=== PATIENT | male | born 1935 | race Caucasian/White ===

== ENCOUNTER 2017-09-14 07:45 | Inpatient (IN) | payer MEDICARE ==
[2017-09-14 08:38] VITALS: BP 132/70
[2017-09-14] MEDS ORDERED: Hydrocodone/APAP 5mg/325mg Tab PO PRN (09:46)
[2017-09-14] MEDS ORDERED: Maalox 30 mL Cup PO PRN (09:46)
[2017-09-14] MEDS ORDERED: Ipratropium Neb 0.5 mg/2.5 mL UD IH PRN (09:46)
[2017-09-14] MEDS ORDERED: Albuterol Nebulizer 2.5mg/3mL HHN PRN (09:46)
[2017-09-14] MEDS ORDERED: Meperidine 50 mg/mL 1mL Syr ONE ×2 (09:49→10:35)
[2017-09-14] MEDS ORDERED: Midazolam 1mg/ml 2 ml vial IV ONE (09:49)
[2017-09-14] MEDS ORDERED: Atropine Sulfate 1 mg/mL 1 mL Vial IVP PRN (11:01)
[2017-09-14] MEDS ORDERED: Metoclopramide 5 mg/mL 2mL Vial IVP PRN (11:01)
[2017-09-14] MEDS ORDERED: Hydrocodone/APAP 5mg/325mg Tab GT PRN (11:01)
[2017-09-14] MEDS ORDERED: Morphine Sulfate 2 mg/mL 1mL Syr IVP PRN (11:01)
[2017-09-14] MEDS ORDERED: Lactulose 10 Gm/15 mL 30mL UDC GT PRN (11:01)
[2017-09-14] MEDS ORDERED: Meperidine 25 mg/mL 1mL Syr IVP PRN (11:08)
[2017-09-14] MEDS ORDERED: Lactated Ringer 1,000 ML IV SCH (11:15)
--- NOTE | 2017-09-14 11:47 | Operative Report ---
DATE OF SURGERY: 09/14/2017 PREOPERATIVE DIAGNOSES: 1. Stage IV sacral decubitus ulcer. 2. Incontinence. 3. Cervical fracture, C2 with paraplegia. 4. End-stage renal disease. 5. Pneumonia. 6. Dementia. POSTOPERATIVE DIAGNOSES: 1. Stage IV sacral decubitus ulcer. 2. Incontinence. 3. Cervical fracture, C2 with paraplegia. 4. End-stage renal disease. 5. Pneumonia. 6. Dementia. OPERATION DONE: 1. Diverting colostomy. 2. Excisional debridement of sacral decubitus ulcer, size 15 x 12 cm. 3. Application of wound VAC. SURGEON: Thony Alfonso M.D. ANESTHESIA: General. ANESTHESIOLOGIST: Wade Gandara M.D. Informed consent discussed extensively with the and daughter prior to the operation in the condition of fever and fecal contamination as a result of incontinence. ESTIMATED BLOOD LOSS: 10 mL. DESCRIPTION OF ILLNESS: The patient was given general anesthesia. The abdomen was prepped with Betadine and draped in appropriate manner. An incision was made at the midline below the umbilicus to the suprapubic area. ____ to coagulate. Some fluid in the abdominal cavity was aspirated. This was serous. The descending colon was dissected free from the lateral abdominal wall to allow for the descending colon to be freed. The sigmoid was then transected with the LATA instrument and the staple line was reinforced with 3-0 silk. The ascending portion was brought out as a colostomy in the left lower quadrant of the abdomen. The mesentery was sutured to the lateral abdominal wall with 3-0 silk to prevent internal herniation. The colon was then sutured to the anterior abdominal wall utilizing 3-0 silk. The abdominal incision was closed with running suture of #1 PDS and the skin was closed with subcuticular suture of 4-0 Vicryl. Dermabond was placed over this for dressing. The colostomy was matured utilizing an inverting suture of 4-0 Vicryl and colostomy bag was placed over this. The patient then turned on the right lateral decubitus physician and the sacral decubitus ulcer was debrided with scissors. Following satisfactory debridement, silver foam was applied over the wound, which was then connected to wound VAC. The patient tolerated the procedure well and will be sent to ICU for further observation. JOB# [id number]
--- NOTE | 2017-09-14 12:17 | Diagnostic Imaging Report ---
CHEST X-RAY: AP view INDICATION: ET tube placement COMPARISON: None FINDINGS: ET tube is seen with tip 4.8 cm above the josé miguel. NG tube is visualized the spinal distal tip not seen. Bilateral effusions and hazy infiltrates are noted. Mild cardiomegaly is noted with atherosclerosis. There is evidence of prior median sternotomy. Postsurgical changes of the lower cervical and cervical thoracic spine are noted. IMPRESSION: ET tube with tip 4.8 cm above the José Miguel. Bilateral pleural effusions with diffuse bilateral infiltrates. Postsurgical changes.
[2017-09-14 13:13] LABS: BE(B) 3.3 mEq/L (-3.0-3.0); HCO3 27.6 mEq/L (20.0-26.0); pH 7.44 (7.35-7.45)
[2017-09-14 13:14] LABS: ABG SOURCE Arterial; ALLEN TEST Positive; CRITICAL VALUES REPORTED BY DM; FIO2 100; MECH RATE 14; MECH VT 500
--- NOTE | 2017-09-14 14:09 | Diagnostic Imaging Report ---
Portable chest x-ray HISTORY: Shortness of breath, endotracheal tube placement Compared with prior exam performed earlier in the day (1126 hours), an endotracheal tube tip is approximately 5.0 cm above the josé miguel. There is density in the left lower hemithorax suggesting a small effusion. IMPRESSION: 1. Endotracheal tube tip approximately 5.0 cm above the josé miguel. This may be advanced approximately 2.0 cm.
[2017-09-14] MEDS ORDERED: Piperacillin/Tazobact 2.25 gm in 0.9% NS 50 ML IV SCH (14:30)
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
[2017-09-14 14:45] LABS: HEMATOCRIT 29.6 % (41.0-60); HEMOGLOBIN 9.8 gm/dL (12-16); MEAN CELL VOLUME 90.6 fl (80-99); MEAN CORPUSCULAR HGB CONC 33.2 pg (28.0-36.0); PLATELET COUNT 274 Th/cmm (150-400); RED BLOOD COUNT 3.27 Mil/cmm (3.80-5.80); RED CELL DISTRIBUTION WIDTH 15.8 % (11.5-20.0)
[2017-09-14 14:57] LABS: WHITE BLOOD COUNT 27.2 Th/cmm (4.8-10.8)
[2017-09-14 15:02] LABS: ANION GAP 14.3 (7.0-16.0); BUN/CREATININE RATIO 24.9; CALCIUM SERUM 9.5 mg/dL (8.6-10.3); CARBON DIOXIDE 24.4 mEq/L (21.0-31.0); CHLORIDE 97 mEq/L (98-107); GLUCOSE 175 mg/dL (70-105); POTASSIUM SERUM 4.7 mEq/L (3.5-5.1); SODIUM SERUM 131 mEq/L (136-145)
[2017-09-14] MEDS: Ipratropium Neb 0.5 mg/2.5 mL UD IH SCH ×2 (15:06→18:45)
[2017-09-14] MEDS: Albuterol Nebulizer 2.5mg/3mL HHN SCH ×2 (15:06→18:45)
[2017-09-14 15:11] LABS: BUN - UREA NITROGEN 112 mg/dL (7-25)
[2017-09-14 15:12] LABS: CREATININE - SERUM 4.5 mg/dL (0.7-1.3)
[2017-09-14 15:38] LABS: BAND NEUTROPHILE 5 % (0-10); BASOPHIL 0 % (0-3); EOSINOPHIL 0 % (0-5); NEUTROPHILS 87 % (40-80); PLATELET ESTIMATE ADEQUATE (NORMAL); PLATELET MORPHOLOGY NORMAL (NORMAL); TOTAL CELLS COUNTED 100
[2017-09-14] MEDS: INSULIN ASPART, RECOMBINANT 100 UNITS/ML SUBQ SCH ×3 (18:56→20:59)
[2017-09-14] MEDS: Lactobacillus Rhamnosus 10 Billion CFU Capsule GT SCH (19:03)
[2017-09-14] MEDS: D5-0.9%NS 1,000 ML IV SCH (19:05)
[2017-09-14] MEDS: Meropenem 500 MG in Sodium Chloride 0.9% 100 ML IV SCH (19:10)
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
[2017-09-14] MEDS: Chlorhexidine Gluconate 0.12% 15mL Mouthwash MM SCH (20:33)
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
[2017-09-15] MEDS: Meropenem 500 MG in Sodium Chloride 0.9% 100 ML IV SCH ×2 (04:50→18:21)
[2017-09-15 07:17] LABS: HEMATOCRIT 26.7 % (41.0-60); MEAN CELL VOLUME 88.6 fl (80-99); MEAN CORPUSCULAR HEMOGLOBIN 29.8 pg (27.0-31.0); MEAN CORPUSCULAR HGB CONC 33.7 pg (28.0-36.0); MEAN PLATELET VOLUME 8.8 fl; PLATELET COUNT 247 Th/cmm (150-400); RED BLOOD COUNT 3.01 Mil/cmm (3.80-5.80)
[2017-09-15 07:42] LABS: WHITE BLOOD COUNT 29.1 Th/cmm (4.8-10.8)
[2017-09-15 07:45] LABS: ALB/GLOB RATIO 0.6 (1.0-1.8); ALKALINE PHOSPHATASE 238 U/L (34-104); ANION GAP 17.6 (7.0-16.0); BILIRUBIN,TOTAL 0.6 mg/dL (0.3-1.0); BUN/CREATININE RATIO 23.5; CALCIUM SERUM 9.2 mg/dL (8.6-10.3); CARBON DIOXIDE 22.5 mEq/L (21.0-31.0); CHLORIDE 98 mEq/L (98-107); GLUCOSE 221 mg/dL (70-105); MAGNESIUM 2.7 mg/dL (1.9-2.7); PHOSPHOROUS 3.7 mg/dL (2.5-5.0); POTASSIUM SERUM 5.1 mEq/L (3.5-5.1); SGOT 20 U/L (13-39); SGPT/ALT 42 U/L (7-52); SODIUM SERUM 133 mEq/L (136-145)
[2017-09-15] MEDS: INSULIN ASPART, RECOMBINANT 100 UNITS/ML SUBQ SCH ×4 (07:48→21:00)
[2017-09-15] MEDS: Ipratropium Neb 0.5 mg/2.5 mL UD IH SCH ×4 (07:50→19:18)
[2017-09-15] MEDS: Albuterol Nebulizer 2.5mg/3mL HHN SCH ×4 (07:50→19:18)
[2017-09-15 08:33] LABS: BUN - UREA NITROGEN 115 mg/dL (7-25); CREATININE - SERUM 4.9 mg/dL (0.7-1.3)
[2017-09-15 08:40] LABS: ANISOCYTOSIS 1+; BAND NEUTROPHILE 5 % (0-10); NEUTROPHILS 91 % (40-80); PLATELET ESTIMATE ADEQUATE (NORMAL); PLATELET MORPHOLOGY NORMAL (NORMAL); TOTAL CELLS COUNTED 100
[2017-09-15] MEDS: Venelex 60gm Tube TP SCH ×3 (08:45→16:35)
[2017-09-15] MEDS ORDERED: Multivitamin 5 mL UDC GT SCH (09:00)
[2017-09-15] MEDS ORDERED: COLLAGENASE CLOSTRIDIUM HIST MC SCH (09:00)
[2017-09-15] MEDS: Lactobacillus Rhamnosus 10 Billion CFU Capsule GT SCH (09:51)
[2017-09-15] MEDS: Chlorhexidine Gluconate 0.12% 15mL Mouthwash MM SCH ×2 (09:55→20:46)
[2017-09-15] MEDS: D5-0.9%NS 1,000 ML IV SCH ×2 (10:01→12:00)
--- NOTE | 2017-09-15 11:27 | Consultation ---
Consult Note - Consult Note Service Date: 09/15/17 Referring Physician: Eusebio Alvares Consult Note: PHYSICIAN Consultation Note: Date of Admission: 09/14/17 Purpose of Consultation: ESRD Chief Complaint: History of Present Illness: Patient MAURICE RUTLEDGE was admitted to location Intensive Care Unit with SACRUM WOUND. HE WAS TRANSFERRED FROM [facility] FOR DIVERTING COLOSTOMY, EXCISIONAL DEBRIDEMENT OF SACRAL DECUB ULCER AND APPLICATION OF WOUND VAC. HE UNDERWENT SURGERY YESTERDAY AND IS DUE FOR HIS DIALYSIS TODAY. CURRENTLY HE IS SEEN & EXAMINED, INTUBATED IN THE ICU. Past Medical History: PER HPI, AND DIAGNOSES SEEN BELOW Diagnoses SEPSIS, UNSPECIFIED ORGANISM (09/14/17) ANEMIA, UNSPECIFIED (09/14/17) TYPE 2 DIABETES MELLITUS W DIABETIC CHRONIC KIDNEY DISEASE (09/14/17) HYPERLIPIDEMIA, UNSPECIFIED (09/14/17) HYPOKALEMIA (09/14/17) UNSPECIFIED DEMENTIA WITHOUT BEHAVIORAL DISTURBANCE (09/14/17) NICOTINE DEPENDENCE, CIGARETTES, UNCOMPLICATED (09/14/17) PARAPLEGIA, UNSPECIFIED (09/14/17) HYP CHR KIDNEY DISEASE W STAGE 5 CHR KIDNEY DISEASE OR ESRD (09/14/17) ATHSCL HEART DISEASE OF [place] CORONARY ARTERY W/O ANG PCTRS (09/14/17) OLD MYOCARDIAL INFARCTION (09/14/17) UNSPECIFIED ATRIAL FLUTTER (09/14/17) UNSPECIFIED DIASTOLIC (CONGESTIVE) HEART FAILURE (09/14/17) PNEUMONITIS DUE TO INHALATION OF FOOD AND VOMIT (09/14/17) ACUTE RESPIRATORY FAILURE, UNSP W HYPOXIA OR HYPERCAPNIA (09/14/17) PRESSURE ULCER OF SACRAL REGION, STAGE 4 (09/14/17) END STAGE RENAL DISEASE (09/14/17) UNSPECIFIED URINARY INCONTINENCE (09/14/17) GASTROSTOMY STATUS (09/14/17) PRESENCE OF AORTOCORONARY BYPASS GRAFT (09/14/17) DEPENDENCE ON RENAL DIALYSIS (09/14/17) Allergies Allergy/AdvReac Type Severity Reaction Status Date / Time No Known Allergies Allergy Verified 09/14/17 08:12 Vital Signs Temp 97.3 F 09/15/17 07:00 Pulse 86 09/15/17 11:00 Resp 18 09/15/17 11:00 BP 126/67 09/15/17 11:00 Pulse Ox 100 09/15/17 11:00 Intake & Output 09/14/17 09/15/17 09/15/17 18:59 06:59 18:59 Intake Total 1073.333 126.667 Output Total 0 30 Balance 0 1043.333 126.667 Weight (lbs) 71.169 kg 71.214 kg 71.214 kg Intake: Intake, IV Amount 1073.333 126.667 D5-0.9%Ns 1,000 ml @ 80 873.333 126.667 mls/hr IV .[id number] [facility] Rx #:[id number] Meropenem 500 mg In 200 Sodium Chloride 0.9% 100 ml @ 100 mls/hr IV Q12H [facility]I Rx#:[id number] Oral 0 Output: Urine 0 0 Other 30 Other: # Bowel Movements 0 0 Laboratory Results - last 24 hr 09/14/17 09/14/17 09/14/17 13:01 14:29 14:29 WBC 27.2 H* RBC 3.27 L Hgb 9.8 L Hct 29.6 L MCV 90.6 MCH 30.0 MCHC Differential 33.2 RDW 15.8 Plt Count 274 MPV 9.0 Band Neutrophils % 5 Neutrophils (Manual) 87 H Lymphocytes 3 L Monocytes 5 Eosinophils 0 Basophils 0 Platelet Estimate ADEQUATE Platelet Morphology NORMAL Anisocytosis RBC Morph Micro Appear NORMAL Specimen Source Arterial Sample Site Right Radial pH 7.44 pCO2 41.0 pO2 343.0 H HCO3 27.6 H Base Excess 3.3 H O2 Saturation 100.0 Willi Test Positive Vent Rate 14 Inspired O2 100 Tidal Volume 500 PEEP 5 Pressure (ins/psv/peep) N/A Critical Value DM Sodium 131 L Potassium 4.7 Chloride 97 L Carbon Dioxide 24.4 Anion Gap 14.3 BUN 112 H* Creatinine 4.5 H* Est GFR ( Amer) TNP Est GFR (Non-Af Amer) TNP BUN/Creatinine Ratio 24.9 Glucose 175 H POC Glucose Hemoglobin A1c % Calcium 9.5 Phosphorus Magnesium Total Bilirubin AST ALT Alkaline Phosphatase B-Natriuretic Peptide Total Protein Albumin Globulin Albumin/Globulin Ratio Random Vancomycin 09/14/17 09/14/17 09/14/17 14:30 14:30 18:54 WBC RBC Hgb Hct MCV MCH MCHC Differential RDW Plt Count MPV Band Neutrophils % Neutrophils (Manual) Lymphocytes Monocytes Eosinophils Basophils Platelet Estimate Platelet Morphology Anisocytosis RBC Morph Micro Appear Specimen Source Sample Site pH pCO2 pO2 HCO3 Base Excess O2 Saturation Willi Test Vent Rate Inspired O2 Tidal Volume PEEP Pressure (ins/psv/peep) Critical Value Sodium Potassium Chloride Carbon Dioxide Anion Gap BUN Creatinine Est GFR ( Amer) Est GFR (Non-Af Amer) BUN/Creatinine Ratio Glucose POC Glucose 128 H Hemoglobin A1c % Calcium Phosphorus Magnesium Total Bilirubin AST ALT Alkaline Phosphatase B-Natriuretic Peptide 4140.0 H Total Protein Albumin Globulin Albumin/Globulin Ratio Random Vancomycin 17.0 09/14/17 09/15/17 09/15/17 20:37 06:35 06:39 WBC 29.1 H* RBC 3.01 L Hgb 9.0 L Hct 26.7 L MCV 88.6 MCH 29.8 MCHC Differential 33.7 RDW 16.0 Plt Count 247 MPV 8.8 Band Neutrophils % 5 Neutrophils (Manual) 91 H Lymphocytes 3 L Monocytes 1 L Eosinophils Basophils Platelet Estimate ADEQUATE Platelet Morphology NORMAL Anisocytosis 1+ RBC Morph Micro Appear ABNORMAL Specimen Source Sample Site pH pCO2 pO2 HCO3 Base Excess O2 Saturation Willi Test Vent Rate Inspired O2 Tidal Volume PEEP Pressure (ins/psv/peep) Critical Value Sodium Potassium Chloride Carbon Dioxide Anion Gap BUN Creatinine Est GFR ( Amer) Est GFR (Non-Af Amer) BUN/Creatinine Ratio Glucose POC Glucose 183 H Hemoglobin A1c % 6.5 H Calcium Phosphorus Magnesium Total Bilirubin AST ALT Alkaline Phosphatase B-Natriuretic Peptide Total Protein Albumin Globulin Albumin/Globulin Ratio Random Vancomycin 09/15/17 09/15/17 06:39 07:46 WBC RBC Hgb Hct MCV MCH MCHC Differential RDW Plt Count MPV Band Neutrophils % Neutrophils (Manual) Lymphocytes Monocytes Eosinophils Basophils Platelet Estimate Platelet Morphology Anisocytosis RBC Morph Micro Appear Specimen Source Sample Site pH pCO2 pO2 HCO3 Base Excess O2 Saturation Willi Test Vent Rate Inspired O2 Tidal Volume PEEP Pressure (ins/psv/peep) Critical Value Sodium 133 L Potassium 5.1 Chloride 98 Carbon Dioxide 22.5 Anion Gap 17.6 H BUN 115 H* Creatinine 4.9 H* Est GFR ( Amer) TNP Est GFR (Non-Af Amer) TNP BUN/Creatinine Ratio 23.5 Glucose 221 H POC Glucose 233 H Hemoglobin A1c % Calcium 9.2 Phosphorus 3.7 Magnesium 2.7 Total Bilirubin 0.6 AST 20 ALT 42 Alkaline Phosphatase 238 H B-Natriuretic Peptide Total Protein 6.3 Albumin 2.3 L Globulin 4.0 Albumin/Globulin Ratio 0.6 L Random Vancomycin Home Medication Medication Instructions Recorded Type Albuterol Nebulizer 2.5mg/3mL 3 ml INH Q6HR PRN 09/14/17 History [Albuterol Neb UD*] Amlodipine Besylate 5 mg GT DAILY 09/14/17 History Atropine Sulfate [Atropine] 1 mg IVP Q4HR PRN 09/14/17 History Collagenase Clostridium Hist. 1 each MC DAILY 09/14/17 History [Collagenase] Dextrose 50% 50 ml IVP PRN 09/14/17 History Dextrose [Glucose Gel] 38 gm PRN 09/14/17 History Enalaprilat [Vasotec] 2.5 mg IV Q4HR PRN 09/14/17 History Famotidine [Pepcid] 20 mg GT BID 09/14/17 History Folic Acid [Folate*] 1 mg GT DAILY 09/14/17 History Hydralazine HCl 10 mg IVP Q4HR PRN 09/14/17 History Hydrocodone/Acetaminophen [Lortab 1 tab GT Q6HR PRN 09/14/17 History 5/325 325 mg-5 mg*] Insulin Human Isophane (NPH) 12 units SQ BID 09/14/17 History [NovoLIN N] Insulin Human Regular [NovoLIN R*] SQ 09/14/17 History Lactobacillus Acidophilus 1 each GT Q8HR 09/14/17 History [Acidophilus Lactobacillus] Lactulose 10 gm GT Q12HR PRN 09/14/17 History Losartan/Hydrochlorothiazide 100 mg GT DAILY 09/14/17 History [Losartan-Hctz 100-25 mg Tab] Metoclopramide [Reglan] 10 mg IVP Q6HR PRN 09/14/17 History Metoprolol Tartrate [Lopressor] 50 mg GT BID 09/14/17 History Morphine Sulfate/0.9% NaCl/Pf 2 mg IVP Q6HR PRN 09/14/17 History [Morphine 2 mg/2 ml-0.9% NaCl] Multivitamin [Tab-A-Cirilo] 1 tab GT DAILY 09/14/17 History Current Medications Generic Name Dose Route Start Last Admin Trade Name Freq PRN Reason Stop Dose Admin Acetaminophen 650 mg 09/14/17 09:46 Tylenol PO 11/13/17 09:45 Q4H PRN Pain Or Fever above 101 Acetaminophen/Hydrocodone Bitart 1 tab 09/14/17 09:46 Albia 5mg/325mg PO 11/13/17 09:45 Q4H PRN Pain (Severe) Acetaminophen/Hydrocodone Bitart 1 tab 09/14/17 11:01 Albia 5mg/325mg GT 11/13/17 11:00 Q6HR PRN Pain (Mild) Al Hydrox/Mg Hydrox/Simethicone 30 ml 09/14/17 09:46 Maalox PO 11/13/17 09:45 Q6H PRN Dyspepsia Albuterol Sulfate 2.5 mg 09/14/17 09:46 Albuterol 2.5mg/3ml Neb Ud HHN 11/13/17 09:45 Q2HRT PRN Shortness of Breath or Wheeze Albuterol Sulfate 2.5 mg 09/14/17 15:00 09/15/17 07:50 Albuterol 2.5mg/3ml Neb Ud HHN 11/13/17 14:59 2.5 mg QIDRT MAGI Administration Amlodipine Besylate 5 mg 09/15/17 09:00 09/15/17 10:14 Norvasc GT 11/14/17 08:59 Not Given DAILY MAGI Atropine Sulfate 1 mg 09/14/17 11:01 Atropine IVP 11/13/17 11:00 Q4HR PRN BRADYCARDIA Chlorhexidine Gluconate 15 ml 09/14/17 20:00 09/15/17 09:55 Peridex MM 11/13/17 19:59 15 ml 0800,2000 MAGI Administration Famotidine 20 mg 09/15/17 09:00 09/15/17 09:51 Pepcid IVP 11/14/17 08:59 20 mg Q12H MAGI Administration Folic Acid 1 mg 09/15/17 09:00 09/15/17 09:52 Folate GT 11/14/17 08:59 1 mg DAILY MAGI Administration Hydrochlorothiazide 25 mg 09/15/17 09:00 09/15/17 10:14 Hctz GT 11/14/17 08:59 Not Given DAILY MAGI Dextrose/Sodium Chloride 1,000 mls @ 80 mls/hr 09/14/17 10:00 09/15/17 10:01 D5-0.9%Ns IV 11/13/17 09:59 80 mls/hr .[id number] MAGI Administration Meropenem 500 mg/ Sodium 100 mls @ 100 mls/hr 09/14/17 17:00 09/15/17 06:55 Chloride IV 11/13/17 16:59 Infused Q12H MAGI Infusion Amikacin Sulfate 350 mg/ 101.4 mls @ 100 mls/hr 09/15/17 14:00 Sodium Chloride IV 09/15/17 18:00 1400 [facility] Vancomycin HCl 500 mg/ Sodium 100 mls @ 100 mls/hr 09/15/17 15:00 Chloride IV 09/15/17 18:00 1500 [facility] Insulin Aspart 0 units 09/14/17 11:30 09/15/17 07:48 Novolog SUBQ 11/13/17 11:29 Not Given ACHS [facility] Protocol Ipratropium Thornton 0.5 mg 09/14/17 09:46 Atrovent Neb 0.5mg/2.5ml 11/13/17 09:45 Q2HRT PRN Shortness of Breath or Wheeze Ipratropium Thornton 0.5 mg 09/14/17 15:00 09/15/17 07:50 Atrovent Neb 0.5mg/2.5ml 11/13/17 14:59 0.5 mg QIDRT MAGI Administration Lactobacillus Rhamnosus 1 each 09/14/17 13:00 09/15/17 09:51 Culturelle GT 11/13/17 12:59 1 each DAILY MAGI Administration Lactulose 10 gm 09/14/17 11:01 Cephulac GT Q12HR PRN CONSTIPATION Losartan Potassium 100 mg 09/15/17 09:00 09/15/17 10:14 Cozaar GT 11/14/17 08:59 Not Given DAILY [facility]I Metoclopramide HCl 10 mg 09/14/17 11:01 Reglan IVP 11/13/17 11:00 Q6HR PRN Nausea / Vomiting Metoprolol Tartrate 50 mg 09/14/17 17:00 09/15/17 10:14 Lopressor GT 11/13/17 16:59 Not Given BID MAGI Miscellaneous 1 each 09/15/17 09:00 Collagenase Clostridium Hist. [Collagenase] 11/14/17 08:59 DAILY MAGI Miscellaneous 1 ea 09/14/17 13:30 Vancomycin Iv Per Pharmacy 11/13/17 13:29 PRN MAGI Miscellaneous 1 ea 09/14/17 15:03 Amikacin Iv Per Pharmacy MC 11/13/17 15:02 PRN PRN PROTOCOL Morphine Sulfate 2 mg 09/14/17 09:46 Morphine IVP 11/13/17 09:45 Q4H PRN Pain (Severe) Morphine Sulfate 2 mg 09/14/17 11:01 Morphine IVP Q6HR PRN PAIN Multivitamins/Vitamin C 1 tab 09/15/17 09:44 Theragran GT 11/14/17 08:59 DAILY MAGI Ondansetron HCl 4 mg 09/14/17 09:46 Zofran IV 11/13/17 09:45 Q8H PRN Nausea / Vomiting Review of Systems: A 12 point ROS was reviewed with the pertinent positive and negatives noted in the HPI. Social History Smoking Status Smoker, status unknown Physical Exam: General: INTUBATED, AROUSABLE HEENT: SCLERAE ANICTERIC, OP MOIST Neck: SUPPLE +CERVICAL COLLAR Cardio: S1S2 RRR Respiratory: BIBASILAR RALES Abdominal: SOFT +COLOSTOMY Genital/Urinary: NOT DONE Extremities: NO EDEMA Neurological: N/A Assessment: 1. ESRD/DIALYSIS STATUS 2. ANEMIA W ESRD 3. ACUTE RESP FAILURE 4. INFECTED SACRAL DECUB S/P EXCISIONAL DEBRIDEMENT AND PLACEMENT OF WOUND VAC 5. DM2 WITH ESRD 6. HTN W ESRD 7. DIVERTING COLOSTOMY STATUS Plan: 1. DIALYSIS THIS PM 2. CONT ABX 3. WOUND CARE 4. WEAN VENT PER PULM Signed, Gill Vu [id number]
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
--- NOTE | 2017-09-15 13:36 | General Progress Note ---
Subjective - Review of Systems Service Date: 09/15/17 Events since last encounter: for possible extubation today right hip ulcer need debridement Objective - Results Result Diagrams: 09/15/17 06:39 09/15/17 06:39 Recent Labs: Laboratory Last Values WBC 29.1 Th/cmm (4.8-10.8) H* 09/15/17 06:39 RBC 3.01 Mil/cmm (3.80-5.80) L 09/15/17 06:39 Hgb 9.0 gm/dL (12-16) L 09/15/17 06:39 Hct 26.7 % (41.0-60) L 09/15/17 06:39 MCV 88.6 fl (80-99) 09/15/17 06:39 MCH 29.8 pg (27.0-31.0) 09/15/17 06:39 MCHC Differential 33.7 pg (28.0-36.0) 09/15/17 06:39 RDW 16.0 % (11.5-20.0) 09/15/17 06:39 Plt Count 247 Th/cmm (150-400) 09/15/17 06:39 MPV 8.8 fl 09/15/17 06:39 Band Neutrophils % 5 % (0-10) 09/15/17 06:39 Neutrophils (Manual) 91 % (40-80) H 09/15/17 06:39 Lymphocytes 3 % (20-50) L 09/15/17 06:39 Monocytes 1 % (2-10) L 09/15/17 06:39 Eosinophils 0 % (0-5) 09/14/17 14:29 Basophils 0 % (0-3) 09/14/17 14:29 Platelet Estimate ADEQUATE (NORMAL) 09/15/17 06:39 Platelet Morphology NORMAL (NORMAL) 09/15/17 06:39 Anisocytosis 1+ 09/15/17 06:39 RBC Morph Micro Appear ABNORMAL (NORMAL) 09/15/17 06:39 Specimen Source Arterial 09/14/17 13:01 Sample Site Right Radial 09/14/17 13:01 pH 7.44 (7.35-7.45) 09/14/17 13:01 pCO2 41.0 mmHg (35.0-45.0) 09/14/17 13:01 pO2 343.0 mmHg (80.0-100.0) H 09/14/17 13:01 HCO3 27.6 mEq/L (20.0-26.0) H 09/14/17 13:01 Base Excess 3.3 mEq/L (-3.0-3.0) H 09/14/17 13:01 O2 Saturation 100.0 % (92.0-100.0) 09/14/17 13:01 Willi Test Positive 09/14/17 13:01 Vent Rate 14 09/14/17 13:01 Inspired O2 100 09/14/17 13:01 Tidal Volume 500 09/14/17 13:01 PEEP 5 09/14/17 13:01 Pressure (ins/psv/peep) N/A 09/14/17 13:01 Critical Value DM 09/14/17 13:01 Sodium 133 mEq/L (136-145) L 09/15/17 06:39 Potassium 5.1 mEq/L (3.5-5.1) 09/15/17 06:39 Chloride 98 mEq/L (98-107) 09/15/17 06:39 Carbon Dioxide 22.5 mEq/L (21.0-31.0) 09/15/17 06:39 Anion Gap 17.6 (7.0-16.0) H 09/15/17 06:39 BUN 115 mg/dL (7-25) H* 09/15/17 06:39 Creatinine 4.9 mg/dL (0.7-1.3) H* 09/15/17 06:39 Est GFR ( Amer) TNP 09/15/17 06:39 Est GFR (Non-Af Amer) TNP 09/15/17 06:39 BUN/Creatinine Ratio 23.5 09/15/17 06:39 Glucose 221 mg/dL (70-105) H 09/15/17 06:39 POC Glucose 251 MG/DL (70 - 105) H 09/15/17 12:26 Hemoglobin A1c % 6.5 % (4.0-6.0) H 09/15/17 06:35 Calcium 9.2 mg/dL (8.6-10.3) 09/15/17 06:39 Phosphorus 3.7 mg/dL (2.5-5.0) 09/15/17 06:39 Magnesium 2.7 mg/dL (1.9-2.7) 09/15/17 06:39 Total Bilirubin 0.6 mg/dL (0.3-1.0) 09/15/17 06:39 AST 20 U/L (13-39) 09/15/17 06:39 ALT 42 U/L (7-52) 09/15/17 06:39 Alkaline Phosphatase 238 U/L (34-104) H 09/15/17 06:39 B-Natriuretic Peptide 4140.0 pg/mL (5.0-100.0) H 09/14/17 14:30 Total Protein 6.3 gm/dL (6.0-8.3) 09/15/17 06:39 Albumin 2.3 gm/dL (4.2-5.5) L 09/15/17 06:39 Globulin 4.0 gm/dL 09/15/17 06:39 Albumin/Globulin Ratio 0.6 (1.0-1.8) L 09/15/17 06:39 Random Vancomycin 17.0 ug/mL (5.0-40.0) 09/14/17 14:30 - Physical Exam Vitals and I&O: Vital Signs Temp 97.3 F 09/15/17 07:00 Pulse 84 09/15/17 11:58 Resp 18 09/15/17 11:00 BP 126/67 09/15/17 11:00 Pulse Ox 100 09/15/17 11:58 Intake & Output 09/14/17 09/15/17 09/15/17 18:59 06:59 18:59 Intake Total 1073.333 126.667 Output Total 0 30 Balance 0 1043.333 126.667 Weight (lbs) 71.169 kg 71.214 kg 71.214 kg Intake: Intake, IV Amount 1073.333 126.667 D5-0.9%Ns 1,000 ml @ 80 873.333 126.667 mls/hr IV .[id number] [facility] Rx #:[id number] Meropenem 500 mg In 200 Sodium Chloride 0.9% 100 ml @ 100 mls/hr IV Q12H [facility] Rx#:[id number] Oral 0 Output: Urine 0 0 Other 30 Other: # Bowel Movements 0 0 Active Medications: Current Medications Acetaminophen (Tylenol) 650 mg PO Q4H PRN PRN Reason: Pain Or Fever above 101 Stop: 11/13/17 09:45 Acetaminophen/Hydrocodone Bitart ([place] 5mg/325mg) 1 tab PO Q4H PRN PRN Reason: Pain (Severe) Stop: 11/13/17 09:45 Acetaminophen/Hydrocodone Bitart ([place] 5mg/325mg) 1 tab GT Q6HR PRN PRN Reason: Pain (Mild) Stop: 11/13/17 11:00 Al Hydrox/Mg Hydrox/Simethicone (Maalox) 30 ml PO Q6H PRN PRN Reason: Dyspepsia Stop: 11/13/17 09:45 Albuterol Sulfate (Albuterol 2.5mg/3ml Neb Ud) 2.5 mg HHN Q2HRT PRN PRN Reason: Shortness of Breath or Wheeze Stop: 11/13/17 09:45 Albuterol Sulfate (Albuterol 2.5mg/3ml Neb Ud) 2.5 mg HHN QIDRT [facility] Stop: 11/13/17 14:59 Last Admin: 09/15/17 11:59 Dose: 2.5 mg Amlodipine Besylate (Norvasc) 5 mg GT DAILY [facility] Stop: 11/14/17 08:59 Last Admin: 09/15/17 10:14 Dose: Not Given Atropine Sulfate (Atropine) 1 mg IVP Q4HR PRN PRN Reason: BRADYCARDIA Stop: 11/13/17 11:00 Chlorhexidine Gluconate (Peridex) 15 ml MM 0800,2000 [facility] Stop: 11/13/17 19:59 Last Admin: 09/15/17 09:55 Dose: 15 ml Famotidine (Pepcid) 20 mg IVP Q12H [facility] Stop: 11/14/17 08:59 Last Admin: 09/15/17 09:51 Dose: 20 mg Folic Acid (Folate) 1 mg GT DAILY [facility] Stop: 11/14/17 08:59 Last Admin: 09/15/17 09:52 Dose: 1 mg Hydrochlorothiazide (Hctz) 25 mg GT DAILY [facility] Stop: 11/14/17 08:59 Last Admin: 09/15/17 10:14 Dose: Not Given Meropenem 500 mg/ Sodium (Chloride) 100 mls @ 100 mls/hr IV Q12H [facility] Stop: 11/13/17 16:59 Last Infusion: 09/15/17 06:55 Dose: Infused Amikacin Sulfate 350 mg/ (Sodium Chloride) 101.4 mls @ 100 mls/hr IV 1800 [facility] Stop: 09/15/17 23:00 Vancomycin HCl 500 mg/ Sodium (Chloride) 100 mls @ 100 mls/hr IV 2000 [facility] Stop: 09/15/17 23:59 Dextrose/Sodium Chloride (D5-0.9%Ns) 1,000 mls @ 40 mls/hr IV .Q24H [facility] Stop: 11/13/17 09:59 Insulin Aspart (Novolog) 0 units SUBQ ACHS [facility] PRN Reason: Protocol Stop: 11/13/17 11:29 Last Admin: 09/15/17 07:48 Dose: Not Given Ipratropium [place] (Atrovent Neb 0.5mg/2.5ml) 0.5 mg IH Q2HRT PRN PRN Reason: Shortness of Breath or Wheeze Stop: 11/13/17 09:45 Ipratropium [place] (Atrovent Neb 0.5mg/2.5ml) 0.5 mg IH QIDRT [facility] Stop: 11/13/17 14:59 Last Admin: 09/15/17 11:58 Dose: 0.5 mg Lactobacillus Rhamnosus (Culturelle) 1 each GT DAILY [facility] Stop: 11/13/17 12:59 Last Admin: 09/15/17 09:51 Dose: 1 each Lactulose (Cephulac) 10 gm GT Q12HR PRN PRN Reason: CONSTIPATION Losartan Potassium (Cozaar) 100 mg GT DAILY [facility] Stop: 11/14/17 08:59 Last Admin: 09/15/17 10:14 Dose: Not Given Metoclopramide HCl (Reglan) 10 mg IVP Q6HR PRN PRN Reason: Nausea / Vomiting Stop: 11/13/17 11:00 Metoprolol Tartrate (Lopressor) 50 mg GT BID [facility] Stop: 11/13/17 16:59 Last Admin: 09/15/17 10:14 Dose: Not Given Miscellaneous (Collagenase Clostridium Hist. [Collagenase]) 1 each MC DAILY [facility] Stop: 11/14/17 08:59 Miscellaneous (Vancomycin Iv Per Pharmacy) 1 ea MC PRN [facility] Stop: 11/13/17 13:29 Miscellaneous (Amikacin Iv Per Pharmacy) 1 ea MC PRN PRN PRN Reason: PROTOCOL Stop: 11/13/17 15:02 Morphine Sulfate (Morphine) 2 mg IVP Q4H PRN PRN Reason: Pain (Severe) Stop: 11/13/17 09:45 Morphine Sulfate (Morphine) 2 mg IVP Q6HR PRN PRN Reason: PAIN Multivitamins/Vitamin C (Theragran) 1 tab GT DAILY [facility] Stop: 11/14/17 08:59 Ondansetron HCl (Zofran) 4 mg IV Q8H PRN PRN Reason: Nausea / Vomiting Stop: 11/13/17 09:45 - Procedures Procedures: Procedures Procedure Code Date BYPASS ASCENDING COLON TO CUTANEOUS, OPEN APPROACH [id number] 09/14/17 COLOSTOMY 67032 09/14/17 [place] SUBQ TISSUE 20 SQ CM/< 38584 09/14/17 EXCISION OF BACK SUBCU/FASCIA, OPEN APPROACH [id number] 09/14/17 RESPIRATORY VENTILATION, 24-96 CONSECUTIVE HOURS [id number] 09/14/17 Nutritional Asmnt/Malnutr-PDOC - Dietary Evaluation Malnutrition Findings (Please click <Entered> for more info): Nutritional Asmnt/Malnutrition Start: 09/15/17 12: 18 Text: Status: Active Freq: Document 09/15/17 12:18 MMULHERN (Rec: 09/15/17 12:29 MMULHERN [facility]) Nutritional Asmnt/Malnutrition Patient General Information Nutritional Screening High Risk Screening Diagnosis sacrum wound Subjective Information Per nursing notes, patient with multiple pressure wounds, 09/14 had surgery for diverting colostomy and wound vac appliaction. Patient remains intubated. Patient receives hemodialysis. G tube to low intermitent suction. Current Diet Order/ Nutrition Support NPO Patient / S.O Not Indicated Pertinent Medications maalox, D5-0.9% NS @ 80ml/hr, pepcid, folate, novolog, culturelle, lactulose, cozaar, reglan, vancomycin, theragran , zofran Pertinent Labs (09/15) Na 133, K 5.1, BUN 115 , Cr 4.9 (HD patient), Glucose 128-233, HGA1C 6.5, alkaline phosphatase 238, BNP 4140, albumin 2.3 Nutritional Hx/Data Height 1.98 m Height (Calculated Centimeters) 198.1 Current Weight (lbs) 71.214 kg Weight (Calculated Kilograms) 71.2 Weight (Calculated Grams) 36140.0 [place] Body Weight 214 % [place] Body Weight 73 Weight Status Underweight GI Symptoms Difficult in: Swallowing Food Allergies No Cultural/Ethnic/Jew Belief Noen indicated Skin Integrity/Comment: [place] 11, decubitus ulcer on left hip, right heel, right thigh, sacrum Current %PO intubated Nutritional Problem 2. Problem Problem Altered nutrition related lab values related to Etiology renal dysfunction/ electrolyte imbalance aeb Signs/Symptoms: Na 133, K 5.1, BUN 115, Cr 4.9 (HD patient), Glucose 128-233 1. Problem Problem Increased nutrient needs related to Etiology impaired skin integrity/ hypermetabolic state aeb Signs/Symptoms: patient receives HD and has multiple decubitus ulcers, S/p wound vac application Intervention/Recommendation Comments 1. When medically appropriate, [facility] [place] [facility] Expected Outcomes/Goals Expected Outcomes/Goals Patient receives nutrition within 48 hours, nutrition related labs normalize, weight remains stable or trends toward ideal body weight. F/U as HR 09/17-
--- NOTE | 2017-09-15 16:42 | Infectious Disease Prog Note ---
Infectious Disease Subjective - Review of Systems Service Date: 09/15/17 Subjective: Nonew change, no fever. Infectious Disease Objective - Results Result Diagrams: 09/15/17 06:39 09/15/17 06:39 Recent Labs: Laboratory Last Values WBC 29.1 Th/cmm (4.8-10.8) H* 09/15/17 06:39 RBC 3.01 Mil/cmm (3.80-5.80) L 09/15/17 06:39 Hgb 9.0 gm/dL (12-16) L 09/15/17 06:39 Hct 26.7 % (41.0-60) L 09/15/17 06:39 MCV 88.6 fl (80-99) 09/15/17 06:39 MCH 29.8 pg (27.0-31.0) 09/15/17 06:39 MCHC Differential 33.7 pg (28.0-36.0) 09/15/17 06:39 RDW 16.0 % (11.5-20.0) 09/15/17 06:39 Plt Count 247 Th/cmm (150-400) 09/15/17 06:39 MPV 8.8 fl 09/15/17 06:39 Band Neutrophils % 5 % (0-10) 09/15/17 06:39 Neutrophils (Manual) 91 % (40-80) H 09/15/17 06:39 Lymphocytes 3 % (20-50) L 09/15/17 06:39 Monocytes 1 % (2-10) L 09/15/17 06:39 Eosinophils 0 % (0-5) 09/14/17 14:29 Basophils 0 % (0-3) 09/14/17 14:29 Platelet Estimate ADEQUATE (NORMAL) 09/15/17 06:39 Platelet Morphology NORMAL (NORMAL) 09/15/17 06:39 Anisocytosis 1+ 09/15/17 06:39 RBC Morph Micro Appear ABNORMAL (NORMAL) 09/15/17 06:39 Specimen Source Arterial 09/14/17 13:01 Sample Site Right Radial 09/14/17 13:01 pH 7.44 (7.35-7.45) 09/14/17 13:01 pCO2 41.0 mmHg (35.0-45.0) 09/14/17 13:01 pO2 343.0 mmHg (80.0-100.0) H 09/14/17 13:01 HCO3 27.6 mEq/L (20.0-26.0) H 09/14/17 13:01 Base Excess 3.3 mEq/L (-3.0-3.0) H 09/14/17 13:01 O2 Saturation 100.0 % (92.0-100.0) 09/14/17 13:01 Willi Test Positive 09/14/17 13:01 Vent Rate 14 09/14/17 13:01 Inspired O2 100 09/14/17 13:01 Tidal Volume 500 09/14/17 13:01 PEEP 5 09/14/17 13:01 Pressure (ins/psv/peep) N/A 09/14/17 13:01 Critical Value DM 09/14/17 13:01 Sodium 133 mEq/L (136-145) L 09/15/17 06:39 Potassium 5.1 mEq/L (3.5-5.1) 09/15/17 06:39 Chloride 98 mEq/L (98-107) 09/15/17 06:39 Carbon Dioxide 22.5 mEq/L (21.0-31.0) 09/15/17 06:39 Anion Gap 17.6 (7.0-16.0) H 09/15/17 06:39 BUN 115 mg/dL (7-25) H* 09/15/17 06:39 Creatinine 4.9 mg/dL (0.7-1.3) H* 09/15/17 06:39 Est GFR ( Amer) TNP 09/15/17 06:39 Est GFR (Non-Af Amer) TNP 09/15/17 06:39 BUN/Creatinine Ratio 23.5 09/15/17 06:39 Glucose 221 mg/dL (70-105) H 09/15/17 06:39 POC Glucose 251 MG/DL (70 - 105) H 09/15/17 12:26 Hemoglobin A1c % 6.5 % (4.0-6.0) H 09/15/17 06:35 Calcium 9.2 mg/dL (8.6-10.3) 09/15/17 06:39 Phosphorus 3.7 mg/dL (2.5-5.0) 09/15/17 06:39 Magnesium 2.7 mg/dL (1.9-2.7) 09/15/17 06:39 Total Bilirubin 0.6 mg/dL (0.3-1.0) 09/15/17 06:39 AST 20 U/L (13-39) 09/15/17 06:39 ALT 42 U/L (7-52) 09/15/17 06:39 Alkaline Phosphatase 238 U/L (34-104) H 09/15/17 06:39 B-Natriuretic Peptide 4140.0 pg/mL (5.0-100.0) H 09/14/17 14:30 Total Protein 6.3 gm/dL (6.0-8.3) 09/15/17 06:39 Albumin 2.3 gm/dL (4.2-5.5) L 09/15/17 06:39 Globulin 4.0 gm/dL 09/15/17 06:39 Albumin/Globulin Ratio 0.6 (1.0-1.8) L 09/15/17 06:39 Random Vancomycin 17.0 ug/mL (5.0-40.0) 09/14/17 14:30 - Physical Exam Vitals and I&O: Vital Signs Temp 97.4 F 09/15/17 12:00 Pulse 85 09/15/17 15:46 Resp 18 09/15/17 14:00 BP 103/54 09/15/17 14:00 Pulse Ox 100 09/15/17 15:46 Intake & Output 09/14/17 09/15/17 09/15/17 18:59 06:59 18:59 Intake Total 1073.333 126.667 Output Total 0 30 Balance 0 1043.333 126.667 Weight (lbs) 71.169 kg 71.214 kg 71.214 kg Intake: Intake, IV Amount 1073.333 126.667 D5-0.9%Ns 1,000 ml @ 80 873.333 126.667 mls/hr IV .[id number] [facility] Rx #:[id number] Meropenem 500 mg In 200 Sodium Chloride 0.9% 100 ml @ 100 mls/hr IV Q12H [facility] Rx#:[id number] Oral 0 Output: Urine 0 0 Other 30 Other: # Bowel Movements 0 0 Active Medications: Current Medications Acetaminophen (Tylenol) 650 mg PO Q4H PRN PRN Reason: Pain Or Fever above 101 Stop: 11/13/17 09:45 Acetaminophen/Hydrocodone Bitart ([place] 5mg/325mg) 1 tab PO Q4H PRN PRN Reason: Pain (Severe) Stop: 11/13/17 09:45 Acetaminophen/Hydrocodone Bitart ([place] 5mg/325mg) 1 tab GT Q6HR PRN PRN Reason: Pain (Mild) Stop: 11/13/17 11:00 Al Hydrox/Mg Hydrox/Simethicone (Maalox) 30 ml PO Q6H PRN PRN Reason: Dyspepsia Stop: 11/13/17 09:45 Albuterol Sulfate (Albuterol 2.5mg/3ml Neb Ud) 2.5 mg HHN Q2HRT PRN PRN Reason: Shortness of Breath or Wheeze Stop: 11/13/17 09:45 Albuterol Sulfate (Albuterol 2.5mg/3ml Neb Ud) 2.5 mg HHN QIDRT [facility] Stop: 11/13/17 14:59 Last Admin: 09/15/17 15:43 Dose: 2.5 mg Amlodipine Besylate (Norvasc) 5 mg GT DAILY [facility] Stop: 11/14/17 08:59 Last Admin: 09/15/17 10:14 Dose: Not Given Atropine Sulfate (Atropine) 1 mg IVP Q4HR PRN PRN Reason: BRADYCARDIA Stop: 11/13/17 11:00 Budesonide (Pulmicort) 0.5 mg HHN BIDRT [facility] Stop: 11/14/17 18:59 Chlorhexidine Gluconate (Peridex) 15 ml MM 0800,2000 [facility] Stop: 11/13/17 19:59 Last Admin: 09/15/17 09:55 Dose: 15 ml Famotidine (Pepcid) 20 mg IVP Q12H [facility] Stop: 11/14/17 08:59 Last Admin: 09/15/17 09:51 Dose: 20 mg Folic Acid (Folate) 1 mg GT DAILY [facility] Stop: 11/14/17 08:59 Last Admin: 09/15/17 09:52 Dose: 1 mg Hydrochlorothiazide (Hctz) 25 mg GT DAILY [facility] Stop: 11/14/17 08:59 Last Admin: 09/15/17 10:14 Dose: Not Given Meropenem 500 mg/ Sodium (Chloride) 100 mls @ 100 mls/hr IV Q12H [facility] Stop: 11/13/17 16:59 Last Infusion: 09/15/17 06:55 Dose: Infused Amikacin Sulfate 350 mg/ (Sodium Chloride) 101.4 mls @ 100 mls/hr IV 1800 [facility] Stop: 09/15/17 23:00 Vancomycin HCl 500 mg/ Sodium (Chloride) 100 mls @ 100 mls/hr IV 2000 [facility] Stop: 09/15/17 23:59 Dextrose/Sodium Chloride (D5-0.9%Ns) 1,000 mls @ 40 mls/hr IV .Q24H [facility] Stop: 11/13/17 09:59 Last Admin: 09/15/17 12:00 Dose: 40 mls/hr Insulin Aspart (Novolog) 0 units SUBQ ACHS [facility] PRN Reason: Protocol Stop: 11/13/17 11:29 Last Admin: 09/15/17 13:30 Dose: 4 units Ipratropium [place] (Atrovent Neb 0.5mg/2.5ml) 0.5 mg IH Q2HRT PRN PRN Reason: Shortness of Breath or Wheeze Stop: 11/13/17 09:45 Ipratropium [place] (Atrovent Neb 0.5mg/2.5ml) 0.5 mg IH QIDRT [facility] Stop: 11/13/17 14:59 Last Admin: 09/15/17 15:43 Dose: 0.5 mg Lactobacillus Rhamnosus (Culturelle) 1 each GT DAILY [facility] Stop: 11/13/17 12:59 Last Admin: 09/15/17 09:51 Dose: 1 each Lactulose (Cephulac) 10 gm GT Q12HR PRN PRN Reason: CONSTIPATION Losartan Potassium (Cozaar) 100 mg GT DAILY [facility] Stop: 11/14/17 08:59 Last Admin: 09/15/17 10:14 Dose: Not Given Metoclopramide HCl (Reglan) 10 mg IVP Q6HR PRN PRN Reason: Nausea / Vomiting Stop: 11/13/17 11:00 Metoprolol Tartrate (Lopressor) 50 mg GT BID [facility] Stop: 11/13/17 16:59 Last Admin: 09/15/17 10:14 Dose: Not Given Miscellaneous (Collagenase Clostridium Hist. [Collagenase]) 1 each MC DAILY [facility] Stop: 11/14/17 08:59 Miscellaneous (Vancomycin Iv Per Pharmacy) 1 ea PRN [facility] Stop: 11/13/17 13:29 Miscellaneous (Amikacin Iv Per Pharmacy) 1 ea PRN PRN PRN Reason: PROTOCOL Stop: 11/13/17 15:02 Morphine Sulfate (Morphine) 2 mg IVP Q4H PRN PRN Reason: Pain (Severe) Stop: 11/13/17 09:45 Morphine Sulfate (Morphine) 2 mg IVP Q6HR PRN PRN Reason: PAIN Multivitamins/Vitamin C (Theragran) 1 tab GT DAILY [facility] Stop: 11/14/17 08:59 Ondansetron HCl (Zofran) 4 mg IV Q8H PRN PRN Reason: Nausea / Vomiting Stop: 11/13/17 09:45 General: no acute distress, well developed, well nourished, cachectic HEENT: atraumatic, normocephalic, PERRLA, EOMI Neck: supple, no thyromegaly Cardiovascular: S1S2, regular Lungs: clear to auscultation bilaterally, clear to percussion Abdomen: soft, no tender, no distended Extremities: no cyanosis, no clubbing, no edema Neurological: awake, alert - Procedures Procedures: Procedures Procedure Code Date BYPASS ASCENDING COLON TO CUTANEOUS, OPEN APPROACH [id number] 09/14/17 COLOSTOMY 31397 09/14/17 [place] SUBQ TISSUE 20 SQ CM/< 81308 09/14/17 EXCISION OF BACK SUBCU/FASCIA, OPEN APPROACH [id number] 09/14/17 RESPIRATORY VENTILATION, 24-96 CONSECUTIVE HOURS [id number] 09/14/17 Nutritional Asmnt/Malnutr-PDOC - Dietary Evaluation Malnutrition Findings (Please click <Entered> for more info): Nutritional Asmnt/Malnutrition Start: 09/15/17 12: 18 Text: Status: Active Freq: Document 09/15/17 12:18 MMULADRIANA (Rec: 09/15/17 12:29 MMULADRIANA BLACK- [email or web address]) Nutritional Asmnt/Malnutrition Patient General Information Nutritional Screening High Risk Screening Diagnosis sacrum wound Subjective Information Per nursing notes, patient with multiple pressure wounds, 09/14 had surgery for diverting colostomy and wound vac appliaction. Patient remains intubated. Patient receives hemodialysis. G tube to low intermitent suction. Current Diet Order/ Nutrition Support NPO Patient / S.O Not Indicated Pertinent Medications maalox, D5-0.9% NS @ 80ml/hr, pepcid, folate, novolog, culturelle, lactulose, cozaar, reglan, vancomycin, theragran , zofran Pertinent Labs (09/15) Na 133, K 5.1, BUN 115 , Cr 4.9 (HD patient), Glucose 128-233, HGA1C 6.5, alkaline phosphatase 238, BNP 4140, albumin 2.3 Nutritional Hx/Data Height 1.98 m Height (Calculated Centimeters) 198.1 Current Weight (lbs) 71.214 kg Weight (Calculated Kilograms) 71.2 Weight (Calculated Grams) 17634.0 [place] Body Weight 214 % [place] Body Weight 73 Weight Status Underweight GI Symptoms Difficult in: Swallowing Food Allergies No Cultural/Ethnic/Holiness Belief Noen indicated Skin Integrity/Comment: [place] 11, decubitus ulcer on left hip, right heel, right thigh, sacrum Current %PO intubated Nutritional Problem 2. Problem Problem Altered nutrition related lab values related to Etiology renal dysfunction/ electrolyte imbalance aeb Signs/Symptoms: Na 133, K 5.1, BUN 115, Cr 4.9 (HD patient), Glucose 128-233 1. Problem Problem Increased nutrient needs related to Etiology impaired skin integrity/ hypermetabolic state aeb Signs/Symptoms: patient receives HD and has multiple decubitus ulcers, S/p wound vac application Intervention/Recommendation Comments 1. When medically appropriate, [facility] [place] [facility] [place] [facility] Expected Outcomes/Goals Expected Outcomes/Goals Patient receives nutrition within 48 hours, nutrition related labs normalize, weight remains stable or trends toward ideal body weight. F/U as HR 09/17-
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
[2017-09-15] MEDS: Budesonide 0.5 Mg/2 mL Ud HHN SCH (19:19)
[2017-09-15] MEDS ORDERED: Vancomycin HCl 500 MG in Sodium Chloride 0.9% 100 ML IV SCH (20:00)
[2017-09-15] MEDS: Morphine Sulfate 2 mg/mL 1mL Syr IVP PRN (22:05)
[2017-09-16 04:41] LABS: HEMATOCRIT 25.9 % (41.0-60); HEMOGLOBIN 8.5 gm/dL (12-16); MEAN CELL VOLUME 89.2 fl (80-99); MEAN CORPUSCULAR HEMOGLOBIN 29.1 pg (27.0-31.0); MEAN CORPUSCULAR HGB CONC 32.6 pg (28.0-36.0); MEAN PLATELET VOLUME 8.6 fl; PLATELET COUNT 257 Th/cmm (150-400); RED BLOOD COUNT 2.91 Mil/cmm (3.80-5.80); RED CELL DISTRIBUTION WIDTH 15.9 % (11.5-20.0)
[2017-09-16 04:54] LABS: WHITE BLOOD COUNT 28.9 Th/cmm (4.8-10.8)
[2017-09-16] MEDS: Meropenem 500 MG in Sodium Chloride 0.9% 100 ML IV SCH ×2 (04:56→17:37)
[2017-09-16 05:02] LABS: ALB/GLOB RATIO 0.6 (1.0-1.8); ALKALINE PHOSPHATASE 205 U/L (34-104); ANION GAP 13.6 (7.0-16.0); BILIRUBIN,TOTAL 0.6 mg/dL (0.3-1.0); BUN - UREA NITROGEN 78 mg/dL (7-25); BUN/CREATININE RATIO 20.5; CALCIUM SERUM 8.7 mg/dL (8.6-10.3); CARBON DIOXIDE 24.5 mEq/L (21.0-31.0); CHLORIDE 97 mEq/L (98-107); CREATININE - SERUM 3.8 mg/dL (0.7-1.3); GLUCOSE 174 mg/dL (70-105); MAGNESIUM 2.5 mg/dL (1.9-2.7); POTASSIUM SERUM 4.1 mEq/L (3.5-5.1); SGOT 18 U/L (13-39); SGPT/ALT 33 U/L (7-52); SODIUM SERUM 131 mEq/L (136-145)
[2017-09-16 05:20] LABS: NEUTROPHILS 83 % (40-80); TOTAL CELLS COUNTED 100
[2017-09-16 05:21] LABS: BAND NEUTROPHILE 7 % (0-10); BASOPHIL 0 % (0-3); EOSINOPHIL 0 % (0-5); PLATELET ESTIMATE ADEQUATE (NORMAL); PLATELET MORPHOLOGY NORMAL (NORMAL)
[2017-09-16] MEDS: INSULIN ASPART, RECOMBINANT 100 UNITS/ML SUBQ SCH ×4 (06:34→21:32)
[2017-09-16] MEDS: Ipratropium Neb 0.5 mg/2.5 mL UD IH SCH ×4 (07:45→18:53)
[2017-09-16] MEDS: Albuterol Nebulizer 2.5mg/3mL HHN SCH ×4 (07:45→18:53)
[2017-09-16] MEDS: Budesonide 0.5 Mg/2 mL Ud HHN SCH ×2 (07:45→18:53)
[2017-09-16 08:07] LABS: HEP B CORE IGM Negative (Negative); HEP C ANTIBODY 0.2 s/co ratio (0.0-0.9)
--- NOTE | 2017-09-16 08:12 | Diagnostic Imaging Report ---
Exam: Chest x-ray HISTORY: Shortness of breath. Findings: Frontal examination of chest was reviewed. The study compared to the prior exam 09/14/2017 Findings: The study again demonstrates tubes and lines unchanged position. Mediastinal structures midline. Multiple metallic sutures are noted status post transsternal thoracotomy. There is evidence of bilateral basilar peribronchial thickening with superimposed left pleural effusion. IMPRESSION: Unchanged upper prior examination 09/14/2017. Predominantly left basilar infiltrate superimposed effusion. Follow-up examination recommended.
[2017-09-16 08:21] LABS: ABG SOURCE Arterial; ALLEN TEST Positive; FIO2 40; HCO3 28.9 mEq/L (20.0-26.0); PS 10; pH 7.47 (7.35-7.45)
[2017-09-16] MEDS: Multivitamin Tab GT SCH (08:42)
[2017-09-16] MEDS: Venelex 60gm Tube TP SCH ×3 (08:47→19:44)
[2017-09-16] MEDS: Chlorhexidine Gluconate 0.12% 15mL Mouthwash MM SCH ×2 (08:48→20:26)
[2017-09-16] MEDS: Lactobacillus Rhamnosus 10 Billion CFU Capsule GT SCH (09:05)
--- NOTE | 2017-09-16 10:21 | General Progress Note ---
Subjective - Review of Systems Service Date: 09/16/17 Events since last encounter: none on cpap trial on vent Subjective: dialyzed yesterday, only 400mL removed due to low bp Objective - Results Result Diagrams: 09/16/17 04:27 09/16/17 04:27 Recent Labs: Laboratory Last Values WBC 28.9 Th/cmm (4.8-10.8) H* 09/16/17 04:27 RBC 2.91 Mil/cmm (3.80-5.80) L 09/16/17 04:27 Hgb 8.5 gm/dL (12-16) L 09/16/17 04:27 Hct 25.9 % (41.0-60) L 09/16/17 04:27 MCV 89.2 fl (80-99) 09/16/17 04:27 MCH 29.1 pg (27.0-31.0) 09/16/17 04:27 MCHC Differential 32.6 pg (28.0-36.0) 09/16/17 04:27 RDW 15.9 % (11.5-20.0) 09/16/17 04:27 Plt Count 257 Th/cmm (150-400) 09/16/17 04:27 MPV 8.6 fl 09/16/17 04:27 Band Neutrophils % 7 % (0-10) 09/16/17 04:27 Neutrophils (Manual) 83 % (40-80) H 09/16/17 04:27 Lymphocytes 5 % (20-50) L 09/16/17 04:27 Monocytes 5 % (2-10) 09/16/17 04:27 Eosinophils 0 % (0-5) 09/16/17 04:27 Basophils 0 % (0-3) 09/16/17 04:27 Platelet Estimate ADEQUATE (NORMAL) 09/16/17 04:27 Platelet Morphology NORMAL (NORMAL) 09/16/17 04:27 Anisocytosis 1+ 09/15/17 06:39 RBC Morph Micro Appear NORMAL (NORMAL) 09/16/17 04:27 Specimen Source Arterial 09/16/17 08:10 Sample Site Right Radial 09/16/17 08:10 pH 7.47 (7.35-7.45) H 09/16/17 08:10 pCO2 40.0 mmHg (35.0-45.0) 09/16/17 08:10 pO2 162.0 mmHg (80.0-100.0) H 09/16/17 08:10 HCO3 28.9 mEq/L (20.0-26.0) H 09/16/17 08:10 Base Excess 5.0 mEq/L (-3.0-3.0) H 09/16/17 08:10 O2 Saturation 100.0 % (92.0-100.0) 09/16/17 08:10 Willi Test Positive 09/16/17 08:10 Vent Rate NA 09/16/17 08:10 Inspired O2 40 09/16/17 08:10 Tidal Volume NA 09/16/17 08:10 PEEP 5 09/16/17 08:10 Pressure (ins/psv/peep) 10 09/16/17 08:10 Critical Value LZHANG 09/16/17 08:10 Sodium 131 mEq/L (136-145) L 09/16/17 04:27 Potassium 4.1 mEq/L (3.5-5.1) 09/16/17 04:27 Chloride 97 mEq/L (98-107) L 09/16/17 04:27 Carbon Dioxide 24.5 mEq/L (21.0-31.0) 09/16/17 04:27 Anion Gap 13.6 (7.0-16.0) 09/16/17 04:27 BUN 78 mg/dL (7-25) H 09/16/17 04:27 Creatinine 3.8 mg/dL (0.7-1.3) H 09/16/17 04:27 Est GFR ( Amer) TNP 09/16/17 04:27 Est GFR (Non-Af Amer) TNP 09/16/17 04:27 BUN/Creatinine Ratio 20.5 09/16/17 04:27 Glucose 174 mg/dL (70-105) H 09/16/17 04:27 POC Glucose 155 MG/DL (70 - 105) H 09/15/17 21:15 Hemoglobin A1c % 6.5 % (4.0-6.0) H 09/15/17 06:35 Calcium 8.7 mg/dL (8.6-10.3) 09/16/17 04:27 Phosphorus 3.7 mg/dL (2.5-5.0) 09/15/17 06:39 Magnesium 2.5 mg/dL (1.9-2.7) 09/16/17 04:27 Total Bilirubin 0.6 mg/dL (0.3-1.0) 09/16/17 04:27 AST 18 U/L (13-39) 09/16/17 04:27 ALT 33 U/L (7-52) 09/16/17 04:27 Alkaline Phosphatase 205 U/L (34-104) H 09/16/17 04:27 Ammonia 40 umol/L (16-53) 09/16/17 04:27 B-Natriuretic Peptide 1400.0 pg/mL (5.0-100.0) H 09/16/17 04:27 Total Protein 6.2 gm/dL (6.0-8.3) 09/16/17 04:27 Albumin 2.2 gm/dL (4.2-5.5) L 09/16/17 04:27 Globulin 4.0 gm/dL 09/16/17 04:27 Albumin/Globulin Ratio 0.6 (1.0-1.8) L 09/16/17 04:27 Random Vancomycin 21.6 ug/mL (5.0-40.0) 09/15/17 16:54 Hepatitis A IgM Ab Negative (Negative) 09/15/17 13:00 Hep Bs Antigen Negative (Negative) 09/15/17 13:00 Hep B Core IgM Ab Negative (Negative) 09/15/17 13:00 Hepatitis C Antibody 0.2 s/co ratio (0.0-0.9) 09/15/17 13:00 - Physical Exam Vitals and I&O: Vital Signs Temp 98.5 F 09/16/17 04:00 Pulse 80 09/16/17 08:42 Resp 16 09/16/17 06:00 BP 120/75 09/16/17 08:43 Pulse Ox 100 09/16/17 07:50 Intake & Output 09/15/17 09/16/17 09/16/17 18:59 06:59 18:59 Intake Total 824.703 1237.4 Output Total 400 50 Balance -406.239 0443.4 Weight (lbs) 71.214 kg 73.482 kg Intake: Intake, IV Amount 846.478 8339.4 Amikacin 350 mg In Sodium 101.4 Chloride 0.9% 100 ml @ 100 mls/hr IV 1800 [facility] Rx #:[id number] D5-0.9%Ns 1,000 ml @ 40 720 mls/hr IV .Q24H [facility] Rx#: [id number] D5-0.9%Ns 1,000 ml @ 80 126.667 mls/hr IV .[id number] [facility] Rx #:[id number] Meropenem 500 mg In 200 Sodium Chloride 0.9% 100 ml @ 100 mls/hr IV Q12H [facility] Rx#:[id number] Vancomycin HCl 500 mg In 100 Sodium Chloride 0.9% 100 ml @ 100 mls/hr IV 2000 [facility] Rx#:[id number] Tube Feeding 240 Other 100 Output: Urine 0 Hemodialysis 400 Other 50 Active Medications: Current Medications Acetaminophen (Tylenol) 650 mg PO Q4H PRN PRN Reason: Pain Or Fever above 101 Stop: 11/13/17 09:45 Acetaminophen/Hydrocodone Bitart ([place] 5mg/325mg) 1 tab PO Q4H PRN PRN Reason: Pain (Severe) Stop: 11/13/17 09:45 Acetaminophen/Hydrocodone Bitart ([place] 5mg/325mg) 1 tab GT Q6HR PRN PRN Reason: Pain (Mild) Stop: 11/13/17 11:00 Al Hydrox/Mg Hydrox/Simethicone (Maalox) 30 ml PO Q6H PRN PRN Reason: Dyspepsia Stop: 11/13/17 09:45 Albuterol Sulfate (Albuterol 2.5mg/3ml Neb Ud) 2.5 mg HHN Q2HRT PRN PRN Reason: Shortness of Breath or Wheeze Stop: 11/13/17 09:45 Albuterol Sulfate (Albuterol 2.5mg/3ml Neb Ud) 2.5 mg HHN QIDRT [facility] Stop: 11/13/17 14:59 Last Admin: 09/16/17 07:45 Dose: 2.5 mg Amlodipine Besylate (Norvasc) 5 mg GT DAILY [facility] Stop: 11/14/17 08:59 Last Admin: 09/16/17 08:39 Dose: 5 mg Atropine Sulfate (Atropine) 1 mg IVP Q4HR PRN PRN Reason: BRADYCARDIA Stop: 11/13/17 11:00 Budesonide (Pulmicort) 0.5 mg HHN BIDRT [facility] Stop: 11/14/17 18:59 Last Admin: 09/16/17 07:45 Dose: 0.5 mg Chlorhexidine Gluconate (Peridex) 15 ml MM 0800,1999 [facility] Stop: 11/13/17 19:59 Last Admin: 09/16/17 08:48 Dose: 15 ml Famotidine (Pepcid) 20 mg IVP Q12H [facility] Stop: 11/14/17 08:59 Last Admin: 09/16/17 08:40 Dose: 20 mg Folic Acid (Folate) 1 mg GT DAILY [facility] Stop: 11/14/17 08:59 Last Admin: 09/16/17 08:42 Dose: 1 mg Heparin Sodium (Porcine) (Heparin) 5,000 units SUBQ Q12HR [facility] Stop: 11/14/17 20:59 Last Admin: 09/16/17 08:42 Dose: 5,000 units Hydrochlorothiazide (Hctz) 25 mg GT DAILY [facility] Stop: 11/14/17 08:59 Last Admin: 09/16/17 08:43 Dose: 25 mg Meropenem 500 mg/ Sodium (Chloride) 100 mls @ 100 mls/hr IV Q12H [facility] Stop: 11/13/17 16:59 Last Infusion: 09/16/17 05:56 Dose: Infused Dextrose/Sodium Chloride (D5-0.9%Ns) 1,000 mls @ 40 mls/hr IV .Q24H [facility] Stop: 11/13/17 09:59 Last Infusion: 09/16/17 06:00 Dose: 40 mls/hr Insulin Aspart (Novolog) 0 units SUBQ ACHS [facility] PRN Reason: Protocol Stop: 11/13/17 11:29 Last Admin: 09/16/17 06:34 Dose: Not Given Ipratropium [place] (Atrovent Neb 0.5mg/2.5ml) 0.5 mg IH Q2HRT PRN PRN Reason: Shortness of Breath or Wheeze Stop: 11/13/17 09:45 Ipratropium [place] (Atrovent Neb 0.5mg/2.5ml) 0.5 mg IH QIDRT [facility] Stop: 11/13/17 14:59 Last Admin: 09/16/17 07:45 Dose: 0.5 mg Lactobacillus Rhamnosus (Culturelle) 1 each GT DAILY [facility] Stop: 11/13/17 12:59 Last Admin: 09/16/17 09:05 Dose: 1 each Lactulose (Cephulac) 10 gm GT Q12HR PRN PRN Reason: CONSTIPATION Losartan Potassium (Cozaar) 100 mg GT DAILY [facility] Stop: 11/14/17 08:59 Last Admin: 09/16/17 08:41 Dose: 100 mg Metoclopramide HCl (Reglan) 10 mg IVP Q6HR PRN PRN Reason: Nausea / Vomiting Stop: 11/13/17 11:00 Metoprolol Tartrate (Lopressor) 50 mg GT BID [facility] Stop: 11/13/17 16:59 Last Admin: 09/16/17 08:42 Dose: 50 mg Miscellaneous (Collagenase Clostridium Hist. [Collagenase]) 1 each MC DAILY [facility] Stop: 11/14/17 08:59 Miscellaneous (Vancomycin Iv Per Pharmacy) 1 ea MC PRN [facility] Stop: 11/13/17 13:29 Miscellaneous (Amikacin Iv Per Pharmacy) 1 ea [facility] PRN PRN PRN Reason: PROTOCOL Stop: 11/13/17 15:02 Morphine Sulfate (Morphine) 2 mg IVP Q4H PRN PRN Reason: Pain (Severe) Stop: 11/13/17 09:45 Last Admin: 09/15/17 22:05 Dose: 2 mg Morphine Sulfate (Morphine) 2 mg IVP Q6HR PRN PRN Reason: PAIN Multivitamins/Vitamin C (Theragran) 1 tab GT DAILY [facility] Stop: 11/14/17 08:59 Last Admin: 09/16/17 08:42 Dose: 1 tab Ondansetron HCl (Zofran) 4 mg IV Q8H PRN PRN Reason: Nausea / Vomiting Stop: 11/13/17 09:45 Last Admin: 09/15/17 23:38 Dose: 4 mg Physical Exam: arousable nad head nc/at sclerae anicteric neck in cervical collar cv rrr lungs cta b abd soft ntn+colostomy ext no edema - Procedures Procedures: Procedures Procedure Code Date BYPASS ASCENDING COLON TO CUTANEOUS, OPEN APPROACH [id number] 09/14/17 COLOSTOMY 24055 09/14/17 [place] SUBQ TISSUE 20 SQ CM/< 71402 09/14/17 EXCISION OF BACK SUBCU/FASCIA, OPEN APPROACH [id number] 09/14/17 RESPIRATORY VENTILATION, 24-96 CONSECUTIVE HOURS [id number] 09/14/17 Assessment/Plan - Assessment Assessment: esrd/dialysis status anemia with esrd sacral wound s/p excisional debridement diverting colostomy status new htn w [facility] pna - Plan Plan: will plan for dialysis in am cont abx cont postopcare wean vent\\ epogen Nutritional Asmnt/Malnutr-PDOC - Dietary Evaluation Malnutrition Findings (Please click <Entered> for more info): Nutritional Asmnt/Malnutrition Start: 09/15/17 12: 18 Text: Status: Complete Freq: Document 09/15/17 12:18 MMULHERN (Rec: 09/15/17 12:29 MMULHERN WAYNE- FN) Nutritional Asmnt/Malnutrition Patient General Information Nutritional Screening High Risk Screening Diagnosis sacrum wound Pertinent Medical Hx/Surgical Hx ESRD on HD, CAD, hyperlipidemia, type 2 diabetes, dementia, atrial flutter, CHF, peripheral arterial disease, Clostridium difficile colitis, cervical 2- 3 fracture and contusion, small hematoma in the cervical . Subjective Information Per nursing notes, patient with multiple pressure wounds, 09/14 had surgery for diverting colostomy and wound vac appliaction. Patient remains intubated. Patient receiving hemodialysis at time of visit. G tube to low intermitent suction. Noted that patient is likely not 6'6 " tall as noted in chart. Patient appears smaller, maybe 66". Patient with severeal temporal wasting. Current Diet Order/ Nutrition Support NPO Patient / S.O Not Indicated Pertinent Medications maalox, D5-0.9% NS @ 80ml/hr, pepcid, folate, novolog, culturelle, lactulose, cozaar, reglan, vancomycin, theragran , zofran Pertinent Labs (09/15) Na 133, K 5.1, BUN 115 , Cr 4.9 (HD patient), Glucose 128-233, HGA1C 6.5, alkaline phosphatase 238, BNP 4140, albumin 2.3 Nutritional Hx/Data Height 1.68 m Height (Calculated Centimeters) 167.6 Current Weight (lbs) 71.214 kg Weight (Calculated Kilograms) 71.2 Weight (Calculated Grams) 07114.0 [place] Body Weight 142 % [place] Body Weight 110 Weight Status Underweight GI Symptoms Difficult in: Swallowing Food Allergies No Cultural/Ethnic/Christianity Belief None indicated Usual diet at home unknown Skin Integrity/Comment: Cali 11, decubitus ulcer on left hip, right heel, right thigh, sacrum Current %PO intubated Estimated Nutritional Goals BEE in Kcals: Adj wt of IBW Calories/Kcals/Kg [place] body weight 64.5kg Kcals Calculated 4803-1864 kcal/day (25-30 kcal /kg) - intubated, HD, wounds Protein: Adj wt of IBW Protein g/kg: (1.5-2 gm/kg) - HD, wounds, I& D/wound vac Protein Calculated 95-130 gm/day Fluid: ml Per MD Dialysis Nutritional Problem 2. Problem Problem Altered nutrition related lab values related to Etiology renal dysfunction/ electrolyte imbalance aeb Signs/Symptoms: Na 133, K 5.1, BUN 115, Cr 4.9 (HD patient), Glucose 128-233 1. Problem Problem Increased nutrient needs related to Etiology impaired skin integrity/ hypermetabolic state aeb Signs/Symptoms: patient receives HD and has multiple decubitus ulcers, S/p wound vac application Intervention/Recommendation Comments 1. When medically appropriate, start tube feeding Novasource Renal with goal rate 40 ml/hr . This provides 960 ml volume, 1920 kcal, 87gm protein, 688 ml free water. Add Prosource 1 packet/day for an additional 15gm protein (102 gm/day total ). Expected Outcomes/Goals Expected Outcomes/Goals Patient receives nutrition within 48 hours, nutrition related labs normalize, weight remains stable or trends toward ideal body weight. F/U as HR 09/17-
--- NOTE | 2017-09-16 10:21 | General Progress Note ---
Subjective - Review of Systems Service Date: 09/16/17 Events since last encounter: will need debridement of right hip ulcer prior to DC to [facility] tomorrow not answering phone this AM Objective - Results Result Diagrams: 09/16/17 04:27 09/16/17 04:27 Recent Labs: Laboratory Last Values WBC 28.9 Th/cmm (4.8-10.8) H* 09/16/17 04:27 RBC 2.91 Mil/cmm (3.80-5.80) L 09/16/17 04:27 Hgb 8.5 gm/dL (12-16) L 09/16/17 04:27 Hct 25.9 % (41.0-60) L 09/16/17 04:27 MCV 89.2 fl (80-99) 09/16/17 04:27 MCH 29.1 pg (27.0-31.0) 09/16/17 04:27 MCHC Differential 32.6 pg (28.0-36.0) 09/16/17 04:27 RDW 15.9 % (11.5-20.0) 09/16/17 04:27 Plt Count 257 Th/cmm (150-400) 09/16/17 04:27 MPV 8.6 fl 09/16/17 04:27 Band Neutrophils % 7 % (0-10) 09/16/17 04:27 Neutrophils (Manual) 83 % (40-80) H 09/16/17 04:27 Lymphocytes 5 % (20-50) L 09/16/17 04:27 Monocytes 5 % (2-10) 09/16/17 04:27 Eosinophils 0 % (0-5) 09/16/17 04:27 Basophils 0 % (0-3) 09/16/17 04:27 Platelet Estimate ADEQUATE (NORMAL) 09/16/17 04:27 Platelet Morphology NORMAL (NORMAL) 09/16/17 04:27 Anisocytosis 1+ 09/15/17 06:39 RBC Morph Micro Appear NORMAL (NORMAL) 09/16/17 04:27 Specimen Source Arterial 09/16/17 08:10 Sample Site Right Radial 09/16/17 08:10 pH 7.47 (7.35-7.45) H 09/16/17 08:10 pCO2 40.0 mmHg (35.0-45.0) 09/16/17 08:10 pO2 162.0 mmHg (80.0-100.0) H 09/16/17 08:10 HCO3 28.9 mEq/L (20.0-26.0) H 09/16/17 08:10 Base Excess 5.0 mEq/L (-3.0-3.0) H 09/16/17 08:10 O2 Saturation 100.0 % (92.0-100.0) 09/16/17 08:10 Willi Test Positive 09/16/17 08:10 Vent Rate NA 09/16/17 08:10 Inspired O2 40 09/16/17 08:10 Tidal Volume NA 09/16/17 08:10 PEEP 5 09/16/17 08:10 Pressure (ins/psv/peep) 10 09/16/17 08:10 Critical Value LZHANG 09/16/17 08:10 Sodium 131 mEq/L (136-145) L 09/16/17 04:27 Potassium 4.1 mEq/L (3.5-5.1) 09/16/17 04:27 Chloride 97 mEq/L (98-107) L 09/16/17 04:27 Carbon Dioxide 24.5 mEq/L (21.0-31.0) 09/16/17 04:27 Anion Gap 13.6 (7.0-16.0) 09/16/17 04:27 BUN 78 mg/dL (7-25) H 09/16/17 04:27 Creatinine 3.8 mg/dL (0.7-1.3) H 09/16/17 04:27 Est GFR ( Amer) TNP 09/16/17 04:27 Est GFR (Non-Af Amer) TNP 09/16/17 04:27 BUN/Creatinine Ratio 20.5 09/16/17 04:27 Glucose 174 mg/dL (70-105) H 09/16/17 04:27 POC Glucose 155 MG/DL (70 - 105) H 09/15/17 21:15 Hemoglobin A1c % 6.5 % (4.0-6.0) H 09/15/17 06:35 Calcium 8.7 mg/dL (8.6-10.3) 09/16/17 04:27 Phosphorus 3.7 mg/dL (2.5-5.0) 09/15/17 06:39 Magnesium 2.5 mg/dL (1.9-2.7) 09/16/17 04:27 Total Bilirubin 0.6 mg/dL (0.3-1.0) 09/16/17 04:27 AST 18 U/L (13-39) 09/16/17 04:27 ALT 33 U/L (7-52) 09/16/17 04:27 Alkaline Phosphatase 205 U/L (34-104) H 09/16/17 04:27 Ammonia 40 umol/L (16-53) 09/16/17 04:27 B-Natriuretic Peptide 1400.0 pg/mL (5.0-100.0) H 09/16/17 04:27 Total Protein 6.2 gm/dL (6.0-8.3) 09/16/17 04:27 Albumin 2.2 gm/dL (4.2-5.5) L 09/16/17 04:27 Globulin 4.0 gm/dL 09/16/17 04:27 Albumin/Globulin Ratio 0.6 (1.0-1.8) L 09/16/17 04:27 Random Vancomycin 21.6 ug/mL (5.0-40.0) 09/15/17 16:54 Hepatitis A IgM Ab Negative (Negative) 09/15/17 13:00 Hep Bs Antigen Negative (Negative) 09/15/17 13:00 Hep B Core IgM Ab Negative (Negative) 09/15/17 13:00 Hepatitis C Antibody 0.2 s/co ratio (0.0-0.9) 09/15/17 13:00 - Physical Exam Vitals and I&O: Vital Signs Temp 98.5 F 09/16/17 04:00 Pulse 80 09/16/17 08:42 Resp 16 09/16/17 06:00 BP 120/75 09/16/17 08:43 Pulse Ox 100 09/16/17 07:50 Intake & Output 09/15/17 09/16/17 09/16/17 18:59 06:59 18:59 Intake Total 700.694 1713.4 Output Total 400 50 Balance -728.123 2358.4 Weight (lbs) 71.214 kg 73.482 kg Intake: Intake, IV Amount 121.415 4852.4 Amikacin 350 mg In Sodium 101.4 Chloride 0.9% 100 ml @ 100 mls/hr IV 1800 [facility] Rx #:[id number] D5-0.9%Ns 1,000 ml @ 40 720 mls/hr IV .Q24H [facility] Rx#: [id number] D5-0.9%Ns 1,000 ml @ 80 126.667 mls/hr IV .[id number] [facility] Rx #:[id number] Meropenem 500 mg In 200 Sodium Chloride 0.9% 100 ml @ 100 mls/hr IV Q12H [facility] Rx#:[id number] Vancomycin HCl 500 mg In 100 Sodium Chloride 0.9% 100 ml @ 100 mls/hr IV 2000 [facility] Rx#:[id number] Tube Feeding 240 Other 100 Output: Urine 0 Hemodialysis 400 Other 50 Active Medications: Current Medications Acetaminophen (Tylenol) 650 mg PO Q4H PRN PRN Reason: Pain Or Fever above 101 Stop: 11/13/17 09:45 Acetaminophen/Hydrocodone Bitart ([place] 5mg/325mg) 1 tab PO Q4H PRN PRN Reason: Pain (Severe) Stop: 11/13/17 09:45 Acetaminophen/Hydrocodone Bitart ([place] 5mg/325mg) 1 tab GT Q6HR PRN PRN Reason: Pain (Mild) Stop: 11/13/17 11:00 Al Hydrox/Mg Hydrox/Simethicone (Maalox) 30 ml PO Q6H PRN PRN Reason: Dyspepsia Stop: 11/13/17 09:45 Albuterol Sulfate (Albuterol 2.5mg/3ml Neb Ud) 2.5 mg HHN Q2HRT PRN PRN Reason: Shortness of Breath or Wheeze Stop: 11/13/17 09:45 Albuterol Sulfate (Albuterol 2.5mg/3ml Neb Ud) 2.5 mg HHN QIDRT [facility] Stop: 11/13/17 14:59 Last Admin: 09/16/17 07:45 Dose: 2.5 mg Amlodipine Besylate (Norvasc) 5 mg GT DAILY [facility] Stop: 11/14/17 08:59 Last Admin: 09/16/17 08:39 Dose: 5 mg Atropine Sulfate (Atropine) 1 mg IVP Q4HR PRN PRN Reason: BRADYCARDIA Stop: 11/13/17 11:00 Budesonide (Pulmicort) 0.5 mg HHN BIDRT [facility] Stop: 11/14/17 18:59 Last Admin: 09/16/17 07:45 Dose: 0.5 mg Chlorhexidine Gluconate (Peridex) 15 ml MM 0800,1999 [facility] Stop: 11/13/17 19:59 Last Admin: 09/16/17 08:48 Dose: 15 ml Famotidine (Pepcid) 20 mg IVP Q12H [facility] Stop: 11/14/17 08:59 Last Admin: 09/16/17 08:40 Dose: 20 mg Folic Acid (Folate) 1 mg GT DAILY [facility] Stop: 11/14/17 08:59 Last Admin: 09/16/17 08:42 Dose: 1 mg Heparin Sodium (Porcine) (Heparin) 5,000 units SUBQ Q12HR [facility] Stop: 11/14/17 20:59 Last Admin: 09/16/17 08:42 Dose: 5,000 units Hydrochlorothiazide (Hctz) 25 mg GT DAILY [facility] Stop: 11/14/17 08:59 Last Admin: 09/16/17 08:43 Dose: 25 mg Meropenem 500 mg/ Sodium (Chloride) 100 mls @ 100 mls/hr IV Q12H [facility] Stop: 11/13/17 16:59 Last Infusion: 09/16/17 05:56 Dose: Infused Dextrose/Sodium Chloride (D5-0.9%Ns) 1,000 mls @ 40 mls/hr IV .Q24H [facility] Stop: 11/13/17 09:59 Last Infusion: 09/16/17 06:00 Dose: 40 mls/hr Insulin Aspart (Novolog) 0 units SUBQ ACHS [facility] PRN Reason: Protocol Stop: 11/13/17 11:29 Last Admin: 09/16/17 06:34 Dose: Not Given Ipratropium [place] (Atrovent Neb 0.5mg/2.5ml) 0.5 mg IH Q2HRT PRN PRN Reason: Shortness of Breath or Wheeze Stop: 11/13/17 09:45 Ipratropium [place] (Atrovent Neb 0.5mg/2.5ml) 0.5 mg IH QIDRT [facility] Stop: 11/13/17 14:59 Last Admin: 09/16/17 07:45 Dose: 0.5 mg Lactobacillus Rhamnosus (Culturelle) 1 each GT DAILY [facility] Stop: 11/13/17 12:59 Last Admin: 09/16/17 09:05 Dose: 1 each Lactulose (Cephulac) 10 gm GT Q12HR PRN PRN Reason: CONSTIPATION Losartan Potassium (Cozaar) 100 mg GT DAILY [facility] Stop: 11/14/17 08:59 Last Admin: 09/16/17 08:41 Dose: 100 mg Metoclopramide HCl (Reglan) 10 mg IVP Q6HR PRN PRN Reason: Nausea / Vomiting Stop: 11/13/17 11:00 Metoprolol Tartrate (Lopressor) 50 mg GT BID [facility] Stop: 11/13/17 16:59 Last Admin: 09/16/17 08:42 Dose: 50 mg Miscellaneous (Collagenase Clostridium Hist. [Collagenase]) 1 each MC DAILY [facility] Stop: 11/14/17 08:59 Miscellaneous (Vancomycin Iv Per Pharmacy) 1 ea PRN [facility] Stop: 11/13/17 13:29 Miscellaneous (Amikacin Iv Per Pharmacy) 1 ea PRN PRN PRN Reason: PROTOCOL Stop: 11/13/17 15:02 Morphine Sulfate (Morphine) 2 mg IVP Q4H PRN PRN Reason: Pain (Severe) Stop: 11/13/17 09:45 Last Admin: 09/15/17 22:05 Dose: 2 mg Morphine Sulfate (Morphine) 2 mg IVP Q6HR PRN PRN Reason: PAIN Multivitamins/Vitamin C (Theragran) 1 tab GT DAILY [facility] Stop: 11/14/17 08:59 Last Admin: 09/16/17 08:42 Dose: 1 tab Ondansetron HCl (Zofran) 4 mg IV Q8H PRN PRN Reason: Nausea / Vomiting Stop: 11/13/17 09:45 Last Admin: 09/15/17 23:38 Dose: 4 mg - Procedures Procedures: Procedures Procedure Code Date BYPASS ASCENDING COLON TO CUTANEOUS, OPEN APPROACH [id number] 09/14/17 COLOSTOMY 08011 09/14/17 [place] SUBQ TISSUE 20 SQ CM/< 52490 09/14/17 EXCISION OF BACK SUBCU/FASCIA, OPEN APPROACH [id number] 09/14/17 RESPIRATORY VENTILATION, 24-96 CONSECUTIVE HOURS [id number] 09/14/17 Nutritional Asmnt/Malnutr-PDOC - Dietary Evaluation Malnutrition Findings (Please click <Entered> for more info): Nutritional Asmnt/Malnutrition Start: 09/15/17 12: 18 Text: Status: Complete Freq: Document 09/15/17 12:18 MMULN (Rec: 09/15/17 12:29 MMULHERN [email or web address]- [email or web address]) Nutritional Asmnt/Malnutrition Patient General Information Nutritional Screening High Risk Screening Diagnosis sacrum wound Pertinent Medical Hx/Surgical Hx ESRD on HD, CAD, hyperlipidemia, type 2 diabetes, dementia, atrial flutter, CHF, peripheral arterial disease, Clostridium difficile colitis, cervical 2- 3 fracture and contusion, small hematoma in the cervical . Subjective Information Per nursing notes, patient with multiple pressure wounds, 09/14 had surgery for diverting colostomy and wound vac appliaction. Patient remains intubated. Patient receiving hemodialysis at time of visit. G tube to low intermitent suction. Noted that patient is likely not 6'6 " tall as noted in chart. Patient appears smaller, maybe 66". Patient with severeal temporal wasting. Current Diet Order/ Nutrition Support NPO Patient / S.O Not Indicated Pertinent Medications maalox, D5-0.9% NS @ 80ml/hr, pepcid, folate, novolog, culturelle, lactulose, cozaar, reglan, vancomycin, theragran , zofran Pertinent Labs (09/15) Na 133, K 5.1, BUN 115 , Cr 4.9 (HD patient), Glucose 128-233, HGA1C 6.5, alkaline phosphatase 238, BNP 4140, albumin 2.3 Nutritional Hx/Data Height 1.68 m Height (Calculated Centimeters) 167.6 Current Weight (lbs) 71.214 kg Weight (Calculated Kilograms) 71.2 Weight (Calculated Grams) 82585.0 [place] Body Weight 142 % [place] Body Weight 110 Weight Status Underweight GI Symptoms Difficult in: Swallowing Food Allergies No Cultural/Ethnic/[place] Belief None indicated Usual diet at home unknown Skin Integrity/Comment: Cali 11, decubitus ulcer on left hip, right heel, right thigh, sacrum Current %PO intubated Estimated Nutritional Goals BEE in Kcals: Adj wt of IBW Calories/Kcals/Kg [place] body weight 64.5kg Kcals Calculated 5777-6338 kcal/day (25-30 kcal /kg) - intubated, HD, wounds Protein: Adj wt of IBW Protein g/kg: (1.5-2 gm/kg) - HD, wounds, I& D/wound vac Protein Calculated 95-130 gm/day Fluid: ml Per MD Dialysis Nutritional Problem 2. Problem Problem Altered nutrition related lab values related to Etiology renal dysfunction/ electrolyte imbalance aeb Signs/Symptoms: Na 133, K 5.1, BUN 115, Cr 4.9 (HD patient), Glucose 128-233 1. Problem Problem Increased nutrient needs related to Etiology impaired skin integrity/ hypermetabolic state aeb Signs/Symptoms: patient receives HD and has multiple decubitus ulcers, S/p wound vac application Intervention/Recommendation Comments 1. When medically appropriate, start tube feeding Novasource Renal with goal rate 40 ml/hr . This provides 960 ml volume, 1920 kcal, 87gm protein, 688 ml free water. Add Prosource 1 packet/day for an additional 15gm protein (102 gm/day total ). Expected Outcomes/Goals Expected Outcomes/Goals Patient receives nutrition within 48 hours, nutrition related labs normalize, weight remains stable or trends toward ideal body weight. F/U as HR 09/17-
[2017-09-16] MEDS ORDERED: Probiotic Screen MC PRN (11:36)
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
[2017-09-16] MEDS: D5-0.9%NS 1,000 ML IV SCH (17:42)
[2017-09-17] MEDS ORDERED: Albumin 25% 12.5gm/50mL 12.5 GM/50 ML BTL IV PRN
[2017-09-17] MEDS: Meropenem 500 MG in Sodium Chloride 0.9% 100 ML IV SCH ×2 (04:53→16:04)
[2017-09-17 06:12] LABS: HEMATOCRIT 25.8 % (41.0-60); HEMOGLOBIN 8.6 gm/dL (12-16); MEAN CELL VOLUME 89.1 fl (80-99); MEAN CORPUSCULAR HEMOGLOBIN 29.5 pg (27.0-31.0); MEAN CORPUSCULAR HGB CONC 33.1 pg (28.0-36.0); MEAN PLATELET VOLUME 8.2 fl; PLATELET COUNT 296 Th/cmm (150-400); RED CELL DISTRIBUTION WIDTH 15.3 % (11.5-20.0)
[2017-09-17 06:22] LABS: ALB/GLOB RATIO 0.6 (1.0-1.8); ALKALINE PHOSPHATASE 215 U/L (34-104); ANION GAP 12.6 (7.0-16.0); BILIRUBIN,TOTAL 0.5 mg/dL (0.3-1.0); BUN/CREATININE RATIO 19.6; CALCIUM SERUM 8.3 mg/dL (8.6-10.3); CARBON DIOXIDE 25.7 mEq/L (21.0-31.0); CHLORIDE 98 mEq/L (98-107); GLUCOSE 199 mg/dL (70-105); POTASSIUM SERUM 4.3 mEq/L (3.5-5.1); SGOT 17 U/L (13-39); SGPT/ALT 31 U/L (7-52); SODIUM SERUM 132 mEq/L (136-145)
[2017-09-17] MEDS: Albuterol Nebulizer 2.5mg/3mL HHN SCH ×4 (06:30→18:49)
[2017-09-17] MEDS: Ipratropium Neb 0.5 mg/2.5 mL UD IH SCH ×4 (06:30→18:49)
[2017-09-17] MEDS: Budesonide 0.5 Mg/2 mL Ud HHN SCH ×2 (06:30→19:14)
[2017-09-17 06:44] LABS: WHITE BLOOD COUNT 20.2 Th/cmm (4.8-10.8)
[2017-09-17 06:57] LABS: BUN - UREA NITROGEN 88 mg/dL (7-25); CREATININE - SERUM 4.5 mg/dL (0.7-1.3)
[2017-09-17] MEDS: INSULIN ASPART, RECOMBINANT 100 UNITS/ML SUBQ SCH ×3 (07:08→16:56)
[2017-09-17 07:55] LABS: BAND NEUTROPHILE 4 % (0-10); BASOPHIL 0 % (0-3); EOSINOPHIL 2 % (0-5); NEUTROPHILS 89 % (40-80); PLATELET ESTIMATE ADEQUATE (NORMAL); PLATELET MORPHOLOGY NORMAL (NORMAL); TOTAL CELLS COUNTED 100
[2017-09-17] MEDS ORDERED: Midazolam 1mg/ml 2 ml vial IV ONE (08:09)
--- NOTE | 2017-09-17 08:44 | Operative Report ---
DATE OF SURGERY: 09/17/2017 PREOPERATIVE DIAGNOSES: 1. Stage IV right hip decubitus ulcer. 2. Stage IV sacral decubitus ulcer. 3. Diabetes mellitus. 4. End-stage renal disease, on hemodialysis. 5. Chronic obstructive pulmonary disease. POSTOPERATIVE DIAGNOSES: 1. Stage IV right hip decubitus ulcer. 2. Stage IV sacral decubitus ulcer. 3. Diabetes mellitus. 4. End-stage renal disease, on hemodialysis. 5. Chronic obstructive pulmonary disease. OPERATION DONE: 1. Excisional debridement of right hip decubitus ulcer. 2. Excisional debridement of sacral decubitus ulcer. 3. Application of wound VAC to both ulcers. SURGEON: Kaden Bhandari MD ANESTHESIA: MAC. ANESTHESIOLOGIST: Wade Gandara MD ESTIMATED BLOOD LOSS: 5 mL. OPERATIVE FINDINGS: 1. Right hip ulcer measures 8 x 8 cm with tunneling, the base of which was the bone. 2. Sacral decubitus ulcer measures 12 x 10 cm with fair granulation tissue, base is the sacral bone. DESCRIPTION OF PROCEDURE: The patient was given IV sedation. The right hip and sacral regions were prepped with Betadine and draped in appropriate manner. A 1% lidocaine was used to infiltrate the area surrounding the ulcers. Sharp scissors were used to excise tissues and cultures were taken. The right hip ulcer had tunneling and all the way down to the bone. This was re-prepped with Betadine following debridement. Additional tissues from the sacral ulcer were likewise debrided. Following satisfactory hemostasis, a silver sponge was fashioned to have a bridge between the 2 ulcers. Wound VAC was applied. The patient tolerated the procedure well. JOB# [id number]
[2017-09-17] MEDS: Venelex 60gm Tube TP SCH ×2 (09:05)
[2017-09-17] MEDS: Multivitamin Tab GT SCH (09:11)
[2017-09-17] MEDS: Morphine Sulfate 2 mg/mL 1mL Syr IVP PRN (09:11)
[2017-09-17] MEDS: Lactobacillus Rhamnosus 10 Billion CFU Capsule GT SCH (09:11)
[2017-09-17] MEDS: Chlorhexidine Gluconate 0.12% 15mL Mouthwash MM SCH ×2 (09:12→22:24)
[2017-09-17 09:30] LABS: pH 7.43 (7.35-7.45)
[2017-09-17] MEDS ORDERED: Amikacin 250 mg in D5W 100mL IV ONE (09:30)
[2017-09-17 09:31] LABS: ABG SOURCE Arterial; ALLEN TEST YES; BE(B) 3.2 mEq/L (-3.0-3.0); HCO3 27.5 mEq/L (20.0-26.0); MECH RATE 17
[2017-09-17 09:32] LABS: FIO2 35; MECH VT 429; PS 8
[2017-09-17] MEDS ORDERED: Epoetin Alfa 20000 Units/mL Vial SUBQ SCH (10:22)
--- NOTE | 2017-09-17 12:02 | Consultation ---
DATE OF CONSULTATION: 09/15/2017 PULMONARY AND CRITICAL CARE CONSULTATION REASON FOR CONSULTATION: Help the patient with respiratory failure. CONSULT NOTE: This is an 82-year-old gentleman who has multiple medical problems, apparently currently is intubated and detailed history is very difficult, he is not available. The patient was admitted directly from [place] for excisional debridement of the ulcers and possibly performing diverting colostomy and application of wound VAC and the patient was basically transferred from [facility] for above reasons and the patient basically had surgery done yesterday and apparently, the patient was on a ventilator. Subsequently, I was asked to see this patient for further care and necessary treatment. PAST MEDICAL HISTORY: End-stage renal disease on hemodialysis, history of dyslipoproteinemia, history of diabetes mellitus, history of dementia, atrial flutter, congestive heart failure, history of C. diff colitis, history of cervical fracture with fusion and also other issues with his complete bedridden situations as well as history of significant flexion contractions as well as bony joint end points ulcer. History from the patient is not available. PHYSICAL FINDINGS: GENERAL: This is an elderly looking gentleman, awake, but not too much communication could be done. VITAL SIGNS: The patient's recorded vitals: Temperature is 97, heart rate is 80, blood pressure 103/54, saturation 100% on 40% of oxygen on CPAP with pressor support. HEENT: Examination of the head is essentially unremarkable. Pupils appear to be equal and reacting to light. Conjunctivae are slightly pallor. Oral cavity shows poor dental hygiene with endotracheal tube in situ. NECK: No nodes in the neck could be palpated. CHEST: Findings shows previous surgical scar on sternum. On auscultation, diminished air entry with occasional rhonchi. HEART: Distant with some irregularity. ABDOMEN: Shows colostomy tube recently with G-tube with lower abdomen shows surgical scar. EXTREMITIES: Shows flexion contractures and both the ankle area has ulcerations which is dressed. LABORATORY DATA AND IMAGING STUDIES: The patient's chest x-ray shows endotracheal tube in situ, cardiomegaly with bilateral effusion with sternal sutures from previous coronary bypass surgery and the patient's WBC is 27,000, hemoglobin 9.8. ABG initially ____ post surgery to 100%, since then it has been down and the patient's repeat blood count today, white count is still elevated. Electrolytes are okay except for BUN and creatinine significantly with elevated sugar. IMPRESSION: The patient has perioperative respiratory failure secondary to major surgery, possibly anesthesia, question underlying chronic obstructive pulmonary disease with possibly mild degree of fluid overload with significant debilitated condition, previous history of coronary bypass surgery and multiple other surgeries as well. PLANS AND SUGGESTIONS: We will go ahead and give the patient CPAP with pressor support, await for dialysis to finish, wait for 24 hours. Repeat blood gasses and chest x-ray. If he is stable enough, may consider extubating and go from there. JOB# [id number]
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
--- NOTE | 2017-09-17 13:34 | Cardiology ---
09/15/[address] Alvares. M-MODE ECHOCARDIOGRAM: Mitral valve, anterior leaflet of mitral valve shows normal excursion, EF velocity. Posterior leaflet of mitral valve shows normal excursion. Left ventricular posterior wall shows increased thickness, normal excursion. Interventricular septum shows increased thickness, normal excursion, hypertrophy of the left ventricle, ejection fraction 55%. Left atrium enlarged 4.5 cm. Aortic root shows normal dimension, normal excursion of aortic leaflets. CONCLUSION: Hypertrophy of the left ventricle, left atrial enlargement, ejection fraction 55%. 2D ECHO: Long axis view showed normal sized left ventricle with hypertrophy of the left ventricle. Left atrium enlarged. Aortic root shows normal dimension, normal excursion of aortic leaflets. Short axis view of mitral valve normal. Short axis view of aortic valve normal. Apical 4 chamber view showed normal sized left ventricle with hypertrophy of the left ventricle. Left atrium enlarged. Right ventricular cavity, right atrium normal, no pericardial effusion. CONCLUSION: Hypertrophy of the left ventricle, left atrial enlargement, ejection fraction 55%. Doppler study shows prominent A wave consistent with poor compliance of left ventricle, moderate tricuspid regurgitation, right ventricular systolic pressure 46 mmHg. CONCLUSION: Hypertrophy of the left ventricle, left atrial enlargement, ejection fraction 60%, mild pulmonary hypertension. Moderate tricuspid regurgitation. JOB# [id number]
[2017-09-17] MEDS: D5-0.9%NS 1,000 ML IV SCH (14:46)
--- NOTE | 2017-09-17 15:20 | Progress Notes ---
DATE: 09/16/2017 PULMONARY/CRITICAL CARE PROGRESS NOTE PROBLEM LIST: 1. Status post colostomy diverting with debridement on postoperative ventilator. 2. Chronic obstructive pulmonary disease. 3. History of coronary bypass surgery, also history of chronic renal failure, on hemodialysis; and also history of cervical disc arthrodesis. SYMPTOMS: The patient opens eyes, not too much communication could be done, still on vent with pressor support. PHYSICAL EXAMINATION: VITAL SIGNS: Temperature is 99, pulse is 80, blood pressure 137/88, saturation 100% on 40% on CPAP support. LABORATORY AND DIAGNOSTIC DATA: White count is still 28,000, hemoglobin 8.5. ABG, pO2 is 162 on pressor support with 10 cm. Chest x-ray shows still some haziness at the bases with some suggestions were pulmonary hypertension. ASSESSMENT: The patient clinically appears to be stable, not much change. PLANS AND SUGGESTIONS: We will go ahead and continue current treatment. We will decrease FiO2 as the patient under plan for surgery will hold off extubation today and see how he does post-surgery before extubation could be done and go from there. JOB# [id number]
--- NOTE | 2017-09-17 16:50 | General Progress Note ---
Subjective - Review of Systems Service Date: 09/17/17 Events since last encounter: dialyzed earlier 2L Uf on vent Subjective: none new Objective - Results Result Diagrams: 09/17/17 05:45 09/17/17 05:45 Recent Labs: Laboratory Last Values WBC 20.2 Th/cmm (4.8-10.8) H* D 09/17/17 05:45 RBC 2.90 Mil/cmm (3.80-5.80) L 09/17/17 05:45 Hgb 8.6 gm/dL (12-16) L 09/17/17 05:45 Hct 25.8 % (41.0-60) L 09/17/17 05:45 MCV 89.1 fl (80-99) 09/17/17 05:45 MCH 29.5 pg (27.0-31.0) 09/17/17 05:45 MCHC Differential 33.1 pg (28.0-36.0) 09/17/17 05:45 RDW 15.3 % (11.5-20.0) 09/17/17 05:45 Plt Count 296 Th/cmm (150-400) 09/17/17 05:45 MPV 8.2 fl 09/17/17 05:45 Band Neutrophils % 4 % (0-10) 09/17/17 05:45 Neutrophils (Manual) 89 % (40-80) H 09/17/17 05:45 Lymphocytes 2 % (20-50) L 09/17/17 05:45 Monocytes 3 % (2-10) 09/17/17 05:45 Eosinophils 2 % (0-5) 09/17/17 05:45 Basophils 0 % (0-3) 09/17/17 05:45 Platelet Estimate ADEQUATE (NORMAL) 09/17/17 05:45 Platelet Morphology NORMAL (NORMAL) 09/17/17 05:45 Anisocytosis 1+ 09/15/17 06:39 RBC Morph Micro Appear NORMAL (NORMAL) 09/17/17 05:45 Specimen Source Arterial 09/17/17 09:00 Sample Site Right Radial 09/17/17 09:00 pH 7.43 (7.35-7.45) 09/17/17 09:00 pCO2 42.0 mmHg (35.0-45.0) 09/17/17 09:00 pO2 124.0 mmHg (80.0-100.0) H 09/17/17 09:00 HCO3 27.5 mEq/L (20.0-26.0) H 09/17/17 09:00 Base Excess 3.2 mEq/L (-3.0-3.0) H 09/17/17 09:00 O2 Saturation 99.0 % (92.0-100.0) 09/17/17 09:00 Willi Test YES 09/17/17 09:00 Vent Rate 17 09/17/17 09:00 Inspired O2 35 09/17/17 09:00 Tidal Volume 429 09/17/17 09:00 PEEP 5 09/17/17 09:00 Pressure (ins/psv/peep) 8 09/17/17 09:00 Critical Value JESSIE 09/17/17 09:00 Sodium 132 mEq/L (136-145) L 09/17/17 05:45 Potassium 4.3 mEq/L (3.5-5.1) 09/17/17 05:45 Chloride 98 mEq/L (98-107) 09/17/17 05:45 Carbon Dioxide 25.7 mEq/L (21.0-31.0) 09/17/17 05:45 Anion Gap 12.6 (7.0-16.0) 09/17/17 05:45 BUN 88 mg/dL (7-25) H* 09/17/17 05:45 Creatinine 4.5 mg/dL (0.7-1.3) H* 09/17/17 05:45 Est GFR ( Amer) TNP 09/17/17 05:45 Est GFR (Non-Af Amer) TNP 09/17/17 05:45 BUN/Creatinine Ratio 19.6 09/17/17 05:45 Glucose 199 mg/dL (70-105) H 09/17/17 05:45 POC Glucose 212 MG/DL (70 - 105) H 09/17/17 16:41 Hemoglobin A1c % 6.5 % (4.0-6.0) H 09/15/17 06:35 Calcium 8.3 mg/dL (8.6-10.3) L 09/17/17 05:45 Phosphorus 3.7 mg/dL (2.5-5.0) 09/15/17 06:39 Magnesium 2.5 mg/dL (1.9-2.7) 09/16/17 04:27 Total Bilirubin 0.5 mg/dL (0.3-1.0) 09/17/17 05:45 AST 17 U/L (13-39) 09/17/17 05:45 ALT 31 U/L (7-52) 09/17/17 05:45 Alkaline Phosphatase 215 U/L (34-104) H 09/17/17 05:45 Ammonia 40 umol/L (16-53) 09/16/17 04:27 B-Natriuretic Peptide 1400.0 pg/mL (5.0-100.0) H 09/16/17 04:27 Total Protein 5.8 gm/dL (6.0-8.3) L 09/17/17 05:45 Albumin 2.2 gm/dL (4.2-5.5) L 09/17/17 05:45 Globulin 3.6 gm/dL 09/17/17 05:45 Albumin/Globulin Ratio 0.6 (1.0-1.8) L 09/17/17 05:45 Random Amikacin 10.7 ug/ml (1.0-30.0) 09/15/17 16:54 Random Vancomycin 23.6 ug/mL (5.0-40.0) 09/17/17 05:45 Hepatitis A IgM Ab Negative (Negative) 09/15/17 13:00 Hep Bs Antigen Negative (Negative) 09/15/17 13:00 Hep B Core IgM Ab Negative (Negative) 09/15/17 13:00 Hepatitis C Antibody 0.2 s/co ratio (0.0-0.9) 09/15/17 13:00 - Physical Exam Vitals and I&O: Vital Signs Temp 98.7 F 09/17/17 15:00 Pulse 82 09/17/17 15:00 Resp 19 09/17/17 15:06 BP 135/62 09/17/17 15:00 Pulse Ox 100 09/17/17 15:00 Intake & Output 09/16/17 09/17/17 09/17/17 18:59 06:59 18:59 Intake Total 1060 848.667 344 Output Total 150 100 Balance 910 748.667 344 Weight (lbs) 73.482 kg 73.527 kg Intake: Intake, IV Amount 380 598.667 344 D5-0.9%Ns 1,000 ml @ 40 280 498.667 344 mls/hr IV .Q24H [facility] Rx#: [id number] Meropenem 500 mg In 100 100 Sodium Chloride 0.9% 100 ml @ 100 mls/hr IV Q12H [facility] Rx#:[id number] Oral 80 Tube Feeding 600 250 Output: Stool 150 Other 100 Other: Stool Characteristics Liquid Liquid Liquid Foamy Active Medications: Current Medications Acetaminophen (Tylenol) 650 mg PO Q4H PRN PRN Reason: Pain Or Fever above 101 Stop: 11/13/17 09:45 Acetaminophen/Hydrocodone Bitart ([place] 5mg/325mg) 1 tab PO Q4H PRN PRN Reason: Pain (Severe) Stop: 11/13/17 09:45 Acetaminophen/Hydrocodone Bitart ([place] 5mg/325mg) 1 tab GT Q6HR PRN PRN Reason: Pain (Mild) Stop: 11/13/17 11:00 Al Hydrox/Mg Hydrox/Simethicone (Maalox) 30 ml PO Q6H PRN PRN Reason: Dyspepsia Stop: 11/13/17 09:45 Albuterol Sulfate (Albuterol 2.5mg/3ml Neb Ud) 2.5 mg HHN Q2HRT PRN PRN Reason: Shortness of Breath or Wheeze Stop: 11/13/17 09:45 Albuterol Sulfate (Albuterol 2.5mg/3ml Neb Ud) 2.5 mg HHN QIDRT [facility] Stop: 11/13/17 14:59 Last Admin: 09/17/17 14:56 Dose: 2.5 mg Amlodipine Besylate (Norvasc) 5 mg GT DAILY [facility] Stop: 11/14/17 08:59 Last Admin: 09/17/17 09:04 Dose: Not Given Atropine Sulfate (Atropine) 1 mg IVP Q4HR PRN PRN Reason: BRADYCARDIA Stop: 11/13/17 11:00 Budesonide (Pulmicort) 0.5 mg HHN BIDRT [facility] Stop: 11/14/17 18:59 Last Admin: 09/17/17 06:30 Dose: 0.5 mg Chlorhexidine Gluconate (Peridex) 15 ml MM 0800,1999 [facility] Stop: 11/13/17 19:59 Last Admin: 09/17/17 09:12 Dose: 15 ml Epoetin Markus (Epogen) 5,000 units SUBQ MoWeFr [facility] Stop: 11/16/17 10:21 Famotidine (Pepcid) 20 mg IVP Q12H [facility] Stop: 11/14/17 08:59 Last Admin: 09/17/17 09:11 Dose: 20 mg Folic Acid (Folate) 1 mg GT DAILY [facility] Stop: 11/14/17 08:59 Last Admin: 09/17/17 09:11 Dose: 1 mg Heparin Sodium (Porcine) (Heparin) 5,000 units SUBQ Q12HR [facility] Stop: 11/14/17 20:59 Last Admin: 09/17/17 09:11 Dose: 5,000 units Hydrochlorothiazide (Hctz) 25 mg GT DAILY [facility] Stop: 11/14/17 08:59 Last Admin: 09/17/17 09:05 Dose: Not Given Meropenem 500 mg/ Sodium (Chloride) 100 mls @ 100 mls/hr IV Q12H [facility] Stop: 11/13/17 16:59 Last Admin: 09/17/17 16:04 Dose: 100 mls/hr Dextrose/Sodium Chloride (D5-0.9%Ns) 1,000 mls @ 40 mls/hr IV .Q24H [facility] Stop: 11/13/17 09:59 Last Admin: 09/17/17 14:46 Dose: 40 mls/hr Albumin Human (Albutein 25%) 12.5 gm in 50 mls @ 50 mls/hr IV TELMA PRN PRN Reason: BP Support During HD Stop: 11/16/17 00:00 Insulin Aspart (Novolog) 0 units SUBQ ACHS [facility] PRN Reason: Protocol Stop: 11/13/17 11:29 Last Admin: 09/17/17 12:00 Dose: Not Given Ipratropium [place] (Atrovent Neb 0.5mg/2.5ml) 0.5 mg IH Q2HRT PRN PRN Reason: Shortness of Breath or Wheeze Stop: 11/13/17 09:45 Ipratropium [place] (Atrovent Neb 0.5mg/2.5ml) 0.5 mg IH QIDRT [facility] Stop: 11/13/17 14:59 Last Admin: 09/17/17 14:57 Dose: 0.5 mg Lactobacillus Rhamnosus (Culturelle) 1 each GT DAILY MAGI Stop: 11/13/17 12:59 Last Admin: 09/17/17 09:11 Dose: 1 each Lactulose (Cephulac) 10 gm GT Q12HR PRN PRN Reason: CONSTIPATION Losartan Potassium (Cozaar) 100 mg GT DAILY MAGI Stop: 11/14/17 08:59 Last Admin: 09/17/17 09:05 Dose: Not Given Metoprolol Tartrate (Lopressor) 50 mg GT BID MAGI Stop: 11/13/17 16:59 Last Admin: 09/17/17 09:06 Dose: Not Given Miscellaneous (Vancomycin Iv Per Pharmacy) 1 ea PRN [facility] Stop: 11/13/17 13:29 Miscellaneous (Amikacin Iv Per Pharmacy) 1 [facility] PRN PRN PRN Reason: PROTOCOL Stop: 11/13/17 15:02 Miscellaneous (Probiotic Screen) 1 [facility] PRN PRN PRN Reason: PROTOCOL Stop: 11/15/17 11:35 Morphine Sulfate (Morphine) 2 mg IVP Q4H PRN PRN Reason: Pain (Severe) Stop: 11/13/17 09:45 Last Admin: 09/17/17 09:11 Dose: 2 mg Morphine Sulfate (Morphine) 2 mg IVP Q6HR PRN PRN Reason: PAIN Multivitamins/Vitamin C (Theragran) 1 tab GT DAILY MAGI Stop: 11/14/17 08:59 Last Admin: 09/17/17 09:11 Dose: 1 tab Ondansetron HCl (Zofran) 4 mg IV Q8H PRN PRN Reason: Nausea / Vomiting Stop: 11/13/17 09:45 Last Admin: 09/15/17 23:38 Dose: 4 mg Physical Exam: arousable nad head nc/at sclerae anicteric neck in cervical collar cv rrr lungs cta b abd soft ntn+colostomy ext no edema - Procedures Procedures: Procedures Procedure Code Date BYPASS ASCENDING COLON TO CUTANEOUS, OPEN APPROACH [id number] 09/14/17 COLOSTOMY 31158 09/14/17 LIN[place]OD BONE 20 SQ CM/< [id number] 09/14/17 [place] SUBQ TISSUE 20 SQ CM/< [id number] 09/14/17 EXCISION OF BACK SUBCU/FASCIA, OPEN APPROACH [id number] 09/14/17 EXCISION OF SACRUM, OPEN APPROACH [id number] 09/14/17 RESPIRATORY VENTILATION, 24-96 CONSECUTIVE HOURS [id number] 09/14/17 Assessment/Plan - Assessment Assessment: esrd/dialysis status anemia with esrd sacral wound s/p excisional debridement diverting colostomy status new htn w es[facility] healthcare assoc pna - Plan Plan: dialysis sunday cont abx cont postopcare wean vent\\ epogen Nutritional Asmnt/Malnutr-PDOC - Dietary Evaluation Malnutrition Findings (Please click <Entered> for more info): Nutritional Asmnt/Malnutrition Start: 09/15/17 12: 18 Text: Status: Complete Freq: Document 09/15/17 12:18 MMULHERN (Rec: 09/15/17 12:29 [email or web address] [email or web address]- [id number]) Nutritional Asmnt/Malnutrition Patient General Information Nutritional Screening High Risk Screening Diagnosis sacrum wound Pertinent Medical Hx/Surgical Hx ESRD on HD, CAD, hyperlipidemia, type 2 diabetes, dementia, atrial flutter, CHF, peripheral arterial disease, Clostridium difficile colitis, cervical 2- 3 fracture and contusion, small hematoma in the cervical . Subjective Information Per nursing notes, patient with multiple pressure wounds, 09/14 had surgery for diverting colostomy and wound vac appliaction. Patient remains intubated. Patient receiving hemodialysis at time of visit. G tube to low intermitent suction. Noted that patient is likely not 6'6 " tall as noted in chart. Patient appears smaller, maybe 66". Patient with severeal temporal wasting. Current Diet Order/ Nutrition Support NPO Patient / S.O Not Indicated Pertinent Medications maalox, D5-0.9% NS @ 80ml/hr, pepcid, folate, novolog, culturelle, lactulose, cozaar, reglan, vancomycin, theragran , zofran Pertinent Labs (09/15) Na 133, K 5.1, BUN 115 , Cr 4.9 (HD patient), Glucose 128-233, HGA1C 6.5, alkaline phosphatase 238, BNP 4140, albumin 2.3 Nutritional Hx/Data Height 1.68 m Height (Calculated Centimeters) 167.6 Current Weight (lbs) 71.214 kg Weight (Calculated Kilograms) 71.2 Weight (Calculated Grams) 84477.0 [place] Body Weight 142 % [place] Body Weight 110 Weight Status Underweight GI Symptoms Difficult in: Swallowing Food Allergies No Cultural/Ethnic/Worship Belief None indicated Usual diet at home unknown Skin Integrity/Comment: Cali 11, decubitus ulcer on left hip, right heel, right thigh, sacrum Current %PO intubated Estimated Nutritional Goals BEE in Kcals: Adj wt of IBW Calories/Kcals/Kg [place] body weight 64.5kg Kcals Calculated 7697-9116 kcal/day (25-30 kcal /kg) - intubated, HD, wounds Protein: Adj wt of IBW Protein g/kg: (1.5-2 gm/kg) - HD, wounds, I& D/wound vac Protein Calculated 95-130 gm/day Fluid: ml Per MD Dialysis Nutritional Problem 2. Problem Problem Altered nutrition related lab values related to Etiology renal dysfunction/ electrolyte imbalance aeb Signs/Symptoms: Na 133, K 5.1, BUN 115, Cr 4.9 (HD patient), Glucose 128-233 1. Problem Problem Increased nutrient needs related to Etiology impaired skin integrity/ hypermetabolic state aeb Signs/Symptoms: patient receives HD and has multiple decubitus ulcers, S/p wound vac application Intervention/Recommendation Comments 1. When medically appropriate, start tube feeding Novasource Renal with goal rate 40 ml/hr . This provides 960 ml volume, 1920 kcal, 87gm protein, 688 ml free water. Add Prosource 1 packet/day for an additional 15gm protein (102 gm/day total ). Expected Outcomes/Goals Expected Outcomes/Goals Patient receives nutrition within 48 hours, nutrition related labs normalize, weight remains stable or trends toward ideal body weight. F/U as HR 09/17-
[2017-09-18] MEDS: INSULIN ASPART, RECOMBINANT 100 UNITS/ML SUBQ SCH ×5 (00:05→21:18)
--- NOTE | 2017-09-18 02:37 | Progress Notes ---
DATE: 09/17/2017 PROBLEM LIST: 1. Respiratory failure postoperatively. 2. New debridement left hip, vent has been not changed, on CPAP with pressor support. SYMPTOMS: The patient is wincing and squeezing the eyes, presumably because possibly having pain, currently under dialysis. PHYSICAL EXAMINATION: VITAL SIGNS: Temperature is 97.0 Fahrenheit, heart rate in 70s, blood pressure is normotensive, and saturation 100% on 35% of oxygen. NECK: Veins not visualized. CHEST: Shows slightly diminished ____. LABORATORY DATA: White count is 20,000, hemoglobin 8.6. ABG, pO2 is 124 on CPAP for 5 cm. Electrolytes are okay, except for creatinine of 4.5. IMPRESSION: The patient clinically is better, stable just had a recent surgery. PLANS AND SUGGESTIONS: We will go ahead and await for another 24 hours before extubating. We will repeat chest x-ray and labs tomorrow morning, see how it is, and go from there. JOB# [id number]
[2017-09-18 04:10] LABS: FOLIC ACID >20.0 ng/mL (>3.0)
[2017-09-18 05:37] LABS: ANION GAP 9.5 (7.0-16.0); BUN - UREA NITROGEN 61 mg/dL (7-25); BUN/CREATININE RATIO 17.4; CALCIUM SERUM 8.4 mg/dL (8.6-10.3); CARBON DIOXIDE 28.1 mEq/L (21.0-31.0); CHLORIDE 100 mEq/L (98-107); CREATININE - SERUM 3.5 mg/dL (0.7-1.3); GLUCOSE 188 mg/dL (70-105); POTASSIUM SERUM 3.6 mEq/L (3.5-5.1); SODIUM SERUM 134 mEq/L (136-145)
[2017-09-18 05:45] LABS: HEMATOCRIT 24.9 % (41.0-60); HEMOGLOBIN 8.2 gm/dL (12-16); MEAN CELL VOLUME 89.9 fl (80-99); MEAN CORPUSCULAR HEMOGLOBIN 29.6 pg (27.0-31.0); MEAN PLATELET VOLUME 8.3 fl; PLATELET COUNT 275 Th/cmm (150-400); RED BLOOD COUNT 2.77 Mil/cmm (3.80-5.80)
[2017-09-18 05:56] LABS: WHITE BLOOD COUNT 15.2 Th/cmm (4.8-10.8)
[2017-09-18] MEDS: Meropenem 500 MG in Sodium Chloride 0.9% 100 ML IV SCH ×2 (06:00→17:10)
[2017-09-18 06:28] LABS: BAND NEUTROPHILE 3 % (0-10); EOSINOPHIL 3 % (0-5); NEUTROPHILS 78 % (40-80); TOTAL CELLS COUNTED 100
[2017-09-18] MEDS: Morphine Sulfate 2 mg/mL 1mL Syr IVP PRN ×2 (07:34→14:51)
[2017-09-18] MEDS: Ipratropium Neb 0.5 mg/2.5 mL UD IH SCH ×4 (07:48→19:20)
[2017-09-18] MEDS: Albuterol Nebulizer 2.5mg/3mL HHN SCH ×4 (07:48→19:20)
[2017-09-18] MEDS: Budesonide 0.5 Mg/2 mL Ud HHN SCH ×2 (08:05→19:20)
[2017-09-18] MEDS: Venelex 60gm Tube TP SCH (08:30)
[2017-09-18] MEDS: Lactobacillus Rhamnosus 10 Billion CFU Capsule GT SCH (08:40)
[2017-09-18] MEDS: Multivitamin Tab GT SCH (08:41)
[2017-09-18] MEDS: Chlorhexidine Gluconate 0.12% 15mL Mouthwash MM SCH (08:44)
--- NOTE | 2017-09-18 08:53 | General Progress Note ---
Subjective - Review of Systems Service Date: 09/18/17 Events since last encounter: 09/18/17 for extubation today, possible DC back to [facility] Objective - Results Result Diagrams: 09/18/17 05:10 09/18/17 05:10 Recent Labs: Laboratory Last Values WBC 15.2 Th/cmm (4.8-10.8) H D 09/18/17 05:10 RBC 2.77 Mil/cmm (3.80-5.80) L 09/18/17 05:10 Hgb 8.2 gm/dL (12-16) L 09/18/17 05:10 Hct 24.9 % (41.0-60) L 09/18/17 05:10 MCV 89.9 fl (80-99) 09/18/17 05:10 MCH 29.6 pg (27.0-31.0) 09/18/17 05:10 MCHC Differential 33.0 pg (28.0-36.0) 09/18/17 05:10 RDW 15.0 % (11.5-20.0) 09/18/17 05:10 Plt Count 275 Th/cmm (150-400) 09/18/17 05:10 MPV 8.3 fl 09/18/17 05:10 Neutrophils % [employer] 09/18/17 05:10 Band Neutrophils % 3 % (0-10) 09/18/17 05:10 Lymphocytes % [employer] 09/18/17 05:10 Monocytes % [employer] 09/18/17 05:10 Eosinophils % [employer] 09/18/17 05:10 Basophils % [employer] 09/18/17 05:10 Neutrophils (Manual) 78 % (40-80) 09/18/17 05:10 Lymphocytes 9 % (20-50) L 09/18/17 05:10 Monocytes 7 % (2-10) 09/18/17 05:10 Eosinophils 3 % (0-5) 09/18/17 05:10 Basophils 0 % (0-3) 09/17/17 05:45 Platelet Estimate ADEQUATE (NORMAL) 09/17/17 05:45 Platelet Morphology NORMAL (NORMAL) 09/17/17 05:45 Anisocytosis 1+ 09/15/17 06:39 RBC Morph Micro Appear NORMAL (NORMAL) 09/17/17 05:45 Specimen Source Arterial 09/17/17 09:00 Sample Site Right Radial 09/17/17 09:00 pH 7.43 (7.35-7.45) 09/17/17 09:00 pCO2 42.0 mmHg (35.0-45.0) 09/17/17 09:00 pO2 124.0 mmHg (80.0-100.0) H 09/17/17 09:00 HCO3 27.5 mEq/L (20.0-26.0) H 09/17/17 09:00 Base Excess 3.2 mEq/L (-3.0-3.0) H 09/17/17 09:00 O2 Saturation 99.0 % (92.0-100.0) 09/17/17 09:00 Willi Test YES 09/17/17 09:00 Vent Rate 17 09/17/17 09:00 Inspired O2 35 09/17/17 09:00 Tidal Volume 429 09/17/17 09:00 PEEP 5 09/17/17 09:00 Pressure (ins/psv/peep) 8 09/17/17 09:00 Critical Value JESSIE 09/17/17 09:00 Sodium 134 mEq/L (136-145) L 09/18/17 05:10 Potassium 3.6 mEq/L (3.5-5.1) 09/18/17 05:10 Chloride 100 mEq/L (98-107) 09/18/17 05:10 Carbon Dioxide 28.1 mEq/L (21.0-31.0) 09/18/17 05:10 Anion Gap 9.5 (7.0-16.0) 09/18/17 05:10 BUN 61 mg/dL (7-25) H 09/18/17 05:10 Creatinine 3.5 mg/dL (0.7-1.3) H 09/18/17 05:10 Est GFR ( Amer) TNP 09/18/17 05:10 Est GFR (Non-Af Amer) TNP 09/18/17 05:10 BUN/Creatinine Ratio 17.4 09/18/17 05:10 Glucose 188 mg/dL (70-105) H 09/18/17 05:10 POC Glucose 205 MG/DL (70 - 105) H 09/18/17 06:31 Hemoglobin A1c % 6.5 % (4.0-6.0) H 09/15/17 06:35 Calcium 8.4 mg/dL (8.6-10.3) L 09/18/17 05:10 Phosphorus 3.7 mg/dL (2.5-5.0) 09/15/17 06:39 Magnesium 2.5 mg/dL (1.9-2.7) 09/16/17 04:27 Total Bilirubin 0.5 mg/dL (0.3-1.0) 09/17/17 05:45 AST 17 U/L (13-39) 09/17/17 05:45 ALT 31 U/L (7-52) 09/17/17 05:45 Alkaline Phosphatase 215 U/L (34-104) H 09/17/17 05:45 Ammonia 40 umol/L (16-53) 09/16/17 04:27 B-Natriuretic Peptide 2040.0 pg/mL (5.0-100.0) H 09/18/17 05:10 Total Protein 5.8 gm/dL (6.0-8.3) L 09/17/17 05:45 Albumin 2.2 gm/dL (4.2-5.5) L 09/17/17 05:45 Globulin 3.6 gm/dL 09/17/17 05:45 Albumin/Globulin Ratio 0.6 (1.0-1.8) L 09/17/17 05:45 Vitamin B12 >1999 pg/mL (211-946) H 09/16/17 04:27 Folic Acid >20.0 ng/mL (>3.0) 09/16/17 04:27 Random Amikacin 10.7 ug/ml (1.0-30.0) 09/15/17 16:54 Random Vancomycin 23.6 ug/mL (5.0-40.0) 09/17/17 05:45 Hepatitis A IgM Ab Negative (Negative) 09/15/17 13:00 Hep Bs Antigen Negative (Negative) 09/15/17 13:00 Hep B Core IgM Ab Negative (Negative) 09/15/17 13:00 Hepatitis C Antibody 0.2 s/co ratio (0.0-0.9) 09/15/17 13:00 - Physical Exam Vitals and I&O: Vital Signs Temp 98.7 F 09/18/17 01:00 Pulse 83 09/18/17 08:41 Resp 16 09/18/17 03:00 BP 132/66 09/18/17 08:41 Pulse Ox 100 09/18/17 08:00 Intake & Output 09/17/17 09/18/17 09/18/17 18:59 06:59 18:59 Intake Total 694 Output Total 2070 100 Balance -1376 -100 Weight (lbs) 72.575 kg 72.575 kg Intake: Intake, IV Amount 444 D5-0.9%Ns 1,000 ml @ 40 344 mls/hr IV .Q24H [facility] Rx#: [id number] Meropenem 500 mg In 100 Sodium Chloride 0.9% 100 ml @ 100 mls/hr IV Q12H [facility] Rx#:[id number] Tube Feeding 250 Output: Stool 70 Other 2000 100 Other: Stool Characteristics Liquid Active Medications: Current Medications Acetaminophen (Tylenol) 650 mg PO Q4H PRN PRN Reason: Pain Or Fever above 101 Stop: 11/13/17 09:45 Acetaminophen/Hydrocodone Bitart ([place] 5mg/325mg) 1 tab PO Q4H PRN PRN Reason: Pain (Severe) Stop: 11/13/17 09:45 Acetaminophen/Hydrocodone Bitart ([place] 5mg/325mg) 1 tab GT Q6HR PRN PRN Reason: Pain (Mild) Stop: 11/13/17 11:00 Al Hydrox/Mg Hydrox/Simethicone (Maalox) 30 ml PO Q6H PRN PRN Reason: Dyspepsia Stop: 11/13/17 09:45 Albuterol Sulfate (Albuterol 2.5mg/3ml Neb Ud) 2.5 mg HHN Q2HRT PRN PRN Reason: Shortness of Breath or Wheeze Stop: 11/13/17 09:45 Albuterol Sulfate (Albuterol 2.5mg/3ml Neb Ud) 2.5 mg HHN QIDRT [facility] Stop: 11/13/17 14:59 Last Admin: 09/18/17 07:48 Dose: 2.5 mg Amlodipine Besylate (Norvasc) 5 mg GT DAILY [facility] Stop: 11/14/17 08:59 Last Admin: 09/17/17 09:04 Dose: Not Given Atropine Sulfate (Atropine) 1 mg IVP Q4HR PRN PRN Reason: BRADYCARDIA Stop: 11/13/17 11:00 Budesonide (Pulmicort) 0.5 mg HHN BIDRT [facility] Stop: 11/14/17 18:59 Last Admin: 09/18/17 08:05 Dose: 0.5 mg Chlorhexidine Gluconate (Peridex) 15 ml MM 0800,1999 [facility] Stop: 11/13/17 19:59 Last Admin: 09/18/17 08:44 Dose: 15 ml Epoetin Markus (Epogen) 5,000 units SUBQ MoWeFr [facility] Stop: 11/16/17 10:21 Last Admin: 09/17/17 16:55 Dose: 5,000 units Famotidine (Pepcid) 20 mg IVP Q12H [facility] Stop: 11/14/17 08:59 Last Admin: 09/18/17 08:40 Dose: 20 mg Folic Acid (Folate) 1 mg GT DAILY [facility] Stop: 11/14/17 08:59 Last Admin: 09/18/17 08:41 Dose: 1 mg Heparin Sodium (Porcine) (Heparin) 5,000 units SUBQ Q12HR [facility] Stop: 11/14/17 20:59 Last Admin: 09/18/17 08:40 Dose: 5,000 units Hydrochlorothiazide (Hctz) 25 mg GT DAILY [facility] Stop: 11/14/17 08:59 Last Admin: 09/18/17 08:41 Dose: 25 mg Meropenem 500 mg/ Sodium (Chloride) 100 mls @ 100 mls/hr IV Q12H [facility] Stop: 11/13/17 16:59 Last Admin: 09/18/17 06:00 Dose: 100 mls/hr Dextrose/Sodium Chloride (D5-0.9%Ns) 1,000 mls @ 40 mls/hr IV .Q24H [facility] Stop: 11/13/17 09:59 Last Admin: 09/17/17 14:46 Dose: 40 mls/hr Albumin Human (Albutein 25%) 12.5 gm in 50 mls @ 50 mls/hr IV TELMA PRN PRN Reason: BP Support During HD Stop: 11/16/17 00:00 Insulin Aspart (Novolog) 0 units SUBQ ACHS [facility] PRN Reason: Protocol Stop: 11/13/17 11:29 Last Admin: 09/18/17 07:31 Dose: 2 units Ipratropium [place] (Atrovent Neb 0.5mg/2.5ml) 0.5 mg IH Q2HRT PRN PRN Reason: Shortness of Breath or Wheeze Stop: 11/13/17 09:45 Ipratropium [place] (Atrovent Neb 0.5mg/2.5ml) 0.5 mg IH QIDRT [facility] Stop: 11/13/17 14:59 Last Admin: 09/18/17 07:48 Dose: 0.5 mg Lactobacillus Rhamnosus (Culturelle) 1 each GT DAILY [facility] Stop: 11/13/17 12:59 Last Admin: 09/18/17 08:40 Dose: 1 each Lactulose (Cephulac) 10 gm GT Q12HR PRN PRN Reason: CONSTIPATION Losartan Potassium (Cozaar) 100 mg GT DAILY [facility] Stop: 11/14/17 08:59 Last Admin: 09/17/17 09:05 Dose: Not Given Metoprolol Tartrate (Lopressor) 50 mg GT BID [facility] Stop: 11/13/17 16:59 Last Admin: 09/18/17 08:41 Dose: 50 mg Miscellaneous (Vancomycin Iv Per Pharmacy) 1 ea MC PRN [facility] Stop: 11/13/17 13:29 Miscellaneous (Amikacin Iv Per Pharmacy) 1 [facility] PRN PRN PRN Reason: PROTOCOL Stop: 11/13/17 15:02 Miscellaneous (Probiotic Screen) 1 [facility] PRN PRN PRN Reason: PROTOCOL Stop: 11/15/17 11:35 Morphine Sulfate (Morphine) 2 mg IVP Q4H PRN PRN Reason: Pain (Severe) Stop: 11/13/17 09:45 Last Admin: 09/18/17 07:34 Dose: 2 mg Morphine Sulfate (Morphine) 2 mg IVP Q6HR PRN PRN Reason: PAIN Last Admin: 09/17/17 22:21 Dose: 2 mg Multivitamins/Vitamin C (Theragran) 1 tab GT DAILY [facility] Stop: 11/14/17 08:59 Last Admin: 09/18/17 08:41 Dose: 1 tab Ondansetron HCl (Zofran) 4 mg IV Q8H PRN PRN Reason: Nausea / Vomiting Stop: 11/13/17 09:45 Last Admin: 09/17/17 22:19 Dose: 4 mg - Procedures Procedures: Procedures Procedure Code Date BYPASS ASCENDING COLON TO CUTANEOUS, OPEN APPROACH [id number] 09/14/17 COLOSTOMY 52569 09/14/17 [place] BONE 20 SQ CM/< [id number] 09/14/17 [place] SUBQ TISSUE 20 SQ CM/< [id number] 09/14/17 EXCISION OF BACK SUBCU/FASCIA, OPEN APPROACH [id number] 09/14/17 EXCISION OF SACRUM, OPEN APPROACH [id number] 09/14/17 RESPIRATORY VENTILATION, 24-96 CONSECUTIVE HOURS [id number] 09/14/17 Nutritional Asmnt/Malnutr-PDOC - Dietary Evaluation Malnutrition Findings (Please click <Entered> for more info): Nutritional Asmnt/Malnutrition Start: 09/15/17 12: 18 Text: Status: Complete Freq: Document 09/15/17 12:18 MMULHERN (Rec: 09/15/17 12:29 [email or web address] [email or web address]- [id number]) Nutritional Asmnt/Malnutrition Patient General Information Nutritional Screening High Risk Screening Diagnosis sacrum wound Pertinent Medical Hx/Surgical Hx ESRD on HD, CAD, hyperlipidemia, type 2 diabetes, dementia, atrial flutter, CHF, peripheral arterial disease, Clostridium difficile colitis, cervical 2- 3 fracture and contusion, small hematoma in the cervical . Subjective Information Per nursing notes, patient with multiple pressure wounds, 09/14 had surgery for diverting colostomy and wound vac appliaction. Patient remains intubated. Patient receiving hemodialysis at time of visit. G tube to low intermitent suction. Noted that patient is likely not 6'6 " tall as noted in chart. Patient appears smaller, maybe 66". Patient with severeal temporal wasting. Current Diet Order/ Nutrition Support NPO Patient / S.O Not Indicated Pertinent Medications maalox, D5-0.9% NS @ 80ml/hr, pepcid, folate, novolog, culturelle, lactulose, cozaar, reglan, vancomycin, theragran , zofran Pertinent Labs (09/15) Na 133, K 5.1, BUN 115 , Cr 4.9 (HD patient), Glucose 128-233, HGA1C 6.5, alkaline phosphatase 238, BNP 4140, albumin 2.3 Nutritional Hx/Data Height 1.68 m Height (Calculated Centimeters) 167.6 Current Weight (lbs) 71.214 kg Weight (Calculated Kilograms) 71.2 Weight (Calculated Grams) 93025.0 [place] Body Weight 142 % [place] Body Weight 110 Weight Status Underweight GI Symptoms Difficult in: Swallowing Food Allergies No Cultural/Ethnic/[employer] Belief None indicated Usual diet at home unknown Skin Integrity/Comment: Cali 11, decubitus ulcer on left hip, right heel, right thigh, sacrum Current %PO intubated Estimated Nutritional Goals BEE in Kcals: Adj wt of IBW Calories/Kcals/Kg [place] body weight 64.5kg Kcals Calculated 3026-9494 kcal/day (25-30 kcal /kg) - intubated, HD, wounds Protein: Adj wt of IBW Protein g/kg: (1.5-2 gm/kg) - HD, wounds, I& D/wound vac Protein Calculated 95-130 gm/day Fluid: ml Per MD Dialysis Nutritional Problem 2. Problem Problem Altered nutrition related lab values related to Etiology renal dysfunction/ electrolyte imbalance aeb Signs/Symptoms: Na 133, K 5.1, BUN 115, Cr 4.9 (HD patient), Glucose 128-233 1. Problem Problem Increased nutrient needs related to Etiology impaired skin integrity/ hypermetabolic state aeb Signs/Symptoms: patient receives HD and has multiple decubitus ulcers, S/p wound vac application Intervention/Recommendation Comments 1. When medically appropriate, start tube feeding Novasource Renal with goal rate 40 ml/hr . This provides 960 ml volume, 1920 kcal, 87gm protein, 688 ml free water. Add Prosource 1 packet/day for an additional 15gm protein (102 gm/day total ). Expected Outcomes/Goals Expected Outcomes/Goals Patient receives nutrition within 48 hours, nutrition related labs normalize, weight remains stable or trends toward ideal body weight. F/U as HR 09/17-
[2017-09-18 09:30] LABS: BE(B) 4.8 mEq/L (-3.0-3.0); HCO3 28.7 mEq/L (20.0-26.0); pH 7.43 (7.35-7.45)
[2017-09-18 09:31] LABS: ABG SOURCE Arterial; ALLEN TEST YES; FIO2 35; PS 8
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
--- NOTE | 2017-09-18 12:35 | General Progress Note ---
Subjective - Review of Systems Service Date: 09/18/17 Events since last encounter: Had diverting colostomy. No pressors. Tolerated heodialysis yesterday with 2 L removed. ZOrally intubated. No distress noted by me at this time. also had debridemnt of sacral ulcer Objective - Results Result Diagrams: 09/18/17 05:10 09/18/17 05:10 Recent Labs: Laboratory Last Values WBC 15.2 Th/cmm (4.8-10.8) H D 09/18/17 05:10 RBC 2.77 Mil/cmm (3.80-5.80) L 09/18/17 05:10 Hgb 8.2 gm/dL (12-16) L 09/18/17 05:10 Hct 24.9 % (41.0-60) L 09/18/17 05:10 MCV 89.9 fl (80-99) 09/18/17 05:10 MCH 29.6 pg (27.0-31.0) 09/18/17 05:10 MCHC Differential 33.0 pg (28.0-36.0) 09/18/17 05:10 RDW 15.0 % (11.5-20.0) 09/18/17 05:10 Plt Count 275 Th/cmm (150-400) 09/18/17 05:10 MPV 8.3 fl 09/18/17 05:10 Neutrophils % [employer] 09/18/17 05:10 Band Neutrophils % 3 % (0-10) 09/18/17 05:10 Lymphocytes % [employer]OR 09/18/17 05:10 Monocytes % [employer] ADVISOR 09/18/17 05:10 Eosinophils % [employer]ING ADVISOR 09/18/17 05:10 Basophils % [employer]ING ADVISOR 09/18/17 05:10 Neutrophils (Manual) 78 % (40-80) 09/18/17 05:10 Lymphocytes 9 % (20-50) L 09/18/17 05:10 Monocytes 7 % (2-10) 09/18/17 05:10 Eosinophils 3 % (0-5) 09/18/17 05:10 Basophils 0 % (0-3) 09/17/17 05:45 Platelet Estimate ADEQUATE (NORMAL) 09/17/17 05:45 Platelet Morphology NORMAL (NORMAL) 09/17/17 05:45 Anisocytosis 1+ 09/15/17 06:39 RBC Morph Micro Appear NORMAL (NORMAL) 09/17/17 05:45 Specimen Source Arterial 09/18/17 09:12 Sample Site Right Radial 09/18/17 09:12 pH 7.43 (7.35-7.45) 09/18/17 09:12 pCO2 45.0 mmHg (35.0-45.0) 09/18/17 09:12 pO2 148.0 mmHg (80.0-100.0) H 09/18/17 09:12 HCO3 28.7 mEq/L (20.0-26.0) H 09/18/17 09:12 Base Excess 4.8 mEq/L (-3.0-3.0) H 09/18/17 09:12 O2 Saturation 99.0 % (92.0-100.0) 09/18/17 09:12 Willi Test YES 09/18/17 09:12 Vent Rate NA 09/18/17 09:12 Inspired O2 35 09/18/17 09:12 Tidal Volume NA 09/18/17 09:12 PEEP 5 09/18/17 09:12 Pressure (ins/psv/peep) 8 09/18/17 09:12 Critical Value JESSIE JOSE 09/18/17 09:12 Sodium 134 mEq/L (136-145) L 09/18/17 05:10 Potassium 3.6 mEq/L (3.5-5.1) 09/18/17 05:10 Chloride 100 mEq/L (98-107) 09/18/17 05:10 Carbon Dioxide 28.1 mEq/L (21.0-31.0) 09/18/17 05:10 Anion Gap 9.5 (7.0-16.0) 09/18/17 05:10 BUN 61 mg/dL (7-25) H 09/18/17 05:10 Creatinine 3.5 mg/dL (0.7-1.3) H 09/18/17 05:10 Est GFR ( Amer) TNP 09/18/17 05:10 Est GFR (Non-Af Amer) TNP 09/18/17 05:10 BUN/Creatinine Ratio 17.4 09/18/17 05:10 Glucose 188 mg/dL (70-105) H 09/18/17 05:10 POC Glucose 205 MG/DL (70 - 105) H 09/18/17 06:31 Hemoglobin A1c % 6.5 % (4.0-6.0) H 09/15/17 06:35 Calcium 8.4 mg/dL (8.6-10.3) L 09/18/17 05:10 Phosphorus 3.7 mg/dL (2.5-5.0) 09/15/17 06:39 Magnesium 2.5 mg/dL (1.9-2.7) 09/16/17 04:27 Total Bilirubin 0.5 mg/dL (0.3-1.0) 09/17/17 05:45 AST 17 U/L (13-39) 09/17/17 05:45 ALT 31 U/L (7-52) 09/17/17 05:45 Alkaline Phosphatase 215 U/L (34-104) H 09/17/17 05:45 Ammonia 40 umol/L (16-53) 09/16/17 04:27 B-Natriuretic Peptide 2040.0 pg/mL (5.0-100.0) H 09/18/17 05:10 Total Protein 5.8 gm/dL (6.0-8.3) L 09/17/17 05:45 Albumin 2.2 gm/dL (4.2-5.5) L 09/17/17 05:45 Globulin 3.6 gm/dL 09/17/17 05:45 Albumin/Globulin Ratio 0.6 (1.0-1.8) L 09/17/17 05:45 Vitamin B12 >1999 pg/mL (211-946) H 09/16/17 04:27 Folic Acid >20.0 ng/mL (>3.0) 09/16/17 04:27 Random Amikacin 10.7 ug/ml (1.0-30.0) 09/15/17 16:54 Random Vancomycin 22.8 ug/mL (5.0-40.0) 09/18/17 05:10 Hepatitis A IgM Ab Negative (Negative) 09/15/17 13:00 Hep Bs Antigen Negative (Negative) 09/15/17 13:00 Hep B Core IgM Ab Negative (Negative) 09/15/17 13:00 Hepatitis C Antibody 0.2 s/co ratio (0.0-0.9) 09/15/17 13:00 - Physical Exam Vitals and I&O: Vital Signs Temp 98.9 F 09/18/17 11:00 Pulse 70 09/18/17 11:07 Resp 14 09/18/17 11:00 BP 130/64 09/18/17 11:00 Pulse Ox 100 09/18/17 11:07 Intake & Output 09/17/17 09/18/17 09/18/17 18:59 06:59 18:59 Intake Total 694 Output Total 2070 100 Balance -1376 -100 Weight (lbs) 72.575 kg 72.575 kg Intake: Intake, IV Amount 444 D5-0.9%Ns 1,000 ml @ 40 344 mls/hr IV .Q24H [facility] Rx#: [id number] Meropenem 500 mg In 100 Sodium Chloride 0.9% 100 ml @ 100 mls/hr IV Q12H [facility] Rx#:[id number] Tube Feeding 250 Output: Stool 70 Other 2000 100 Other: Stool Characteristics Liquid Active Medications: Current Medications Acetaminophen (Tylenol) 650 mg PO Q4H PRN PRN Reason: Pain Or Fever above 101 Stop: 11/13/17 09:45 Acetaminophen/Hydrocodone Bitart ([place] 5mg/325mg) 1 tab PO Q4H PRN PRN Reason: Pain (Severe) Stop: 11/13/17 09:45 Acetaminophen/Hydrocodone Bitart ([place] 5mg/325mg) 1 tab GT Q6HR PRN PRN Reason: Pain (Mild) Stop: 11/13/17 11:00 Al Hydrox/Mg Hydrox/Simethicone (Maalox) 30 ml PO Q6H PRN PRN Reason: Dyspepsia Stop: 11/13/17 09:45 Albuterol Sulfate (Albuterol 2.5mg/3ml Neb Ud) 2.5 mg HHN Q2HRT PRN PRN Reason: Shortness of Breath or Wheeze Stop: 11/13/17 09:45 Albuterol Sulfate (Albuterol 2.5mg/3ml Neb Ud) 2.5 mg HHN QIDRT MAGI Stop: 11/13/17 14:59 Last Admin: 09/18/17 11:11 Dose: 2.5 mg Atropine Sulfate (Atropine) 1 mg IVP Q4HR PRN PRN Reason: BRADYCARDIA Stop: 11/13/17 11:00 Budesonide (Pulmicort) 0.5 mg HHN BIDRT [facility] Stop: 11/14/17 18:59 Last Admin: 09/18/17 08:05 Dose: 0.5 mg Chlorhexidine Gluconate (Peridex) 15 ml MM 08,1999 [facility] Stop: 11/13/17 19:59 Last Admin: 09/18/17 08:44 Dose: 15 ml Epoetin Markus (Epogen) 5,000 units SUBQ MoWeFr [facility] Stop: 11/16/17 10:21 Last Admin: 09/17/17 16:55 Dose: 5,000 units Famotidine (Pepcid) 20 mg IVP Q12H [facility] Stop: 11/14/17 08:59 Last Admin: 09/18/17 08:40 Dose: 20 mg Folic Acid (Folate) 1 mg GT DAILY [facility] Stop: 11/14/17 08:59 Last Admin: 09/18/17 08:41 Dose: 1 mg Heparin Sodium (Porcine) (Heparin) 5,000 units SUBQ Q12HR [facility] Stop: 11/14/17 20:59 Last Admin: 09/18/17 08:40 Dose: 5,000 units Hydrochlorothiazide (Hctz) 25 mg GT DAILY [facility] Stop: 11/14/17 08:59 Last Admin: 09/18/17 08:41 Dose: 25 mg Meropenem 500 mg/ Sodium (Chloride) 100 mls @ 100 mls/hr IV Q12H [facility] Stop: 11/13/17 16:59 Last Admin: 09/18/17 06:00 Dose: 100 mls/hr Dextrose/Sodium Chloride (D5-0.9%Ns) 1,000 mls @ 40 mls/hr IV .Q24H [facility] Stop: 11/13/17 09:59 Last Admin: 09/17/17 14:46 Dose: 40 mls/hr Albumin Human (Albutein 25%) 12.5 gm in 50 mls @ 50 mls/hr IV TELMA PRN PRN Reason: BP Support During HD Stop: 11/16/17 00:00 Vancomycin HCl 1 gm/ Sodium (Chloride) 250 mls @ 165 mls/hr IV ONCE ONE Stop: 09/18/17 15:30 Insulin Aspart (Novolog) 0 units SUBQ ACHS MAGI PRN Reason: Protocol Stop: 11/13/17 11:29 Last Admin: 09/18/17 11:41 Dose: Not Given Ipratropium [place] (Atrovent Neb 0.5mg/2.5ml) 0.5 mg IH Q2HRT PRN PRN Reason: Shortness of Breath or Wheeze Stop: 11/13/17 09:45 Ipratropium [place] (Atrovent Neb 0.5mg/2.5ml) 0.5 mg IH QIDRT [facility] Stop: 11/13/17 14:59 Last Admin: 09/18/17 11:11 Dose: 0.5 mg Lactobacillus Rhamnosus (Culturelle) 1 each GT DAILY [facility] Stop: 11/13/17 12:59 Last Admin: 09/18/17 08:40 Dose: 1 each Lactulose (Cephulac) 10 gm GT Q12HR PRN PRN Reason: CONSTIPATION Losartan Potassium (Cozaar) 100 mg GT DAILY [facility] Stop: 11/14/17 08:59 Last Admin: 09/18/17 09:00 Dose: Not Given Metoprolol Tartrate (Lopressor) 50 mg GT BID [facility] Stop: 11/13/17 16:59 Last Admin: 09/18/17 08:41 Dose: 50 mg Miscellaneous (Vancomycin Iv Per Pharmacy) 1 ea MC PRN [facility] Stop: 11/13/17 13:29 Miscellaneous (Amikacin Iv Per Pharmacy) 1 ea PRN PRN PRN Reason: PROTOCOL Stop: 11/13/17 15:02 Miscellaneous (Probiotic Screen) 1 ea PRN PRN PRN Reason: PROTOCOL Stop: 11/15/17 11:35 Morphine Sulfate (Morphine) 2 mg IVP Q4H PRN PRN Reason: Pain (Severe) Stop: 11/13/17 09:45 Last Admin: 09/18/17 07:34 Dose: 2 mg Morphine Sulfate (Morphine) 2 mg IVP Q6HR PRN PRN Reason: PAIN Last Admin: 09/17/17 22:21 Dose: 2 mg Multivitamins/Vitamin C (Theragran) 1 tab GT DAILY MAGI Stop: 11/14/17 08:59 Last Admin: 09/18/17 08:41 Dose: 1 tab Ondansetron HCl (Zofran) 4 mg IV Q8H PRN PRN Reason: Nausea / Vomiting Stop: 11/13/17 09:45 Last Admin: 09/17/17 22:19 Dose: 4 mg General: Other (obtunded. Orally intubated ) HEENT: Atraumatic, Other (Orall intubated.) Neck: Supple Cardiovascular: Regular rate Lungs: Clear to auscultation Abdomen: Soft, Other (G tube in place) Extremities: Other (Left arm AVF with good bruit) - Procedures Procedures: Procedures Procedure Code Date BYPASS ASCENDING COLON TO CUTANEOUS, OPEN APPROACH [id number] 09/14/17 COLOSTOMY 23320 09/14/17 [place] BONE 20 SQ CM/< [id number] 09/14/17 [place] SUBQ TISSUE 20 SQ CM/< [id number] 09/14/17 EXCISION OF BACK SUBCU/FASCIA, OPEN APPROACH [id number] 09/14/17 EXCISION OF SACRUM, OPEN APPROACH [id number] 09/14/17 RESPIRATORY VENTILATION, 24-96 CONSECUTIVE HOURS [id number] 09/14/17 Assessment/Plan - Assessment Assessment: Respiratory Failure: Stable. Monitor, wean and extubate ESRD/ Dialysis Status: Stable. For dialysis tomorrow HTN: Controlled. Monitor C Difficile Colits: Stable. Continue with isolation DM: Stable. Moniktor blood sugars Decubitis Ulcer: Stable. s/p debiridement and diverting colostomy to promote healing PVD: stable. Monitor Anemia: On EPOGEN. Stable. Check iron and iron sat. Monitor CBC, transfuse as indicated with PRBC Nutritional Asmnt/Malnutr-PDOC - Dietary Evaluation Malnutrition Findings (Please click <Entered> for more info): Nutritional Asmnt/Malnutrition Start: 09/15/17 12: 18 Text: Status: Complete Freq: Document 09/15/17 12:18 MMULHERN (Rec: 09/15/17 12:29 [email or web address] [email or web address]- [id number]) Nutritional Asmnt/Malnutrition Patient General Information Nutritional Screening High Risk Screening Diagnosis sacrum wound Pertinent Medical Hx/Surgical Hx ESRD on HD, CAD, hyperlipidemia, type 2 diabetes, dementia, atrial flutter, CHF, peripheral arterial disease, Clostridium difficile colitis, cervical 2- 3 fracture and contusion, small hematoma in the cervical . Subjective Information Per nursing notes, patient with multiple pressure wounds, 09/14 had surgery for diverting colostomy and wound vac appliaction. Patient remains intubated. Patient receiving hemodialysis at time of visit. G tube to low intermitent suction. Noted that patient is likely not 6'6 " tall as noted in chart. Patient appears smaller, maybe 66". Patient with severeal temporal wasting. Current Diet Order/ Nutrition Support NPO Patient / S.O Not Indicated Pertinent Medications maalox, D5-0.9% NS @ 80ml/hr, pepcid, folate, novolog, culturelle, lactulose, cozaar, reglan, vancomycin, theragran , zofran Pertinent Labs (09/15) Na 133, K 5.1, BUN 115 , Cr 4.9 (HD patient), Glucose 128-233, HGA1C 6.5, alkaline phosphatase 238, BNP 4140, albumin 2.3 Nutritional Hx/Data Height 1.68 m Height (Calculated Centimeters) 167.6 Current Weight (lbs) 71.214 kg Weight (Calculated Kilograms) 71.2 Weight (Calculated Grams) 62875.0 [place] Body Weight 142 % [place] Body Weight 110 Weight Status Underweight GI Symptoms Difficult in: Swallowing Food Allergies No Cultural/Ethnic/Adventism Belief None indicated Usual diet at home unknown Skin Integrity/Comment: Cali 11, decubitus ulcer on left hip, right heel, right thigh, sacrum Current %PO intubated Estimated Nutritional Goals BEE in Kcals: Adj wt of IBW Calories/Kcals/Kg [place] body weight 64.5kg Kcals Calculated 1675-3580 kcal/day (25-30 kcal /kg) - intubated, HD, wounds Protein: Adj wt of IBW Protein g/kg: (1.5-2 gm/kg) - HD, wounds, I& D/wound vac Protein Calculated 95-130 gm/day Fluid: ml Per MD Dialysis Nutritional Problem 2. Problem Problem Altered nutrition related lab values related to Etiology renal dysfunction/ electrolyte imbalance aeb Signs/Symptoms: Na 133, K 5.1, BUN 115, Cr 4.9 (HD patient), Glucose 128-233 1. Problem Problem Increased nutrient needs related to Etiology impaired skin integrity/ hypermetabolic state aeb Signs/Symptoms: patient receives HD and has multiple decubitus ulcers, S/p wound vac application Intervention/Recommendation Comments 1. When medically appropriate, start tube feeding Novasource Renal with goal rate 40 ml/hr . This provides 960 ml volume, 1920 kcal, 87gm protein, 688 ml free water. Add Prosource 1 packet/day for an additional 15gm protein (102 gm/day total ). Expected Outcomes/Goals Expected Outcomes/Goals Patient receives nutrition within 48 hours, nutrition related labs normalize, weight remains stable or trends toward ideal body weight. F/U as HR 09/17-
--- NOTE | 2017-09-18 12:49 | Diagnostic Imaging Report ---
CHEST X-RAY: AP view INDICATION: Shortness of breath COMPARISON: 09/14/2017 FINDINGS: ET tube is seen with tip 6.5 cm above the josé miguel. Right PICC line is stable. Congestive changes are seen with small pleural effusions and bibasal infiltrates. Heart is borderline prominent. IMPRESSION: Persistent congestive changes and small bilateral effusions and bibasal infiltrates. ET tube with tip 6.5 cm above the José Miguel.
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
[2017-09-18] MEDS: D5-0.9%NS 1,000 ML IV SCH (14:51)
--- NOTE | 2017-09-18 15:21 | Pathology Report ---
[id number] Collection Date: 09/14/2017 Surgeon: Dr. Timothy Alfonso Specimen Description: Debridement of sacral decubitus Gross Description: Received in formalin are two portions of degenerated grayish tissue measuring 1.1 and 1.7 cm in greatest dimension. Sectioning shows necrotic soft tissue. Architectural Technician sections are submitted in one cassette. Microscopic Description: The histologic sections show ulcerated necrotic skin and soft tissue with large collections of inflammatory cells present, consisting of neutrophils. Diagnosis: Ulcerated necrotic tissue consistent with debridement, sacral decubitus. [facility]# [id number]
--- NOTE | 2017-09-18 15:26 | Pathology Report ---
[id number] Collection Date: 09/17/2017 Surgeon: Dr. Timothy Alfonso Specimen Description: Debrided tissue, right hip Gross Description: Received in formalin are three irregular portions of ulcerated lawrence-lewis tissue ranging from 2.5 to 4.5 cm in greatest dimension. Sectioning shows ulcerated, necrotic soft tissue. Pick Out Hand sections are submitted in one cassette. Microscopic Description: The histologic sections show ulcerated, necrotic soft tissue with extensive suppurative inflammation present, consisting of large collections of neutrophils within a necrotic background. Diagnosis: Ulcerated, necrotic tissue consistent with debridement, right hip. JOB# [id number]
--- NOTE | 2017-09-19 00:40 | Progress Notes ---
DATE: 09/18/2017 PROBLEM LIST: 1. Postoperative respiratory failure, diverting colostomy. 2. Hip debridement. 3. History of chronic renal failure, on hemodialysis. 4. Status post coronary artery disorder, status post bypass surgery. SYMPTOMS: Nil. The patient is sleepy, arousable, opens eyes to formation and stimulation. No respiratory distress. Currently on the CPAP with pressor support. PHYSICAL EXAMINATION: VITAL SIGNS: Temperature is 98.9, blood pressure 130/60, saturation 100% on 35% of oxygen. NECK: Veins not visualized. CHEST: Shows diminished air entry with occasional secretory noise. ABDOMEN: Shows colostomy tube, otherwise unremarkable. LABORATORY DATA: Shows white count is 15,000, hemoglobin 8.2, ABG on 35% of oxygen, pO2 is 148. Electrolytes are okay except for BUN and creatinine. ASSESSMENT: The patient clinically doing much better. Postoperative second day, second hip debridement with underlying history of slight fluid overload with chronic renal failure, on hemodialysis. PLANS AND SUGGESTIONS: We will go ahead and extubate today. We will give p.r.n. BiPAP daytime and regular night time. We will see how he does in the next 24-48 hours and go from there. JOB# [id number]
[2017-09-19 04:52] LABS: HEMOGLOBIN 8.2 gm/dL (12-16)
[2017-09-19 05:07] LABS: ANION GAP 12.7 (7.0-16.0); BUN - UREA NITROGEN 69 mg/dL (7-25); BUN/CREATININE RATIO 17.3; CALCIUM SERUM 8.5 mg/dL (8.6-10.3); CARBON DIOXIDE 24.3 mEq/L (21.0-31.0); CHLORIDE 100 mEq/L (98-107); GLUCOSE 243 mg/dL (70-105); SODIUM SERUM 133 mEq/L (136-145)
[2017-09-19 05:08] LABS: HEMATOCRIT 24.5 % (41.0-60); MEAN CELL VOLUME 89.9 fl (80-99); MEAN CORPUSCULAR HEMOGLOBIN 29.9 pg (27.0-31.0); MEAN CORPUSCULAR HGB CONC 33.3 pg (28.0-36.0); MEAN PLATELET VOLUME 8.3 fl; PLATELET COUNT 237 Th/cmm (150-400); RED BLOOD COUNT 2.72 Mil/cmm (3.80-5.80); RED CELL DISTRIBUTION WIDTH 15.5 % (11.5-20.0)
[2017-09-19] MEDS: Meropenem 500 MG in Sodium Chloride 0.9% 100 ML IV SCH ×2 (05:08→17:24)
[2017-09-19 05:20] LABS: WHITE BLOOD COUNT 16.4 Th/cmm (4.8-10.8)
[2017-09-19 06:03] LABS: BAND NEUTROPHILE 3 % (0-10); EOSINOPHIL 4 % (0-5); NEUTROPHILS 84 % (40-80); TOTAL CELLS COUNTED 100
[2017-09-19] MEDS: INSULIN ASPART, RECOMBINANT 100 UNITS/ML SUBQ SCH ×4 (06:47→20:25)
[2017-09-19] MEDS: Albuterol Nebulizer 2.5mg/3mL HHN SCH ×4 (07:44→18:37)
[2017-09-19] MEDS: Ipratropium Neb 0.5 mg/2.5 mL UD IH SCH ×4 (07:44→18:37)
[2017-09-19] MEDS: Budesonide 0.5 Mg/2 mL Ud HHN SCH ×2 (07:45→18:37)
--- NOTE | 2017-09-19 08:54 | Diagnostic Imaging Report ---
Portable chest x-ray HISTORY: Shortness of breath Compared with the prior exam of September 18, 2017, there is persistent density within the left lower hemithorax suggesting a pleural effusion. Underlying consolidation and/or atelectasis within the left lower lobe cannot be excluded. Hazy bilateral perihilar changes noted. Mild edema cannot be excluded. No other change from the prior study. IMPRESSION: 1. Hazy bilateral perihilar changes. Findings associated with mild edema cannot be excluded. Clinical correlation is needed. 2. Evidence of persistent small bilateral pleural effusions (left greater than right). Underlying consolidation and/or atelectasis within the left lower lobe cannot be excluded.
[2017-09-19] MEDS: Multivitamin Tab GT SCH (09:00)
[2017-09-19 09:53] LABS: pH 7.51 (7.35-7.45)
[2017-09-19 09:54] LABS: HCO3 23.2 mEq/L (20.0-26.0)
[2017-09-19 09:55] LABS: ABG SOURCE Arterial; ALLEN TEST YES; BE(B) -2.3 mEq/L (-3.0-3.0); FIO2 32
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
--- NOTE | 2017-09-19 14:20 | General Progress Note ---
Subjective - Review of Systems Service Date: 09/19/17 Events since last encounter: incision clean for DC today Objective - Results Result Diagrams: 09/19/17 04:31 09/19/17 04:31 Recent Labs: Laboratory Last Values WBC 16.4 Th/cmm (4.8-10.8) H 09/19/17 04:31 RBC 2.72 Mil/cmm (3.80-5.80) L 09/19/17 04:31 Hgb 8.2 gm/dL (12-16) L 09/19/17 04:31 Hct 24.5 % (41.0-60) L 09/19/17 04:31 MCV 89.9 fl (80-99) 09/19/17 04:31 MCH 29.9 pg (27.0-31.0) 09/19/17 04:31 MCHC Differential 33.3 pg (28.0-36.0) 09/19/17 04:31 RDW 15.5 % (11.5-20.0) 09/19/17 04:31 Plt Count 237 Th/cmm (150-400) 09/19/17 04:31 MPV 8.3 fl 09/19/17 04:31 Neutrophils % EDUCATION REP 09/18/17 05:10 Band Neutrophils % 3 % (0-10) 09/19/17 04:31 Lymphocytes % EDUCATION REP 09/18/17 05:10 Monocytes % EDUCATION REP 09/18/17 05:10 Eosinophils % EDUCATION REP 09/18/17 05:10 Basophils % EDUCATION REP 09/18/17 05:10 Neutrophils (Manual) 84 % (40-80) H 09/19/17 04:31 Lymphocytes 8 % (20-50) L 09/19/17 04:31 Monocytes 1 % (2-10) L 09/19/17 04:31 Eosinophils 4 % (0-5) 09/19/17 04:31 Basophils 0 % (0-3) 09/17/17 05:45 Platelet Estimate ADEQUATE (NORMAL) 09/17/17 05:45 Platelet Morphology NORMAL (NORMAL) 09/17/17 05:45 Anisocytosis 1+ 09/15/17 06:39 RBC Morph Micro Appear NORMAL (NORMAL) 09/17/17 05:45 Specimen Source Arterial 09/19/17 09:45 Sample Site Right Radial 09/19/17 09:45 pH 7.51 (7.35-7.45) H 09/19/17 09:45 pCO2 24.0 mmHg (35.0-45.0) L* 09/19/17 09:45 pO2 111.0 mmHg (80.0-100.0) H 09/19/17 09:45 HCO3 23.2 mEq/L (20.0-26.0) 09/19/17 09:45 Base Excess -2.3 mEq/L (-3.0-3.0) 09/19/17 09:45 O2 Saturation 99.0 % (92.0-100.0) 09/19/17 09:45 Willi Test YES 09/19/17 09:45 Vent Rate NA 09/19/17 09:45 Inspired O2 32 09/19/17 09:45 Tidal Volume NA 09/19/17 09:45 PEEP NA 09/19/17 09:45 Pressure (ins/psv/peep) NA 09/19/17 09:45 Critical Value DAVIDA S 09/19/17 09:45 Sodium 133 mEq/L (136-145) L 09/19/17 04:31 Potassium 4.0 mEq/L (3.5-5.1) 09/19/17 04:31 Chloride 100 mEq/L (98-107) 09/19/17 04:31 Carbon Dioxide 24.3 mEq/L (21.0-31.0) 09/19/17 04:31 Anion Gap 12.7 (7.0-16.0) 09/19/17 04:31 BUN 69 mg/dL (7-25) H 09/19/17 04:31 Creatinine 4.0 mg/dL (0.7-1.3) H 09/19/17 04:31 Est GFR ( Amer) TNP 09/19/17 04:31 Est GFR (Non-Af Amer) TNP 09/19/17 04:31 BUN/Creatinine Ratio 17.3 09/19/17 04:31 Glucose 243 mg/dL (70-105) H 09/19/17 04:31 POC Glucose 226 MG/DL (70 - 105) H 09/19/17 11:19 Hemoglobin A1c % 6.5 % (4.0-6.0) H 09/15/17 06:35 Calcium 8.5 mg/dL (8.6-10.3) L 09/19/17 04:31 Phosphorus 3.7 mg/dL (2.5-5.0) 09/15/17 06:39 Magnesium 2.5 mg/dL (1.9-2.7) 09/16/17 04:27 Total Bilirubin 0.5 mg/dL (0.3-1.0) 09/17/17 05:45 AST 17 U/L (13-39) 09/17/17 05:45 ALT 31 U/L (7-52) 09/17/17 05:45 Alkaline Phosphatase 215 U/L (34-104) H 09/17/17 05:45 Ammonia 40 umol/L (16-53) 09/16/17 04:27 B-Natriuretic Peptide 2040.0 pg/mL (5.0-100.0) H 09/18/17 05:10 Total Protein 5.8 gm/dL (6.0-8.3) L 09/17/17 05:45 Albumin 2.2 gm/dL (4.2-5.5) L 09/17/17 05:45 Globulin 3.6 gm/dL 09/17/17 05:45 Albumin/Globulin Ratio 0.6 (1.0-1.8) L 09/17/17 05:45 Vitamin B12 >1999 pg/mL (211-946) H 09/16/17 04:27 Folic Acid >20.0 ng/mL (>3.0) 09/16/17 04:27 Random Amikacin 10.7 ug/ml (1.0-30.0) 09/15/17 16:54 Random Vancomycin 28.3 ug/mL (5.0-40.0) 09/19/17 04:31 Hepatitis A IgM Ab Negative (Negative) 09/15/17 13:00 Hep Bs Antigen Negative (Negative) 09/15/17 13:00 Hep B Core IgM Ab Negative (Negative) 09/15/17 13:00 Hepatitis C Antibody 0.2 s/co ratio (0.0-0.9) 09/15/17 13:00 - Physical Exam Vitals and I&O: Vital Signs Temp 98.1 F 09/19/17 04:00 Pulse 81 09/19/17 10:40 Resp 15 09/19/17 10:40 BP 145/54 09/19/17 07:00 Pulse Ox 100 09/19/17 10:40 Intake & Output 09/18/17 09/19/17 09/19/17 18:59 06:59 18:59 Intake Total 5316.974 8691 Output Total 40 Balance 9045.978 1823 Weight (lbs) 72.575 kg 72.575 kg Intake: Intake, IV Amount 1089.333 732 D5-0.9%Ns 1,000 ml @ 40 889.333 632 mls/hr IV .Q24H [facility] Rx#: [id number] Meropenem 500 mg In 200 100 Sodium Chloride 0.9% 100 ml @ 100 mls/hr IV Q12H [facility] Rx#:[id number] Tube Feeding 550 600 Other 150 Output: Drainage 40 wound vaccum 40 Stool 0 Other: Stool Characteristics Liquid Liquid Liquid Active Medications: Current Medications Acetaminophen (Tylenol) 650 mg PO Q4H PRN PRN Reason: Pain Or Fever above 101 Stop: 11/13/17 09:45 Acetaminophen/Hydrocodone Bitart ([place] 5mg/325mg) 1 tab PO Q4H PRN PRN Reason: Pain (Severe) Stop: 11/13/17 09:45 Last Admin: 09/18/17 21:03 Dose: 1 tab Acetaminophen/Hydrocodone Bitart ([place] 5mg/325mg) 1 tab GT Q6HR PRN PRN Reason: Pain (Mild) Stop: 11/13/17 11:00 Al Hydrox/Mg Hydrox/Simethicone (Maalox) 30 ml PO Q6H PRN PRN Reason: Dyspepsia Stop: 11/13/17 09:45 Albuterol Sulfate (Albuterol 2.5mg/3ml Neb Ud) 2.5 mg HHN Q2HRT PRN PRN Reason: Shortness of Breath or Wheeze Stop: 11/13/17 09:45 Albuterol Sulfate (Albuterol 2.5mg/3ml Neb Ud) 2.5 mg HHN QIDRT [facility] Stop: 11/13/17 14:59 Last Admin: 09/19/17 10:39 Dose: 2.5 mg Atropine Sulfate (Atropine) 1 mg IVP Q4HR PRN PRN Reason: BRADYCARDIA Stop: 11/13/17 11:00 Budesonide (Pulmicort) 0.5 mg HHN BIDRT [facility] Stop: 11/14/17 18:59 Last Admin: 09/19/17 07:45 Dose: 0.5 mg Epoetin Markus (Epogen) 5,000 units SUBQ MoWeFr [facility] Stop: 11/16/17 10:21 Last Admin: 09/17/17 16:55 Dose: 5,000 units Famotidine (Pepcid) 20 mg IVP Q12H [facility] Stop: 11/14/17 08:59 Last Admin: 09/18/17 21:03 Dose: 20 mg Folic Acid (Folate) 1 mg GT DAILY [facility] Stop: 11/14/17 08:59 Last Admin: 09/18/17 08:41 Dose: 1 mg Heparin Sodium (Porcine) (Heparin) 5,000 units SUBQ Q12HR [facility] Stop: 11/14/17 20:59 Last Admin: 09/18/17 21:04 Dose: 5,000 units Hydrochlorothiazide (Hctz) 25 mg GT DAILY [facility] Stop: 11/14/17 08:59 Last Admin: 09/18/17 08:41 Dose: 25 mg Meropenem 500 mg/ Sodium (Chloride) 100 mls @ 100 mls/hr IV Q12H [facility] Stop: 11/13/17 16:59 Last Infusion: 09/19/17 06:39 Dose: Infused Dextrose/Sodium Chloride (D5-0.9%Ns) 1,000 mls @ 40 mls/hr IV .Q24H [facility] Stop: 11/13/17 09:59 Last Infusion: 09/19/17 06:39 Dose: 40 mls/hr Albumin Human (Albutein 25%) 12.5 gm in 50 mls @ 50 mls/hr IV TELMA PRN PRN Reason: BP Support During HD Stop: 11/16/17 00:00 Vancomycin HCl 1.25 gm/ Sodium (Chloride) 250 mls @ 165 mls/hr IV ONCE ONE Stop: 09/20/17 09:30 Insulin Aspart (Novolog) 0 units SUBQ ACHS [facility] PRN Reason: Protocol Stop: 11/13/17 11:29 Last Admin: 09/19/17 11:25 Dose: 2 units Ipratropium [place] (Atrovent Neb 0.5mg/2.5ml) 0.5 mg IH Q2HRT PRN PRN Reason: Shortness of Breath or Wheeze Stop: 11/13/17 09:45 Ipratropium [place] (Atrovent Neb 0.5mg/2.5ml) 0.5 mg IH QIDRT [facility] Stop: 11/13/17 14:59 Last Admin: 09/19/17 10:39 Dose: 0.5 mg Lactobacillus Rhamnosus (Culturelle) 1 each GT DAILY [facility] Stop: 11/13/17 12:59 Last Admin: 09/18/17 08:40 Dose: 1 each Lactulose (Cephulac) 10 gm GT Q12HR PRN PRN Reason: CONSTIPATION Losartan Potassium (Cozaar) 100 mg GT DAILY [facility] Stop: 11/14/17 08:59 Last Admin: 09/18/17 09:00 Dose: Not Given Metoprolol Tartrate (Lopressor) 50 mg GT BID [facility] Stop: 11/13/17 16:59 Last Admin: 09/18/17 17:11 Dose: 50 mg Miscellaneous (Vancomycin Iv Per Pharmacy) 1 ea MC PRN [facility] Stop: 11/13/17 13:29 Miscellaneous (Amikacin Iv Per Pharmacy) 1 [facility] PRN PRN PRN Reason: PROTOCOL Stop: 11/13/17 15:02 Miscellaneous (Probiotic Screen) 1 ea PRN PRN PRN Reason: PROTOCOL Stop: 11/15/17 11:35 Morphine Sulfate (Morphine) 2 mg IVP Q4H PRN PRN Reason: Pain (Severe) Stop: 11/13/17 09:45 Last Admin: 09/18/17 14:51 Dose: 2 mg Morphine Sulfate (Morphine) 2 mg IVP Q6HR PRN PRN Reason: PAIN Last Admin: 09/17/17 22:21 Dose: 2 mg Multivitamins/Vitamin C (Theragran) 1 tab GT DAILY [facility] Stop: 11/14/17 08:59 Last Admin: 09/18/17 08:41 Dose: 1 tab Ondansetron HCl (Zofran) 4 mg IV Q8H PRN PRN Reason: Nausea / Vomiting Stop: 11/13/17 09:45 Last Admin: 09/17/17 22:19 Dose: 4 mg General: Other (obtunded. Orally intubated ) HEENT: Atraumatic, Other (Orall intubated.) Neck: Supple Cardiovascular: Regular rate Lungs: Clear to auscultation Abdomen: Soft, Other (G tube in place) Extremities: Other (Left arm AVF with good bruit) - Procedures Procedures: Procedures Procedure Code Date BYPASS ASCENDING COLON TO CUTANEOUS, OPEN APPROACH [id number] 09/14/17 COLOSTOMY 80632 09/14/17 LIN[place]OD BONE 20 SQ CM/< [id number] 09/14/17 [place] SUBQ TISSUE 20 SQ CM/< 94512 09/14/17 EXCISION OF BACK SUBCU/FASCIA, OPEN APPROACH [id number] 09/14/17 EXCISION OF SACRUM, OPEN APPROACH [id number] 09/14/17 RESPIRATORY VENTILATION, 24-96 CONSECUTIVE HOURS [id number] 09/14/17 Nutritional Asmnt/Malnutr-PDOC - Dietary Evaluation Malnutrition Findings (Please click <Entered> for more info): Nutritional Asmnt/Malnutrition Start: 09/15/17 12: 18 Text: Status: Complete Freq: Document 09/15/17 12:18 MMULHERN (Rec: 09/15/17 12:29 [facility]) Nutritional Asmnt/Malnutrition Patient General Information Nutritional Screening High Risk Screening Diagnosis sacrum wound Pertinent Medical Hx/Surgical Hx ESRD on HD, CAD, hyperlipidemia, type 2 diabetes, dementia, atrial flutter, CHF, peripheral arterial disease, Clostridium difficile colitis, cervical 2- 3 fracture and contusion, small hematoma in the cervical . Subjective Information Per nursing notes, patient with multiple pressure wounds, 09/14 had surgery for diverting colostomy and wound vac appliaction. Patient remains intubated. Patient receiving hemodialysis at time of visit. G tube to low intermitent suction. Noted that patient is likely not 6'6 " tall as noted in chart. Patient appears smaller, maybe 66". Patient with severeal temporal wasting. Current Diet Order/ Nutrition Support NPO Patient / S.O Not Indicated Pertinent Medications maalox, D5-0.9% NS @ 80ml/hr, pepcid, folate, novolog, culturelle, lactulose, cozaar, reglan, vancomycin, theragran , zofran Pertinent Labs (09/15) Na 133, K 5.1, BUN 115 , Cr 4.9 (HD patient), Glucose 128-233, HGA1C 6.5, alkaline phosphatase 238, BNP 4140, albumin 2.3 Nutritional Hx/Data Height 1.68 m Height (Calculated Centimeters) 167.6 Current Weight (lbs) 71.214 kg Weight (Calculated Kilograms) 71.2 Weight (Calculated Grams) 16479.0 [place] Body Weight 142 % [place] Body Weight 110 Weight Status Underweight GI Symptoms Difficult in: Swallowing Food Allergies No Cultural/Ethnic/Quaker Belief None indicated Usual diet at home unknown Skin Integrity/Comment: Cali 11, decubitus ulcer on left hip, right heel, right thigh, sacrum Current %PO intubated Estimated Nutritional Goals BEE in Kcals: Adj wt of IBW Calories/Kcals/Kg [place] body weight 64.5kg Kcals Calculated 5580-0302 kcal/day (25-30 kcal /kg) - intubated, HD, wounds Protein: Adj wt of IBW Protein g/kg: (1.5-2 gm/kg) - HD, wounds, I& D/wound vac Protein Calculated 95-130 gm/day Fluid: ml Per MD Dialysis Nutritional Problem 2. Problem Problem Altered nutrition related lab values related to Etiology renal dysfunction/ electrolyte imbalance aeb Signs/Symptoms: Na 133, K 5.1, BUN 115, Cr 4.9 (HD patient), Glucose 128-233 1. Problem Problem Increased nutrient needs related to Etiology impaired skin integrity/ hypermetabolic state aeb Signs/Symptoms: patient receives HD and has multiple decubitus ulcers, S/p wound vac application Intervention/Recommendation Comments 1. When medically appropriate, start tube feeding Novasource Renal with goal rate 40 ml/hr . This provides 960 ml volume, 1920 kcal, 87gm protein, 688 ml free water. Add Prosource 1 packet/day for an additional 15gm protein (102 gm/day total ). Expected Outcomes/Goals Expected Outcomes/Goals Patient receives nutrition within 48 hours, nutrition related labs normalize, weight remains stable or trends toward ideal body weight. F/U as HR 09/17-
[2017-09-19] MEDS ORDERED: Amikacin 250 mg in D5W 100mL IV ONE ×2 (16:00→17:00)
--- NOTE | 2017-09-19 16:01 | General Progress Note ---
Subjective - Review of Systems Service Date: 09/19/17 Events since last encounter: none awaiting dialysis then transfer to [facility] vent Subjective: none new Objective - Results Result Diagrams: 09/19/17 04:31 09/19/17 04:31 Recent Labs: Laboratory Last Values WBC 16.4 Th/cmm (4.8-10.8) H 09/19/17 04:31 RBC 2.72 Mil/cmm (3.80-5.80) L 09/19/17 04:31 Hgb 8.2 gm/dL (12-16) L 09/19/17 04:31 Hct 24.5 % (41.0-60) L 09/19/17 04:31 MCV 89.9 fl (80-99) 09/19/17 04:31 MCH 29.9 pg (27.0-31.0) 09/19/17 04:31 MCHC Differential 33.3 pg (28.0-36.0) 09/19/17 04:31 RDW 15.5 % (11.5-20.0) 09/19/17 04:31 Plt Count 237 Th/cmm (150-400) 09/19/17 04:31 MPV 8.3 fl 09/19/17 04:31 Neutrophils % [employer] TECH 09/18/17 05:10 Band Neutrophils % 3 % (0-10) 09/19/17 04:31 Lymphocytes % [employer] TECH 09/18/17 05:10 Monocytes % [employer] TECH 09/18/17 05:10 Eosinophils % [employer] TECH 09/18/17 05:10 Basophils % [employer] TECH 09/18/17 05:10 Neutrophils (Manual) 84 % (40-80) H 09/19/17 04:31 Lymphocytes 8 % (20-50) L 09/19/17 04:31 Monocytes 1 % (2-10) L 09/19/17 04:31 Eosinophils 4 % (0-5) 09/19/17 04:31 Basophils 0 % (0-3) 09/17/17 05:45 Platelet Estimate ADEQUATE (NORMAL) 09/17/17 05:45 Platelet Morphology NORMAL (NORMAL) 09/17/17 05:45 Anisocytosis 1+ 09/15/17 06:39 RBC Morph Micro Appear NORMAL (NORMAL) 09/17/17 05:45 Specimen Source Arterial 09/19/17 09:45 Sample Site Right Radial 09/19/17 09:45 pH 7.51 (7.35-7.45) H 09/19/17 09:45 pCO2 24.0 mmHg (35.0-45.0) L* 09/19/17 09:45 pO2 111.0 mmHg (80.0-100.0) H 09/19/17 09:45 HCO3 23.2 mEq/L (20.0-26.0) 09/19/17 09:45 Base Excess -2.3 mEq/L (-3.0-3.0) 09/19/17 09:45 O2 Saturation 99.0 % (92.0-100.0) 09/19/17 09:45 Willi Test YES 09/19/17 09:45 Vent Rate NA 09/19/17 09:45 Inspired O2 32 09/19/17 09:45 Tidal Volume NA 09/19/17 09:45 PEEP NA 09/19/17 09:45 Pressure (ins/psv/peep) NA 09/19/17 09:45 Critical Value DAVIDA S 09/19/17 09:45 Sodium 133 mEq/L (136-145) L 09/19/17 04:31 Potassium 4.0 mEq/L (3.5-5.1) 09/19/17 04:31 Chloride 100 mEq/L (98-107) 09/19/17 04:31 Carbon Dioxide 24.3 mEq/L (21.0-31.0) 09/19/17 04:31 Anion Gap 12.7 (7.0-16.0) 09/19/17 04:31 BUN 69 mg/dL (7-25) H 09/19/17 04:31 Creatinine 4.0 mg/dL (0.7-1.3) H 09/19/17 04:31 Est GFR ( Amer) TNP 09/19/17 04:31 Est GFR (Non-Af Amer) TNP 09/19/17 04:31 BUN/Creatinine Ratio 17.3 09/19/17 04:31 Glucose 243 mg/dL (70-105) H 09/19/17 04:31 POC Glucose 226 MG/DL (70 - 105) H 09/19/17 11:19 Hemoglobin A1c % 6.5 % (4.0-6.0) H 09/15/17 06:35 Calcium 8.5 mg/dL (8.6-10.3) L 09/19/17 04:31 Phosphorus 3.7 mg/dL (2.5-5.0) 09/15/17 06:39 Magnesium 2.5 mg/dL (1.9-2.7) 09/16/17 04:27 Total Bilirubin 0.5 mg/dL (0.3-1.0) 09/17/17 05:45 AST 17 U/L (13-39) 09/17/17 05:45 ALT 31 U/L (7-52) 09/17/17 05:45 Alkaline Phosphatase 215 U/L (34-104) H 09/17/17 05:45 Ammonia 40 umol/L (16-53) 09/16/17 04:27 B-Natriuretic Peptide 2040.0 pg/mL (5.0-100.0) H 09/18/17 05:10 Total Protein 5.8 gm/dL (6.0-8.3) L 09/17/17 05:45 Albumin 2.2 gm/dL (4.2-5.5) L 09/17/17 05:45 Globulin 3.6 gm/dL 09/17/17 05:45 Albumin/Globulin Ratio 0.6 (1.0-1.8) L 09/17/17 05:45 Vitamin B12 >1999 pg/mL (211-946) H 09/16/17 04:27 Folic Acid >20.0 ng/mL (>3.0) 09/16/17 04:27 Random Amikacin 10.7 ug/ml (1.0-30.0) 09/15/17 16:54 Random Vancomycin 28.3 ug/mL (5.0-40.0) 09/19/17 04:31 Hepatitis A IgM Ab Negative (Negative) 09/15/17 13:00 Hep Bs Antigen Negative (Negative) 09/15/17 13:00 Hep B Core IgM Ab Negative (Negative) 09/15/17 13:00 Hepatitis C Antibody 0.2 s/co ratio (0.0-0.9) 09/15/17 13:00 - Physical Exam Vitals and I&O: Vital Signs Temp 98.6 F 09/19/17 08:00 Pulse 79 09/19/17 14:27 Resp 13 09/19/17 14:27 BP 143/70 09/19/17 12:00 Pulse Ox 100 09/19/17 14:27 Intake & Output 09/18/17 09/19/17 09/19/17 18:59 06:59 18:59 Intake Total 5185.299 3819 Output Total 40 Balance 0175.532 1815 Weight (lbs) 72.575 kg 72.575 kg Intake: Intake, IV Amount 1089.333 732 D5-0.9%Ns 1,000 ml @ 40 889.333 632 mls/hr IV .Q24H [facility] Rx#: [id number] Meropenem 500 mg In 200 100 Sodium Chloride 0.9% 100 ml @ 100 mls/hr IV Q12H [facility] Rx#:[id number] Tube Feeding 550 600 Other 150 Output: Drainage 40 wound vaccum 40 Stool 0 Other: Stool Characteristics Liquid Liquid Liquid Active Medications: Current Medications Acetaminophen (Tylenol) 650 mg PO Q4H PRN PRN Reason: Pain Or Fever above 101 Stop: 11/13/17 09:45 Acetaminophen/Hydrocodone Bitart ([place] 5mg/325mg) 1 tab PO Q4H PRN PRN Reason: Pain (Severe) Stop: 11/13/17 09:45 Last Admin: 09/18/17 21:03 Dose: 1 tab Acetaminophen/Hydrocodone Bitart ([place] 5mg/325mg) 1 tab GT Q6HR PRN PRN Reason: Pain (Mild) Stop: 11/13/17 11:00 Al Hydrox/Mg Hydrox/Simethicone (Maalox) 30 ml PO Q6H PRN PRN Reason: Dyspepsia Stop: 11/13/17 09:45 Albuterol Sulfate (Albuterol 2.5mg/3ml Neb Ud) 2.5 mg HHN Q2HRT PRN PRN Reason: Shortness of Breath or Wheeze Stop: 11/13/17 09:45 Albuterol Sulfate (Albuterol 2.5mg/3ml Neb Ud) 2.5 mg HHN QIDRT MAGI Stop: 11/13/17 14:59 Last Admin: 09/19/17 14:31 Dose: 2.5 mg Atropine Sulfate (Atropine) 1 mg IVP Q4HR PRN PRN Reason: BRADYCARDIA Stop: 11/13/17 11:00 Budesonide (Pulmicort) 0.5 mg HHN BIDRT [facility] Stop: 11/14/17 18:59 Last Admin: 09/19/17 07:45 Dose: 0.5 mg Epoetin Markus (Epogen) 5,000 units SUBQ MoWeFr [facility] Stop: 11/16/17 10:21 Last Admin: 09/17/17 16:55 Dose: 5,000 units Famotidine (Pepcid) 20 mg IVP Q12H [facility] Stop: 11/14/17 08:59 Last Admin: 09/18/17 21:03 Dose: 20 mg Folic Acid (Folate) 1 mg GT DAILY [facility] Stop: 11/14/17 08:59 Last Admin: 09/18/17 08:41 Dose: 1 mg Heparin Sodium (Porcine) (Heparin) 5,000 units SUBQ Q12HR [facility] Stop: 11/14/17 20:59 Last Admin: 09/18/17 21:04 Dose: 5,000 units Hydrochlorothiazide (Hctz) 25 mg GT DAILY [facility] Stop: 11/14/17 08:59 Last Admin: 09/18/17 08:41 Dose: 25 mg Meropenem 500 mg/ Sodium (Chloride) 100 mls @ 100 mls/hr IV Q12H [facility] Stop: 11/13/17 16:59 Last Infusion: 09/19/17 06:39 Dose: Infused Dextrose/Sodium Chloride (D5-0.9%Ns) 1,000 mls @ 40 mls/hr IV .Q24H [facility] Stop: 11/13/17 09:59 Last Infusion: 09/19/17 06:39 Dose: 40 mls/hr Albumin Human (Albutein 25%) 12.5 gm in 50 mls @ 50 mls/hr IV TELMA PRN PRN Reason: BP Support During HD Stop: 11/16/17 00:00 Vancomycin HCl 1.25 gm/ Sodium (Chloride) 250 mls @ 165 mls/hr IV ONCE ONE Stop: 09/20/17 09:30 Amikacin Sulfate 300 mg/ (Dextrose) 101.2 mls @ 100 mls/hr IV Q24HR [facility] Stop: 11/18/17 18:59 Insulin Aspart (Novolog) 0 units SUBQ ACHS MAGI PRN Reason: Protocol Stop: 11/13/17 11:29 Last Admin: 09/19/17 11:25 Dose: 2 units Ipratropium [place] (Atrovent Neb 0.5mg/2.5ml) 0.5 mg IH Q2HRT PRN PRN Reason: Shortness of Breath or Wheeze Stop: 11/13/17 09:45 Ipratropium [place] (Atrovent Neb 0.5mg/2.5ml) 0.5 mg IH QIDRT [facility] Stop: 11/13/17 14:59 Last Admin: 09/19/17 14:31 Dose: 0.5 mg Lactobacillus Rhamnosus (Culturelle) 1 each GT DAILY [facility] Stop: 11/13/17 12:59 Last Admin: 09/18/17 08:40 Dose: 1 each Lactulose (Cephulac) 10 gm GT Q12HR PRN PRN Reason: CONSTIPATION Losartan Potassium (Cozaar) 100 mg GT DAILY [facility] Stop: 11/14/17 08:59 Last Admin: 09/18/17 09:00 Dose: Not Given Metoprolol Tartrate (Lopressor) 50 mg GT BID [facility] Stop: 11/13/17 16:59 Last Admin: 09/18/17 17:11 Dose: 50 mg Miscellaneous (Vancomycin Iv Per Pharmacy) 1 ea MC PRN [facility] Stop: 11/13/17 13:29 Miscellaneous (Amikacin Iv Per Pharmacy) 1 [facility] PRN PRN PRN Reason: PROTOCOL Stop: 11/13/17 15:02 Miscellaneous (Probiotic Screen) 1 ea PRN PRN PRN Reason: PROTOCOL Stop: 11/15/17 11:35 Morphine Sulfate (Morphine) 2 mg IVP Q4H PRN PRN Reason: Pain (Severe) Stop: 11/13/17 09:45 Last Admin: 09/18/17 14:51 Dose: 2 mg Morphine Sulfate (Morphine) 2 mg IVP Q6HR PRN PRN Reason: PAIN Last Admin: 09/17/17 22:21 Dose: 2 mg Multivitamins/Vitamin C (Theragran) 1 tab GT DAILY [facility] Stop: 11/14/17 08:59 Last Admin: 09/18/17 08:41 Dose: 1 tab Ondansetron HCl (Zofran) 4 mg IV Q8H PRN PRN Reason: Nausea / Vomiting Stop: 11/13/17 09:45 Last Admin: 09/17/17 22:19 Dose: 4 mg Physical Exam: arousable nad head nc/at sclerae anicteric neck in cervical collar cv rrr lungs cta b abd soft ntn+colostomy ext no edema General: Other (obtunded. Orally intubated ) HEENT: Atraumatic, Other (Orall intubated.) Neck: Supple Cardiovascular: Regular rate Lungs: Clear to auscultation Abdomen: Soft, Other (G tube in place) Extremities: Other (Left arm AVF with good bruit) - Procedures Procedures: Procedures Procedure Code Date BYPASS ASCENDING COLON TO CUTANEOUS, OPEN APPROACH [id number] 09/14/17 COLOSTOMY 18935 09/14/17 LIN[place]OD BONE 20 SQ CM/< 58210 09/14/17 [place] SUBQ TISSUE 20 SQ CM/< 62036 09/14/17 EXCISION OF BACK SUBCU/FASCIA, OPEN APPROACH [id number] 09/14/17 EXCISION OF SACRUM, OPEN APPROACH [id number] 09/14/17 RESPIRATORY VENTILATION, 24-96 CONSECUTIVE HOURS [id number] 09/14/17 Assessment/Plan - Assessment Assessment: esrd/dialysis status anemia with esrd sacral wound s/p excisional debridement diverting colostomy status new htn w [facility] pna - Plan Plan: dialysis sunday cont abx cont postopcare wean vent\\ epogen Nutritional Asmnt/Malnutr-PDOC - Dietary Evaluation Malnutrition Findings (Please click <Entered> for more info): Nutritional Asmnt/Malnutrition Start: 09/15/17 12: 18 Text: Status: Complete Freq: Document 09/15/17 12:18 MMULHERN (Rec: 09/15/17 12:29 MMULHERN LINDA STEWART) Nutritional Asmnt/Malnutrition Patient General Information Nutritional Screening High Risk Screening Diagnosis sacrum wound Pertinent Medical Hx/Surgical Hx ESRD on HD, CAD, hyperlipidemia, type 2 diabetes, dementia, atrial flutter, CHF, peripheral arterial disease, Clostridium difficile colitis, cervical 2- 3 fracture and contusion, small hematoma in the cervical . Subjective Information Per nursing notes, patient with multiple pressure wounds, 09/14 had surgery for diverting colostomy and wound vac appliaction. Patient remains intubated. Patient receiving hemodialysis at time of visit. G tube to low intermitent suction. Noted that patient is likely not 6'6 " tall as noted in chart. Patient appears smaller, maybe 66". Patient with severeal temporal wasting. Current Diet Order/ Nutrition Support NPO Patient / S.O Not Indicated Pertinent Medications maalox, D5-0.9% NS @ 80ml/hr, pepcid, folate, novolog, culturelle, lactulose, cozaar, reglan, vancomycin, theragran , zofran Pertinent Labs (09/15) Na 133, K 5.1, BUN 115 , Cr 4.9 (HD patient), Glucose 128-233, HGA1C 6.5, alkaline phosphatase 238, BNP 4140, albumin 2.3 Nutritional Hx/Data Height 1.68 m Height (Calculated Centimeters) 167.6 Current Weight (lbs) 71.214 kg Weight (Calculated Kilograms) 71.2 Weight (Calculated Grams) 52653.0 [place] Body Weight 142 % [place] Body Weight 110 Weight Status Underweight GI Symptoms Difficult in: Swallowing Food Allergies No Cultural/Ethnic/Sabianist Belief None indicated Usual diet at home unknown Skin Integrity/Comment: Cali 11, decubitus ulcer on left hip, right heel, right thigh, sacrum Current %PO intubated Estimated Nutritional Goals BEE in Kcals: Adj wt of IBW Calories/Kcals/Kg [place] body weight 64.5kg Kcals Calculated 8312-3886 kcal/day (25-30 kcal /kg) - intubated, HD, wounds Protein: Adj wt of IBW Protein g/kg: (1.5-2 gm/kg) - HD, wounds, I& D/wound vac Protein Calculated 95-130 gm/day Fluid: ml Per MD Dialysis Nutritional Problem 2. Problem Problem Altered nutrition related lab values related to Etiology renal dysfunction/ electrolyte imbalance aeb Signs/Symptoms: Na 133, K 5.1, BUN 115, Cr 4.9 (HD patient), Glucose 128-233 1. Problem Problem Increased nutrient needs related to Etiology impaired skin integrity/ hypermetabolic state aeb Signs/Symptoms: patient receives HD and has multiple decubitus ulcers, S/p wound vac application Intervention/Recommendation Comments 1. When medically appropriate, start tube feeding Novasource Renal with goal rate 40 ml/hr . This provides 960 ml volume, 1920 kcal, 87gm protein, 688 ml free water. Add Prosource 1 packet/day for an additional 15gm protein (102 gm/day total ). Expected Outcomes/Goals Expected Outcomes/Goals Patient receives nutrition within 48 hours, nutrition related labs normalize, weight remains stable or trends toward ideal body weight. F/U as HR 09/17-
[2017-09-19] MEDS: Lactobacillus Rhamnosus 10 Billion CFU Capsule GT SCH (17:36)
[2017-09-19] MEDS: Venelex 60gm Tube TP SCH (17:54)
[2017-09-19] MEDS ORDERED: Amikacin 250 mg in D5W 100mL IV SCH (19:00)
--- NOTE | 2017-09-20 00:24 | Progress Notes ---
DATE: 09/19/2017 PROBLEM LIST: 1. Status post respiratory failure post-surgery. 2. Bilateral effusion. 3. Suspect obstructive sleep apnea syndrome with recent neck surgery. 4. Previous diverting colostomy recently. SYMPTOMS: He does open his eyes. No respiratory distress on exam. Currently on a nasal O2 saturating 100%. PHYSICAL EXAMINATION: VITAL SIGNS: Temperature is 97, respirations 15. NECK: Veins not visualized. CHEST: Shows diminished air entry with occasional rhonchi. HEART: Regular. ABDOMEN: Soft, nontender with colostomy and G-tube. LABORATORY DATA: White count is 16,000, hemoglobin 8.2, ABG shows slightly respiratory alkalosis with pO2 of 111 and on 32%. ASSESSMENT: The patient clinically appears to be stable, improving, post extubation yesterday with fluid overload pattern, suspect obstructive sleep apnea syndrome, ? chronic obstructive pulmonary disease. PLANS AND SUGGESTIONS: We will continue current treatment, discuss with RT, okay to transfer and can followup as an outpatient at the [facility]. JOB# [id number]
[2017-09-20 14:23] LABS: FERRITIN 1563 ng/mL (30-400); IRON SATURATION 27 % (15-55); TIBC (LC) 121 ug/dL (250-450); UIBC 88 ug/dL (111-343)
== END 2017-09-19 22:25 | DRG 853 ==
LOC: MSI 07:45 → ICU 12:01
PROVIDERS: ADMIT Internal Medicine; ATTEND Internal Medicine
PROC: 0D1K0Z4 Bypass Ascending Colon to Cutaneous, Open Approach (ICD-10-PCS; 2017-09-14)
PROC: 5A1945Z Respiratory Ventilation, 24-96 Consecutive Hours (ICD-10-PCS; 2017-09-14)
PROC: 0JB70ZZ Excision of Back Subcutaneous Tissue and Fascia, Open Approach (ICD-10-PCS; 2017-09-14)
PROC: 0YBC0ZZ Excision of Right Upper Leg, Open Approach (ICD-10-PCS; principal; 2017-09-17)
PROC: 0QB10ZZ Excision of Sacrum, Open Approach (ICD-10-PCS; 2017-09-17)
PROC: 5A09357 Assistance with Respiratory Ventilation, Less than 24 Consecutive Hours, Continuous Positive Airway Pressure (ICD-10-PCS; 2017-09-18)
DX: A41.9 Sepsis, unspecified organism (principal); L89.154 Pressure ulcer of sacral region, stage 4; J69.0 Pneumonitis due to inhalation of food and vomit; J96.00 Acute respiratory failure, unspecified whether with hypoxia or hypercapnia; I13.2 Hypertensive heart and chronic kidney disease with heart failure and with stage 5 chronic kidney disease, or end stage renal disease; L89.229 Pressure ulcer of left hip, unspecified stage; L89.214 Pressure ulcer of right hip, stage 4; I48.92 Unspecified atrial flutter; E11.22 Type 2 diabetes mellitus with diabetic chronic kidney disease; N18.6 End stage renal disease; G82.20 Paraplegia, unspecified; I50.30 Unspecified diastolic (congestive) heart failure; E11.51 Type 2 diabetes mellitus with diabetic peripheral angiopathy without gangrene; F03.90 Unspecified dementia, unspecified severity, without behavioral disturbance, psychotic disturbance, mood disturbance, and anxiety; Z99.2 Dependence on renal dialysis; E78.5 Hyperlipidemia, unspecified; I25.10 Atherosclerotic heart disease of native coronary artery without angina pectoris; E87.6 Hypokalemia; R32 Unspecified urinary incontinence; F17.210 Nicotine dependence, cigarettes, uncomplicated; I25.2 Old myocardial infarction; D63.1 Anemia in chronic kidney disease; J44.9 Chronic obstructive pulmonary disease, unspecified; L89.619 Pressure ulcer of right heel, unspecified stage; L89.529 Pressure ulcer of left ankle, unspecified stage; L89.629 Pressure ulcer of left heel, unspecified stage; L89.899 Pressure ulcer of other site, unspecified stage; L89.519 Pressure ulcer of right ankle, unspecified stage; Z95.1 Presence of aortocoronary bypass graft; Z93.1 Gastrostomy status; Z79.4 Long term (current) use of insulin; Z79.51 Long term (current) use of inhaled steroids
CPT/HCPCS: 36415-UA; 36600-90; 71010-TC; 80048-TC; 80053-TC; 80074-90; 80150-TC; 80202-TC; 82140-TC; 82607-90; 82728-90; 82746-90; 82803-TC; 82948-90; 83036-90; 83540-90; 83550-90; 83735-TC; 83880-TC; 84100-TC; 85007-TC; 85027-TC; 87070-90; 87075-90; 87205-90; 88304-TC; 90779; 90937; 93005; 94002; 94003; 94640; 94660; 94664; 96372; J0278; J0885; J1644; J1815; J2001; J2185; J2250; J2270; J2405; J2543; J2704; J3370; J3490; J7030; J7042; J7613; V2790; X6024; X6158; Z7610